=== PATIENT | male | born 1945 | race Caucasian/White ===

== ENCOUNTER 2018-05-31 15:32 | Inpatient (IN) | payer OTHER, MEDICARE ==
[2018-05-31] MEDS ORDERED: SODIUM CHLORIDE 0.9% 1,000 ML IV ONE (15:46)
[2018-05-31] MEDS ORDERED: SODIUM CHLORIDE 0.9% 500 ML IV ONE (15:46)
--- NOTE | 2018-05-31 16:28 | ED ---
General Adult HPI - General Chief complaint: Altered Mental Status Stated complaint: Dehydrated Time Seen by Provider: 05/31/18 15:34 Source: patient, EMS, RN notes reviewed, old records reviewed Mode of arrival: EMS Limitations: altered mental status - History of Present Illness Initial comments: 73-year-old male, found in his apartment with chief complaint of altered mental status. He was found by police, EMS were called. Patient was covered in feces. He is normally alert and oriented, today he is confused. Patient was in a warm environment. No history obtained from the patient. On initial evaluation, he is confused. He is moving all extremities symmetrically. Unknown time course exactly, however EMS state that there was a well check on the patient yesterday and he appeared normal at that time. Patient also admits to alcohol consumption, states his last drink was 2-3 days ago. - Related Data Home Medications Medication Instructions Recorded Confirmed No Known Home Medications 05/31/18 05/31/18 Allergies Allergy/AdvReac Type Severity Reaction Status Date / Time adhesive tape Allergy Rash/Hives Verified 05/31/18 16:47 Review of Systems ROS Statement: Those systems with pertinent positive or pertinent negative responses have been documented in the HPI. ROS Other: All systems not noted in ROS Statement are negative. Past Medical History Past Medical History: No Reported History, Myocardial Infarction ([place]), Osteoarthritis (OA) Additional Past Medical History / Comment(s): alcoholism Last Myocardial Infarction Date:: 1995 History of Any Multi-Drug Resistant Organisms: None Reported Past Surgical History: Orthopedic Surgery Additional Past Surgical History / Comment(s): left shoulder sx (shrapnel was in ) Past Anesthesia/Blood Transfusion Reactions: No Reported Reaction Additional Past Anesthesia/Blood Transfusion Reaction / Comment(s): no hx of transfusions Past Psychological History: No Psychological Hx Reported, PTSD Smoking Status: Current some day smoker Past Alcohol Use History: Abuse Past Drug Use History: None Reported - Past Family History Father Family Medical History: Cancer Additional Family Medical History / Comment(s): from Lung CA Mother Family Medical History: CVA/TIA, Myocardial Infarction ([place]) Additional Family Medical History / Comment(s): from [place] 04/2016 General Exam Limitations: altered mental status General appearance: in no apparent distress Head exam: Present: atraumatic, normocephalic Eye exam: Present: normal appearance, PERRL ENT exam: Present: mucous membranes dry Neck exam: Present: normal inspection. Absent: tenderness, meningismus Respiratory exam: Present: normal lung sounds bilaterally. Absent: respiratory distress, wheezes Cardiovascular Exam: Present: normal rhythm, bradycardia GI/Abdominal exam: Present: soft. Absent: distended, tenderness Extremities exam: Present: normal inspection, normal capillary refill. Absent: pedal edema Neurological exam: Absent: oriented X3, motor sensory deficit Skin exam: Present: warm, dry, intact. Absent: cyanosis, diaphoretic Course Vital Signs 05/31/18 05/31/18 15:43 18:28 Temperature 99.5 F Pulse Rate 57 L 77 Respiratory 18 18 Rate Blood Pressure 118/64 126/69 O2 Sat by Pulse 99 100 Oximetry EKG Findings - EKG Comments: EKG Findings:: EKG: Sinus rhythm with short WI, rate of 78, WI interval 108, QRS duration 96 QTC 456. Medical Decision Making - Medical Decision Making 73-year-old male presenting from home with altered level of consciousness. Minimal history available at the time my evaluation. Patient's neurologic exam is nonfocal. His pupils are equal round reactive to light. There is apparently some history of alcohol use, patient states his last drink was [address] is obtained, this is negative for intracranial hemorrhage or mass effect. Chest x-ray shows some pleural scarring with no focal pneumonia or acute process. Laboratory studies reveal white blood cell count 7.1, hemoglobin is 7 with most recent for comparison is hemoglobin of 12. He does have history of GI bleed in the past. Hemoccult is obtained and this is negative. There is no bright red bleeding per rectum, no melanotic stool. Electrolytes reveal sodium of 126 with recent comparison of 135. Urinalysis shows 2+ ketones consistent with dehydration. Troponin is elevated at 0.224. EKG does not show any definitive signs of acute ischemia. This level will be trended. No heparin initiated as patient's hemoglobin is 7 and there is uncertainty of current bleeding. He is started on protonix. He is given 1 unit of blood given the low hemoglobin and elevated troponin. He will be admitted for further treatment and evaluation. - Lab Data Result diagrams: 05/31/18 17:06 05/31/18 17:06 Lab Results 05/31/18 05/31/18 05/31/18 Range/Units 17:06 17:06 17:06 WBC 7.1 (3.8-10.6) k/uL RBC 3.89 L (4.30-5.90) m/uL Hgb 7.0 L* (13.0-17.5) gm/dL Hct 25.4 L (39.0-53.0) % MCV 65.3 L (80.0-100.0) fL MCH 17.9 L (25.0-35.0) pg MCHC 27.4 L (31.0-37.0) g/dL RDW 18.2 H (11.5-15.5) % Plt Count 341 (150-450) k/uL Neutrophils % 83 % Lymphocytes % 10 % Monocytes % 6 % Eosinophils % 1 % Basophils % 0 % Neutrophils # 5.9 (1.3-7.7) k/uL Lymphocytes # 0.7 L (1.0-4.8) k/uL Monocytes # 0.4 (0-1.0) k/uL Eosinophils # 0.1 (0-0.7) k/uL Basophils # 0.0 (0-0.2) k/uL Manual Slide Review Performed Large Platelets Present Polychromasia Present Hypochromasia Marked Poikilocytosis Slight Poikilocytosis (manual Present Anisocytosis Slight Microcytosis Marked Target Cells Present PT (9.0-12.0) sec INR (<1.2) APTT (22.0-30.0) sec Sodium 126 L (137-145) mmol/L Potassium 4.2 (3.5-5.1) mmol/L Chloride 91 L (98-107) mmol/L Carbon Dioxide 21 L (22-30) mmol/L Anion Gap 14 mmol/L BUN 7 L (9-20) mg/dL Creatinine 0.64 L (0.66-1.25) mg/dL Est GFR (CKD-EPI)AfAm >90 (>60 ml/min/1.73 sqM) Est GFR (CKD-EPI)NonAf >90 (>60 ml/min/1.73 sqM) Glucose 79 (74-99) mg/dL Calcium 8.0 L (8.4-10.2) mg/dL Total Bilirubin 0.8 (0.2-1.3) mg/dL AST 46 (17-59) U/L ALT 34 (21-72) U/L Alkaline Phosphatase 69 (38-126) U/L Total Creatine Kinase 492 H (55-170) U/L CK-MB (CK-2) 4.4 H* (0.0-2.4) ng/mL CK-MB (CK-2) Rel Index 0.9 Troponin I 0.224 H* (0.000-0.034) ng/mL Total Protein 6.0 L (6.3-8.2) g/dL Albumin 3.2 L (3.5-5.0) g/dL Urine Color Urine Appearance (Clear) Urine pH (5.0-8.0) Ur Specific [place] (1.001-1.035) Urine Protein (Negative) Urine Glucose (UA) (Negative) Urine Ketones (Negative) Urine Blood (Negative) Urine Nitrite (Negative) Urine Bilirubin (Negative) Urine Urobilinogen (<2.0) mg/dL Ur Leukocyte Esterase (Negative) Stool Occult Blood (Negative) Urine Opiates Screen (NotDetected) Ur Oxycodone Screen (NotDetected) Urine Methadone Screen (NotDetected) Ur Propoxyphene Screen (NotDetected) Ur Barbiturates Screen (NotDetected) U Tricyclic Antidepress (NotDetected) Ur Phencyclidine Scrn (NotDetected) Ur Amphetamines Screen (NotDetected) U Methamphetamines Scrn (NotDetected) U Benzodiazepines Scrn (NotDetected) Urine Cocaine Screen (NotDetected) U Marijuana (THC) Screen (NotDetected) Serum Alcohol <10 mg/dL 05/31/18 05/31/18 05/31/18 Range/Units 17:06 18:15 18:24 WBC (3.8-10.6) k/uL RBC (4.30-5.90) m/uL Hgb (13.0-17.5) gm/dL Hct (39.0-53.0) % MCV (80.0-100.0) fL MCH (25.0-35.0) pg MCHC (31.0-37.0) g/dL RDW (11.5-15.5) % Plt Count (150-450) k/uL Neutrophils % % Lymphocytes % % Monocytes % % Eosinophils % % Basophils % % Neutrophils # (1.3-7.7) k/uL Lymphocytes # (1.0-4.8) k/uL Monocytes # (0-1.0) k/uL Eosinophils # (0-0.7) k/uL Basophils # (0-0.2) k/uL Manual Slide Review Large Platelets Polychromasia Hypochromasia Poikilocytosis Poikilocytosis (manual Anisocytosis Microcytosis Target Cells PT 11.4 (9.0-12.0) sec INR 1.2 H (<1.2) APTT 27.9 (22.0-30.0) sec Sodium (137-145) mmol/L Potassium (3.5-5.1) mmol/L Chloride (98-107) mmol/L Carbon Dioxide (22-30) mmol/L Anion Gap mmol/L BUN (9-20) mg/dL Creatinine (0.66-1.25) mg/dL Est GFR (CKD-EPI)AfAm (>60 ml/min/1.73 sqM) Est GFR (CKD-EPI)NonAf (>60 ml/min/1.73 sqM) Glucose (74-99) mg/dL Calcium (8.4-10.2) mg/dL Total Bilirubin (0.2-1.3) mg/dL AST (17-59) U/L ALT (21-72) U/L Alkaline Phosphatase (38-126) U/L Total Creatine Kinase (55-170) U/L CK-MB (CK-2) (0.0-2.4) ng/mL CK-MB (CK-2) Rel Index Troponin I (0.000-0.034) ng/mL Total Protein (6.3-8.2) g/dL Albumin (3.5-5.0) g/dL Urine Color Yellow Urine Appearance Clear (Clear) Urine pH 5.5 (5.0-8.0) Ur Specific [place] 1.010 (1.001-1.035) Urine Protein Negative (Negative) Urine Glucose (UA) Negative (Negative) Urine Ketones 2+ H (Negative) Urine Blood Negative (Negative) Urine Nitrite Negative (Negative) Urine Bilirubin Negative (Negative) Urine Urobilinogen <2.0 (<2.0) mg/dL Ur Leukocyte Esterase Negative (Negative) Stool Occult Blood Negative (Negative) Urine Opiates Screen Not Detected (NotDetected) Ur Oxycodone Screen Not Detected (NotDetected) Urine Methadone Screen Not Detected (NotDetected) Ur Propoxyphene Screen Not Detected (NotDetected) Ur Barbiturates Screen Not Detected (NotDetected) U Tricyclic Antidepress Not Detected (NotDetected) Ur Phencyclidine Scrn Not Detected (NotDetected) Ur Amphetamines Screen Not Detected (NotDetected) U Methamphetamines Scrn Not Detected (NotDetected) U Benzodiazepines Scrn Not Detected (NotDetected) Urine Cocaine Screen Not Detected (NotDetected) U Marijuana (THC) Screen Not Detected (NotDetected) Serum Alcohol mg/dL Critical Care Time Critical Care Time: Yes Total Critical Care Time: 35 Disposition Clinical Impression: Altered mental status, Hyponatremia, Anemia Disposition: ADMITTED IP TO THIS [facility] Condition: Serious Is patient prescribed a controlled substance at d/c from ED?: No Referrals: Rowan Del Castillo MD [STAFF PHYSICIAN] - 1-2 days Decision to Admit Reason: Admit from EC Decision Date: 05/31/18 Decision Time: 19:31
[2018-05-31 17:24] LABS: Anisocytosis Slight; Basophils % (A) 0 %; Eosinophils # (A) 0.1 k/uL (0-0.7); Eosinophils % (A) 1 %; HCT 25.4 % (39.0-53.0); Hypochromasia Marked; Lymphocytes # (A) 0.7 k/uL (1.0-4.8); Lymphocytes % (A) 10 %; MCH 17.9 pg (25.0-35.0); MCHC 27.4 g/dL (31.0-37.0); MCV 65.3 fL (80.0-100.0); Mean Platelet Volume 6.8; Microcytosis Marked; Monocytes # (A) 0.4 k/uL (0-1.0); Monocytes % (A) 6 %; Neutrophils # (A) 5.9 k/uL (1.3-7.7); Neutrophils % (A) 83 %; Platelet Count 341 k/uL (150-450); Poikilocytosis Slight; RBC 3.89 m/uL (4.30-5.90); RDW 18.2 % (11.5-15.5); WBC 7.1 k/uL (3.8-10.6)
--- NOTE | 2018-05-31 17:40 | CT ---
EXAMINATION TYPE: CT brain wo con DATE OF EXAM: 05/31/2018 COMPARISON: NONE HISTORY: Patient having altered mental status. CT DLP: 1266 mGycm Automated exposure control for dose reduction was used. FINDINGS: There is cerebral cortical atrophy. There is no mass effect nor midline shift. There is no sign of in tracranial hemorrhage. There is some hypodensity in the periventricular white matter. The calvarium i s intact. IMPRESSION: CEREBRAL ATROPHY AND CHRONIC SMALL VESSEL ISCHEMIA. NO ACUTE INTRACRANIAL ABNORMALITY.
[2018-05-31 17:44] LABS: ALT 34 U/L (21-72); AST 46 U/L (17-59); Albumin 3.2 g/dL (3.5-5.0); Alcohol <10 mg/dL; Alkaline Phosphatase 69 U/L (38-126); Anion Gap 14 mmol/L; Blood Urea Nitrogen 7 mg/dL (9-20); Carbon Dioxide 21 mmol/L (22-30); Chloride 91 mmol/L (98-107); Glucose 79 mg/dL (74-99); Potassium 4.2 mmol/L (3.5-5.1); Sodium 126 mmol/L (137-145); Total Bilirubin 0.8 mg/dL (0.2-1.3)
--- NOTE | 2018-05-31 17:44 | XR ---
EXAMINATION TYPE: XR chest 2V DATE OF EXAM: 05/31/2018 COMPARISON: 11/09/2016 HISTORY: Altered mental status TECHNIQUE: Frontal and lateral views of the chest are obtained. FINDINGS: There is no heart failure nor confluent pneumonic infiltrate. There is slight blunting of left costophrenic angle. Thoracic aorta is atheromatous. Mediastinum is not enlarged. IMPRESSION: Mild pleural diaphragmatic scarring at the left lung base without change.
[2018-05-31 17:45] LABS: INR 1.2 (<1.2); Partial Thromboplastin Time 27.9 sec (22.0-30.0); Prothrombin Time 11.4 sec (9.0-12.0)
[2018-05-31 17:55] LABS: Large Platelets Present; Poikilocytosis (M) Present; Polychromasia Present; Target Cells Present
[2018-05-31 17:59] LABS: Creatine Kinase MB 4.4 ng/mL (0.0-2.4); Troponin I 0.224 ng/mL (0.000-0.034)
[2018-05-31] MEDS ORDERED: LORazepam 2 MG/ML INJ IV PRN ×3 (18:10)
[2018-05-31] MEDS ORDERED: THIAMINE 100 MG/ML 2 ML VIAL IM STA (18:10)
[2018-05-31 18:37] LABS: Appearance,Urine Clear (Clear); Bilirubin,Urine Negative (Negative); Blood,Urine Negative (Negative); Color,Urine Yellow; Glucose,Urine (UA) Negative (Negative); Ketones,Urine 2+ (Negative); Leukocyte Esterase,Urine Negative (Negative); Nitrite,Urine Negative (Negative); PH, Urine 5.5 (5.0-8.0); Protein,Urine Negative (Negative); Urobilinogen,Urine <2.0 mg/dL (<2.0)
[2018-05-31 18:47] LABS: Urn Cannabinoid Scrn Not Detected (NotDetected)
[2018-05-31 18:48] LABS: Amphetamine Screen,Urine Not Detected (NotDetected); Barbiturate Screen,Urine Not Detected (NotDetected); Benzodiazepines Screen,Urine Not Detected (NotDetected); Cocaine Screen,Urine Not Detected (NotDetected); Methadone Screen, Urine Not Detected (NotDetected); Opiate Screen,Urine Not Detected (NotDetected); Oxycodone Screen, Urine Not Detected (NotDetected); Phencyclidine Screen,Urine Not Detected (NotDetected); Tricyclic Antidepressant,Urine Not Detected (NotDetected)
[2018-05-31] MEDS ORDERED: PANTOPRAZOLE 40 MG/10 ML VIAL IVP STA (19:05)
[2018-05-31] MEDS ORDERED: NALOXONE 0.4 MG/ML 1 ML VIAL IV PRN (19:19)
[2018-05-31] MEDS ORDERED: ACETAMINOPHEN TAB 500 MG TAB PO STA (21:30)
[2018-05-31] MEDS ORDERED: ACETAMINOPHEN TAB 325 MG TAB PO STA (22:00)
[2018-06-01 06:50] LABS: Anisocytosis Slight; Basophils % (A) 0 %; Eosinophils # (A) 0.1 k/uL (0-0.7); Eosinophils % (A) 1 %; HCT 26.3 % (39.0-53.0); HGB 7.3 gm/dL (13.0-17.5); Hypochromasia Marked; Lymphocytes # (A) 1.1 k/uL (1.0-4.8); Lymphocytes % (A) 20 %; MCH 19.1 pg (25.0-35.0); MCHC 27.9 g/dL (31.0-37.0); MCV 68.3 fL (80.0-100.0); Microcytosis Marked; Monocytes # (A) 0.5 k/uL (0-1.0); Monocytes % (A) 10 %; Neutrophils # (A) 3.5 k/uL (1.3-7.7); Neutrophils % (A) 67 %; Platelet Count 267 k/uL (150-450); Poikilocytosis Moderate; RBC 3.86 m/uL (4.30-5.90); RDW 19.5 % (11.5-15.5); WBC 5.2 k/uL (3.8-10.6)
[2018-06-01 07:12] LABS: Anion Gap 11 mmol/L; Blood Urea Nitrogen 7 mg/dL (9-20); Calcium 7.8 mg/dL (8.4-10.2); Carbon Dioxide 22 mmol/L (22-30); Chloride 98 mmol/L (98-107); Glucose 77 mg/dL (74-99); Potassium 3.7 mmol/L (3.5-5.1); Sodium 131 mmol/L (137-145)
[2018-06-01] MEDS: PANTOPRAZOLE 40 MG/10 ML VIAL IVP SCH ×2 (09:04→19:35)
[2018-06-01] MEDS: THIAMINE 100 MG TAB PO SCH ×2 (11:25→17:54)
--- NOTE | 2018-06-01 17:30 | P.HPIM ---
History of Present Illness 70-year-old male was brought in with altered mental status was completely covered in feces apparently when he came to the hospital. Patient appeared to be severely dehydrated hyponatremic. Patient's is able to give a good history to me although definitely confused alert oriented times almost 2-3. Patient's sodium did improve with IV fluids after that his mental status improved. Patient did tell me that his last alcohol use was 2-3 days ago patient presently doesn't have any all call withdraws serum alcohol level was less than 10 [address] it appears like patient lives in a trailer. Review of Systems All other systems are negative except those mentioned above Past Medical History Past Medical History: No Reported History, Myocardial Infarction ([place]), Osteoarthritis (OA) Additional Past Medical History / Comment(s): alcoholism Last Myocardial Infarction Date:: 1995 History of Any Multi-Drug Resistant Organisms: None Reported Past Surgical History: Orthopedic Surgery Additional Past Surgical History / Comment(s): left shoulder sx (shrapnel was in ) Past Anesthesia/Blood Transfusion Reactions: No Reported Reaction Additional Past Anesthesia/Blood Transfusion Reaction / Comment(s): no hx of transfusions Past Psychological History: No Psychological Hx Reported, PTSD Smoking Status: Current every day smoker Past Alcohol Use History: Abuse Past Drug Use History: None Reported - Past Family History Father Family Medical History: Cancer Additional Family Medical History / Comment(s): from Lung CA Mother Family Medical History: CVA/TIA, Myocardial Infarction ([place]) Additional Family Medical History / Comment(s): from [place] 04/2016 Medications and Allergies Home Medications Medication Instructions Recorded Confirmed Type No Known Home Medications 05/31/18 05/31/18 History Allergies Allergy/AdvReac Type Severity Reaction Status Date / Time adhesive tape Allergy Rash/Hives Verified 05/31/18 16:47 Physical Exam Vitals: Vital Signs Temp Pulse Pulse Resp BP BP Pulse Ox 06/01/18 11:25 97.8 F 64 16 101/57 96 06/01/18 08:57 97 06/01/18 08:00 98.5 F 70 16 96/55 97 06/01/18 04:00 99.3 F 73 18 93/53 97 06/01/18 00:00 75 17 05/31/18 23:58 97.8 F 75 17 95/63 98 05/31/18 23:29 97.8 F 74 17 95/63 100 05/31/18 22:30 98.8 F 74 17 101/59 100 05/31/18 22:03 100.0 F H 90 16 111/56 100 05/31/18 21:33 100.3 F H 73 16 109/59 99 05/31/18 21:22 100.7 F H 75 16 105/59 05/31/18 18:28 77 18 126/69 100 Intake and Output 06/01/18 06/01/18 06/01/18 06:59 14:59 22:59 Intake Total 1245 360 Output Total 950 Balance 295 360 Intake: Intake, IV Titration 375 Amount Sodium Chloride 0.9% 1, 375 000 ml @ 75 mls/hr IV . [id number] Rx#:[id number] Oral 250 360 Blood Product 620 Rc As-1 Unit 310 [id number] Output: Urine 950 Other: Voiding Method Urinal # Voids 1 1 # Bowel Movements 0 Weight 63.1 kg PHYSICAL EXAMINATION: GENERAL: The patient is alert and oriented x2-3, desheveled, appears to have some baseline confusion from chronic encephalopathy from alcoholism HEENT: Pupils are round and equally reacting to light. EOMI. No scleral icterus. No conjunctival pallor. Normocephalic, atraumatic. No pharyngeal erythema. No thyromegaly. CARDIOVASCULAR: S1 and S2 present. No murmurs, rubs, or gallops. PULMONARY: Chest is clear to auscultation, no wheezing or crackles. ABDOMEN: Soft, nontender, nondistended, normoactive bowel sounds. No palpable organomegaly. MUSCULOSKELETAL: No joint swelling or deformity. EXTREMITIES: No cyanosis, clubbing, or pedal edema. NEUROLOGICAL: Gross neurological examination did not reveal any focal deficits. SKIN: No rashes. Results CBC & Chem 7: 06/01/18 06:21 06/01/18 06:21 Labs: Abnormal Lab Results - Last 24 Hours (Table) 05/31/18 05/31/18 05/31/18 Range/Units 17:01 17:06 17:06 RBC 3.89 L (4.30-5.90) m/uL Hgb 7.0 L* (13.0-17.5) gm/dL Hct 25.4 L (39.0-53.0) % MCV 65.3 L (80.0-100.0) fL MCH 17.9 L (25.0-35.0) pg MCHC 27.4 L (31.0-37.0) g/dL RDW 18.2 H (11.5-15.5) % Lymphocytes # 0.7 L (1.0-4.8) k/uL INR (<1.2) Sodium (137-145) mmol/L Chloride (98-107) mmol/L Carbon Dioxide (22-30) mmol/L BUN (9-20) mg/dL Creatinine (0.66-1.25) mg/dL Calcium (8.4-10.2) mg/dL Total Creatine Kinase 492 H (55-170) U/L CK-MB (CK-2) 4.4 H* (0.0-2.4) ng/mL Troponin I 0.224 H* (0.000-0.034) ng/mL Total Protein (6.3-8.2) g/dL Albumin (3.5-5.0) g/dL Urine Ketones (Negative) Crossmatch See Detail 05/31/18 05/31/18 05/31/18 Range/Units 17:06 17:06 18:24 RBC (4.30-5.90) m/uL Hgb (13.0-17.5) gm/dL Hct (39.0-53.0) % MCV (80.0-100.0) fL MCH (25.0-35.0) pg MCHC (31.0-37.0) g/dL RDW (11.5-15.5) % Lymphocytes # (1.0-4.8) k/uL INR 1.2 H (<1.2) Sodium 126 L (137-145) mmol/L Chloride 91 L (98-107) mmol/L Carbon Dioxide 21 L (22-30) mmol/L BUN 7 L (9-20) mg/dL Creatinine 0.64 L (0.66-1.25) mg/dL Calcium 8.0 L (8.4-10.2) mg/dL Total Creatine Kinase (55-170) U/L CK-MB (CK-2) (0.0-2.4) ng/mL Troponin I (0.000-0.034) ng/mL Total Protein 6.0 L (6.3-8.2) g/dL Albumin 3.2 L (3.5-5.0) g/dL Urine Ketones 2+ H (Negative) Crossmatch 06/01/18 06/01/18 Range/Units 06:21 06:21 RBC 3.86 L (4.30-5.90) m/uL Hgb 7.3 L (13.0-17.5) gm/dL Hct 26.3 L (39.0-53.0) % MCV 68.3 L (80.0-100.0) fL MCH 19.1 L (25.0-35.0) pg MCHC 27.9 L (31.0-37.0) g/dL RDW 19.5 H (11.5-15.5) % Lymphocytes # (1.0-4.8) k/uL INR (<1.2) Sodium 131 L (137-145) mmol/L Chloride (98-107) mmol/L Carbon Dioxide (22-30) mmol/L BUN 7 L (9-20) mg/dL Creatinine 0.59 L (0.66-1.25) mg/dL Calcium 7.8 L (8.4-10.2) mg/dL Total Creatine Kinase (55-170) U/L CK-MB (CK-2) (0.0-2.4) ng/mL Troponin I (0.000-0.034) ng/mL Total Protein (6.3-8.2) g/dL Albumin (3.5-5.0) g/dL Urine Ketones (Negative) Crossmatch Thrombosis Risk Factor Assmnt - Choose All That Apply Each Risk Factor Represents 2 Points: Age 61-74 years Thrombosis Risk Factor Assessment Total Risk Factor Score: 2 Thrombosis Risk Factor Assessment Level: Low Risk Assessment and Plan Plan: -Altered mental status secondary to severe dehydration and metabolic encephalopathy and hyponatremia improved with IV fluids. 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
[2018-06-01] MEDS: SODIUM CHLORIDE 0.9% 1,000 ML IV SCH ×2 (19:40→22:43)
[2018-06-02 06:22] LABS: Anisocytosis Slight; HCT 24.1 % (39.0-53.0); Hypochromasia Marked; MCH 19.2 pg (25.0-35.0); MCHC 28.2 g/dL (31.0-37.0); MCV 68.1 fL (80.0-100.0); Mean Platelet Volume 7.1; Microcytosis Marked; Platelet Count 234 k/uL (150-450); Poikilocytosis Moderate; RBC 3.53 m/uL (4.30-5.90); RDW 19.8 % (11.5-15.5); WBC 5.1 k/uL (3.8-10.6)
[2018-06-02 06:30] LABS: HGB 6.8 gm/dL (13.0-17.5)
[2018-06-02 06:39] LABS: Anion Gap 8 mmol/L; Blood Urea Nitrogen 7 mg/dL (9-20); Calcium 7.7 mg/dL (8.4-10.2); Carbon Dioxide 24 mmol/L (22-30); Chloride 99 mmol/L (98-107); Glucose 86 mg/dL (74-99); Potassium 3.3 mmol/L (3.5-5.1); Sodium 131 mmol/L (137-145)
[2018-06-02 09:48] LABS: Anisocytosis Slight; Basophils % (A) 1 %; Eosinophils # (A) 0.1 k/uL (0-0.7); Eosinophils % (A) 1 %; HCT 24.7 % (39.0-53.0); Hypochromasia Marked; Lymphocytes # (A) 0.9 k/uL (1.0-4.8); Lymphocytes % (A) 18 %; MCH 19.2 pg (25.0-35.0); MCHC 27.9 g/dL (31.0-37.0); Mean Platelet Volume 7.9; Microcytosis Marked; Monocytes # (A) 0.4 k/uL (0-1.0); Monocytes % (A) 8 %; Neutrophils # (A) 3.6 k/uL (1.3-7.7); Neutrophils % (A) 71 %; Platelet Count 234 k/uL (150-450); Poikilocytosis Moderate; RBC 3.58 m/uL (4.30-5.90); RDW 19.6 % (11.5-15.5)
[2018-06-02 09:50] LABS: HGB 6.9 gm/dL (13.0-17.5)
[2018-06-02] MEDS ORDERED: Potassium Replacement Protocol 1 EACH MISC MISCELLANE PRN (10:23)
[2018-06-02] MEDS: PANTOPRAZOLE 40 MG/10 ML VIAL IVP SCH ×2 (10:46→20:16)
[2018-06-02] MEDS: SODIUM CHLORIDE 0.9% 1,000 ML IV SCH ×2 (10:50→20:15)
[2018-06-02] MEDS: POTASSIUM CHLORIDE ER 20 MEQ TAB.ER PO SCH ×2 (11:21→13:11)
[2018-06-02] MEDS: THIAMINE 100 MG TAB PO SCH ×2 (11:25→15:38)
[2018-06-03] MEDS: SODIUM CHLORIDE 0.9% 1,000 ML IV SCH ×3 (06:27→20:02)
[2018-06-03 08:57] LABS: Anion Gap 8 mmol/L; Blood Urea Nitrogen 5 mg/dL (9-20); Carbon Dioxide 26 mmol/L (22-30); Chloride 101 mmol/L (98-107); Glucose 84 mg/dL (74-99); Potassium 3.4 mmol/L (3.5-5.1); Sodium 135 mmol/L (137-145)
[2018-06-03] MEDS: PANTOPRAZOLE 40 MG/10 ML VIAL IVP SCH ×2 (08:57→20:02)
[2018-06-03 11:29] LABS: Anisocytosis Moderate; HCT 25.2 % (39.0-53.0); Hypochromasia Marked; MCH 19.3 pg (25.0-35.0); MCHC 27.7 g/dL (31.0-37.0); MCV 69.6 fL (80.0-100.0); Mean Platelet Volume 7.3; Microcytosis Marked; Platelet Count 248 k/uL (150-450); Poikilocytosis Moderate; RBC 3.62 m/uL (4.30-5.90); RDW 20.4 % (11.5-15.5); WBC 5.6 k/uL (3.8-10.6)
[2018-06-03] MEDS ORDERED: SODIUM FERRIC GLUCONAT-SUCROSE 125 MG in SODIUM CHLORIDE 0.9% 100 ML IVPB ONE (12:00)
[2018-06-03] MEDS: THIAMINE 100 MG TAB PO SCH ×2 (12:44→17:29)
[2018-06-03] MEDS ORDERED: POTASSIUM CHLORIDE ER 20 MEQ TAB.ER PO STA (12:47)
--- NOTE | 2018-06-03 12:50 | P.PN ---
Subjective Progress Note Date: 06/02/18 70-year-old man came in extremely disheveled state, alcohol abuse altered mental status and hyponatremia which improved hyponatremia secondary to intravascular depletion and due to alcoholism. Patient was evaluated by physical therapy and will require placement to subacute rehabilitation. Also mental status is improving significantly and patient is available to provide me good history today. Constitutional: Denied any fatigue denied any fever. Cardio vascular: denied any chest pain, palpitations Gastrointestinal denied any nausea vomiting Pulmonary: Denied any shortness of breath cough Neurologic denied any new focal deficits Objective - Vital Signs Vital signs: Vital Signs Temp 98.2 F 06/03/18 11:34 Pulse 63 06/03/18 11:34 Resp 18 06/03/18 11:34 BP 136/63 06/03/18 11:34 Pulse Ox 100 06/03/18 11:34 Intake & Output 06/02/18 06/03/18 06/03/18 18:59 06:59 18:59 Intake Total 1340 800 0 Output Total 125 200 Balance 1215 600 0 Weight 52 kg Intake: Intake, IV Titration 750 800 Amount Sodium Chloride 0.9% 1, 750 800 000 ml @ 100 mls/hr IV . Q10H [place] Rx#:[id number] Oral 590 0 Output: Urine 125 200 Other: Voiding Method Urinal Urinal # Voids 2 # Bowel Movements 1 - Exam PHYSICAL EXAMINATION: GENERAL: The patient is alert and oriented x3, desheveled, patient confusion significantly improved HEENT: Pupils are round and equally reacting to light. EOMI. No scleral icterus. No conjunctival pallor. Normocephalic, atraumatic. No pharyngeal erythema. No thyromegaly. CARDIOVASCULAR: S1 and S2 present. No murmurs, rubs, or gallops. PULMONARY: Chest is clear to auscultation, no wheezing or crackles. ABDOMEN: Soft, nontender, nondistended, normoactive bowel sounds. No palpable organomegaly. MUSCULOSKELETAL: No joint swelling or deformity. EXTREMITIES: No cyanosis, clubbing, or pedal edema. NEUROLOGICAL: Gross neurological examination did not reveal any focal deficits. SKIN: No rashes. - Labs CBC & Chem 7: 06/03/18 08:27 06/03/18 08:27 Labs: Abnormal Lab Results - Last 24 Hours (Table) 05/31/18 06/03/18 06/03/18 Range/Units 17:01 08:27 08:27 RBC 3.62 L (4.30-5.90) m/uL Hgb 7.0 L* (13.0-17.5) gm/dL Hct 25.2 L (39.0-53.0) % MCV 69.6 L (80.0-100.0) fL MCH 19.3 L (25.0-35.0) pg MCHC 27.7 L (31.0-37.0) g/dL RDW 20.4 H (11.5-15.5) % Sodium 135 L (137-145) mmol/L Potassium 3.4 L (3.5-5.1) mmol/L BUN 5 L (9-20) mg/dL Creatinine 0.64 L (0.66-1.25) mg/dL Calcium 8.0 L (8.4-10.2) mg/dL Crossmatch See Detail Assessment and Plan Plan: -Altered mental status secondary to severe dehydration and metabolic encephalopathy and hyponatremia improved with IV fluids. 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
--- NOTE | 2018-06-03 13:45 | P.DS ---
Providers Date of admission: 05/31/18 21:21 Attending physician: Agustín Gloria Primary care physician: [facility] Course: 70-year-old man came in extremely disheveled state, alcohol abuse altered mental status and hyponatremia which improved hyponatremia secondary to intravascular depletion and due to alcoholism. Patient was evaluated by physical therapy and will require placement to subacute rehabilitation. Also mental status is improving significantly and patient is available to provide me good history today. 06/03/2018 Patient mental status improved significantly will require subacute rehabilitation will work on discharging to subacute rehab. Patient is anemic received 1 unit of blood transfusion patient has hemodilution 3 affect because of which a patient's hemoglobin didn't go up frequently patient's hemoglobin is 7 at this time patient is asymptomatic. Patient has severe iron deficiency patient will be transfused IV iron. Patient will be discharged on oral and. PHYSICAL EXAMINATION: GENERAL: The patient is alert and oriented x3, not in any acute distress. Thin built HEENT: Pupils are round and equally reacting to light. EOMI. No scleral icterus. No conjunctival pallor. Normocephalic, atraumatic. No pharyngeal erythema. No thyromegaly. CARDIOVASCULAR: S1 and S2 present. No murmurs, rubs, or gallops. PULMONARY: Chest is clear to auscultation, no wheezing or crackles. ABDOMEN: Soft, nontender, nondistended, normoactive bowel sounds. No palpable organomegaly. MUSCULOSKELETAL: No joint swelling or deformity. EXTREMITIES: No cyanosis, clubbing, or pedal edema. NEUROLOGICAL: Does have generalized weakness SKIN: No rashes. Assessment and Plan Plan: -Altered mental status secondary to severe dehydration and metabolic encephalopathy and hyponatremia improved with IV fluids. 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 -PTSD -Nicotine abuse -generalized deconditioning secondary to alcoholism, PT and OT evaluation patient may need placement in subacute rehabilitation -Alcohol withdrawal: Patient is not having withdrawals Patient Condition at Discharge: Serious Plan - Discharge Summary New Discharge Prescriptions: New Ferrous Sulfate [Feosol] 325 mg PO BID #60 tab Folic Acid-Vit B Complex-Vit C [Nephrocaps] 1 mg PO DAILY #30 capsule PARoxetine HCL [Paxil] 10 mg PO DAILY #30 tab Thiamine [Vitamin B-1] 100 mg PO DAILY #30 tablet Polyethylene Glycol 3350 [Miralax] 17 gm PO DAILY PRN #15 packet PRN Reason: Constipation Discharge Medication List Ferrous Sulfate [Feosol] 325 mg PO BID #60 tab 06/03/18 [Rx] Folic Acid-Vit B Complex-Vit C [Nephrocaps] 1 mg PO DAILY #30 capsule 06/03/18 [ Rx] PARoxetine HCL [Paxil] 10 mg PO DAILY #30 tab 06/03/18 [Rx] Polyethylene Glycol 3350 [Miralax] 17 gm PO DAILY PRN #15 packet 06/03/18 [Rx] Thiamine [Vitamin B-1] 100 mg PO DAILY #30 tablet 06/03/18 [Rx] Follow up Appointment(s)/Referral(s): Rowan Del Castillo MD [STAFF PHYSICIAN] - 3 Days Discharge Disposition: TRANSFER TO SNF/ECF
[2018-06-04] MEDS: PANTOPRAZOLE 40 MG/10 ML VIAL IVP SCH ×2 (07:49→20:21)
[2018-06-04] MEDS: SODIUM CHLORIDE 0.9% 1,000 ML IV SCH ×2 (10:10→20:21)
[2018-06-04 11:19] VITALS: BMI 15.5
[2018-06-04] MEDS: THIAMINE 100 MG TAB PO SCH ×2 (12:40→18:26)
[2018-06-04] MEDS ORDERED: Magnesium Replacement Protocol 1 EACH MISC MISCELLANE PRN (16:12)
--- NOTE | 2018-06-04 16:16 | P.PN ---
Subjective Progress Note Date: 06/04/18 Progress note being dictated for Dr. Wahl Interval history:70-year-old man came in extremely disheveled state, alcohol abuse altered mental status and hyponatremia which improved hyponatremia secondary to intravascular depletion and due to alcoholism. Patient was evaluated by physical therapy and will require placement to subacute rehabilitation. Also mental status is improving significantly and patient is available to provide me good history today. 06/03/2018 Patient mental status improved significantly will require subacute rehabilitation will work on discharging to subacute rehab. Patient is anemic received 1 unit of blood transfusion patient has hemodilution 3 affect because of which a patient's hemoglobin didn't go up frequently patient's hemoglobin is 7 at this time patient is asymptomatic. Patient has severe iron deficiency patient will be transfused IV iron. Patient will be discharged on oral and. 06/04/2018 no overnight events. Currently, No DTs, maintained on CIWA PROTOCOL. Social work attempting [facility]. Labs ordered and pending. Objective - Vital Signs Vital signs: Vital Signs Temp 98.6 F 06/04/18 15:00 Pulse 81 06/04/18 15:00 Resp 17 06/04/18 15:00 BP 106/56 06/04/18 15:00 Pulse Ox 100 06/04/18 15:00 Intake & Output 06/03/18 06/04/18 06/04/18 18:59 06:59 18:59 Intake Total 360 800 540 Balance 360 800 540 Weight 52 kg Intake: Intake, IV Titration 800 Amount Sodium Chloride 0.9% 1, 800 000 ml @ 100 mls/hr IV . Q10H FOR[place]ATO Rx#:[id number] Oral 360 540 Other: Voiding Method Urinal Urinal # Voids 1 3 - Exam GENERAL: The patient is alert and oriented x3, not in any acute distress. Thin built HEENT: Pupils are round and equally reacting to light. EOMI. No scleral icterus. No conjunctival pallor. Normocephalic, atraumatic. No pharyngeal erythema. No thyromegaly. CARDIOVASCULAR: S1 and S2 present. No murmurs, rubs, or gallops. PULMONARY: Chest is clear to auscultation, no wheezing or crackles. ABDOMEN: Soft, nontender, nondistended, normoactive bowel sounds. No palpable organomegaly. MUSCULOSKELETAL: No joint swelling or deformity. EXTREMITIES: No cyanosis, clubbing, or pedal edema. NEUROLOGICAL: Does have generalized weakness SKIN: No rashes. - Labs CBC & Chem 7: 06/03/18 08:27 06/03/18 08:27 Assessment and Plan Assessment: -Altered mental status secondary to severe dehydration and metabolic encephalopathy and hyponatremia improved with IV fluids. 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 Maintain gentle IV fluid hydration, CIWA protocol. Labs pending. [place] blind worker assisting in discharge planning, attempting to obtain [facility] for her subacute rehab. Further recommendations to follow. The impression and plan of care has been dictated as directed. : I performed a history and examination of this patient, discussed the same with the dictator. I agree with the dictator's note ,documented as a scribe. Any additional findings or plans will be noted.
[2018-06-04 16:32] LABS: Anisocytosis Moderate; Basophils % (A) 1 %; Eosinophils # (A) 0.2 k/uL (0-0.7); Eosinophils % (A) 4 %; HCT 24.9 % (39.0-53.0); Hypochromasia Marked; Lymphocytes # (A) 1.3 k/uL (1.0-4.8); Lymphocytes % (A) 25 %; MCH 19.2 pg (25.0-35.0); MCHC 27.2 g/dL (31.0-37.0); MCV 70.6 fL (80.0-100.0); Mean Platelet Volume 8.5; Microcytosis Marked; Monocytes # (A) 0.5 k/uL (0-1.0); Monocytes % (A) 9 %; Neutrophils # (A) 2.9 k/uL (1.3-7.7); Neutrophils % (A) 59 %; Platelet Count 206 k/uL (150-450); Poikilocytosis Moderate; RBC 3.52 m/uL (4.30-5.90); RDW 20.9 % (11.5-15.5)
[2018-06-04 16:39] LABS: HGB 6.8 gm/dL (13.0-17.5)
[2018-06-04 16:46] LABS: Anion Gap 7 mmol/L; Blood Urea Nitrogen 6 mg/dL (9-20); Calcium 8.1 mg/dL (8.4-10.2); Carbon Dioxide 28 mmol/L (22-30); Chloride 99 mmol/L (98-107); Glucose 95 mg/dL (74-99); Magnesium 1.8 mg/dL (1.6-2.3); Potassium 3.9 mmol/L (3.5-5.1); Sodium 134 mmol/L (137-145)
[2018-06-05] MEDS: SODIUM CHLORIDE 0.9% 1,000 ML IV SCH ×2 (02:42→14:31)
[2018-06-05] MEDS: PANTOPRAZOLE 40 MG/10 ML VIAL IVP SCH ×2 (08:33→20:13)
[2018-06-05] MEDS: THIAMINE 100 MG TAB PO SCH ×2 (12:20→17:04)
[2018-06-05] MEDS: MULTIVITAMINS, THERA 1 EACH TAB PO SCH (17:03)
[2018-06-06] MEDS: SODIUM CHLORIDE 0.9% 1,000 ML IV SCH ×3 (00:07→21:53)
[2018-06-06 08:02] LABS: Anion Gap 8 mmol/L; Blood Urea Nitrogen 7 mg/dL (9-20); Calcium 8.5 mg/dL (8.4-10.2); Carbon Dioxide 28 mmol/L (22-30); Chloride 98 mmol/L (98-107); Glucose 82 mg/dL (74-99); Potassium 4.4 mmol/L (3.5-5.1); Sodium 134 mmol/L (137-145)
[2018-06-06 08:06] LABS: Anisocytosis Moderate; Basophils % (A) 1 %; Eosinophils # (A) 0.2 k/uL (0-0.7); Eosinophils % (A) 4 %; HCT 26.7 % (39.0-53.0); HGB 7.5 gm/dL (13.0-17.5); Hypochromasia Marked; Lymphocytes # (A) 1.4 k/uL (1.0-4.8); Lymphocytes % (A) 25 %; MCHC 28.1 g/dL (31.0-37.0); MCV 71.1 fL (80.0-100.0); Mean Platelet Volume 6.4; Microcytosis Marked; Monocytes # (A) 0.6 k/uL (0-1.0); Monocytes % (A) 11 %; Neutrophils # (A) 3.3 k/uL (1.3-7.7); Neutrophils % (A) 57 %; Platelet Count 252 k/uL (150-450); Poikilocytosis Slight; RBC 3.76 m/uL (4.30-5.90); RDW 22.1 % (11.5-15.5); WBC 5.8 k/uL (3.8-10.6)
[2018-06-06 10:03] LABS: Target Cells Present; Tear Drop Cells Present
--- NOTE | 2018-06-06 10:49 | P.PN ---
Subjective Progress Note Date: 06/05/18 Principal diagnosis: Encephalopathy Mr. Salamanca is a 73-year-old man came in extremely disheveled state, alcohol abuse altered mental status and hyponatremia which improved secondary to intravascular depletion and due to alcoholism. Patient was evaluated by physical therapy and will require placement to subacute rehabilitation. Also mental status is improving significantly . Patient is comfortably lying in bed appears to be no acute distress. He does not have any active complaints. No overnight active issues reported by nursing staff. Constitutional: Denied any fatigue denied any fever. Cardio vascular: denied any chest pain, palpitations Gastrointestinal denied any nausea vomiting Pulmonary: Denied any shortness of breath cough Neurologic denied any new focal deficits Objective - Vital Signs Vital signs: Vital Signs Temp 98.2 F 06/05/18 05:00 Pulse 73 06/05/18 08:00 Resp 16 06/05/18 08:00 BP 124/57 06/05/18 05:00 Pulse Ox 99 06/05/18 05:00 Intake & Output 06/04/18 06/05/18 06/05/18 18:59 06:59 18:59 Intake Total 1500 840 360 Output Total 500 Balance 1500 840 -140 Weight 52 kg 52 kg Intake: Oral 1500 840 360 Output: Urine 500 Other: Voiding Method Urinal Urinal Urinal # Voids 3 1 - Exam GENERAL: The patient is alert and oriented x3, desheveled, HEENT: Pupils are round and equally reacting to light. EOMI. No scleral icterus. No conjunctival pallor. Normocephalic, atraumatic. No pharyngeal erythema. No thyromegaly. CARDIOVASCULAR: S1 and S2 present. No murmurs, rubs, or gallops. PULMONARY: Chest is clear to auscultation, no wheezing or crackles. ABDOMEN: Soft, nontender, nondistended, normoactive bowel sounds. No palpable organomegaly. MUSCULOSKELETAL: No joint swelling or deformity. EXTREMITIES: No cyanosis, clubbing, or pedal edema. NEUROLOGICAL: Gross neurological examination did not reveal any focal deficits. SKIN: No rashes. - Labs CBC & Chem 7: 06/06/18 06:30 06/06/18 06:30 Labs: Abnormal Lab Results - Last 24 Hours (Table) 06/04/18 06/04/18 Range/Units 16:19 16:19 RBC 3.52 L (4.30-5.90) m/uL Hgb 6.8 L* (13.0-17.5) gm/dL Hct 24.9 L (39.0-53.0) % MCV 70.6 L (80.0-100.0) fL MCH 19.2 L (25.0-35.0) pg MCHC 27.2 L (31.0-37.0) g/dL RDW 20.9 H (11.5-15.5) % Sodium 134 L (137-145) mmol/L BUN 6 L (9-20) mg/dL Creatinine 0.60 L (0.66-1.25) mg/dL Calcium 8.1 L (8.4-10.2) mg/dL Assessment and Plan Assessment: ASSESSMENT -Metabolic encephalopathy - secondary to severe dehydration and hyponatremia improved with IV fluids. 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 PT OT recommended subacute rehab placement for which licensed clinical social worker is on board and trying to find a place, which will probably happen on Thursday.
--- NOTE | 2018-06-06 12:11 | P.PN ---
Subjective Progress Note Date: 06/06/18 Principal diagnosis: Encephalopathy Mr. Salamanca is a 73-year-old man came in extremely disheveled state, alcohol abuse altered mental status and hyponatremia which improved secondary to intravascular depletion and due to alcoholism. Patient was evaluated by physical therapy and will require placement to subacute rehabilitation. Also mental status is improving significantly . Patient is comfortably lying in bed appears to be no acute distress. He does not have any active complaints. No overnight active issues reported by nursing staff. Constitutional: Denied any fatigue denied any fever. Cardio vascular: denied any chest pain, palpitations Gastrointestinal denied any nausea vomiting Pulmonary: Denied any shortness of breath cough Neurologic denied any new focal deficits Objective - Vital Signs Vital signs: Vital Signs Temp 98.5 F 06/06/18 05:35 Pulse 94 06/06/18 05:35 Resp 16 06/06/18 05:35 BP 116/68 06/06/18 05:35 Pulse Ox 98 06/06/18 07:15 Intake & Output 06/05/18 06/06/18 06/06/18 18:59 06:59 18:59 Intake Total 3000 Output Total 1300 Balance 1700 Intake: Oral 3000 Output: Urine 1300 Other: Voiding Method Urinal Urinal # Voids 1 2 - Exam GENERAL: The patient is alert and oriented x3, desheveled, HEENT: Pupils are round and equally reacting to light. CARDIOVASCULAR: S1 and S2 present. No murmurs, rubs, or gallops. PULMONARY: Chest is clear to auscultation, no wheezing or crackles. ABDOMEN: Soft, nontender, nondistended, normoactive bowel sounds. No palpable organomegaly. MUSCULOSKELETAL: No joint swelling or deformity. EXTREMITIES: No cyanosis, clubbing, or pedal edema. NEUROLOGICAL: Gross neurological examination did not reveal any focal deficits. SKIN: No rashes. - Labs CBC & Chem 7: 06/06/18 06:30 06/06/18 06:30 Labs: Abnormal Lab Results - Last 24 Hours (Table) 06/06/18 06/06/18 Range/Units 06:30 06:30 RBC 3.76 L (4.30-5.90) m/uL Hgb 7.5 L (13.0-17.5) gm/dL Hct 26.7 L (39.0-53.0) % MCV 71.1 L (80.0-100.0) fL MCH 20.0 L (25.0-35.0) pg MCHC 28.1 L (31.0-37.0) g/dL RDW 22.1 H (11.5-15.5) % Sodium 134 L (137-145) mmol/L BUN 7 L (9-20) mg/dL Creatinine 0.65 L (0.66-1.25) mg/dL Assessment and Plan Assessment: ASSESSMENT -Metabolic encephalopathy - secondary to severe dehydration and hyponatremia improved with IV fluids. 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 PT OT recommended subacute rehab placement for which case management social worker is on board and trying to find a place, which will probably happen on Thursday.
[2018-06-06] MEDS: PANTOPRAZOLE 40 MG/10 ML VIAL IVP SCH (13:01)
[2018-06-06] MEDS: THIAMINE 100 MG TAB PO SCH ×2 (13:02→16:31)
[2018-06-06] MEDS: MULTIVITAMINS, THERA 1 EACH TAB PO SCH (13:02)
[2018-06-06] MEDS: PANTOPRAZOLE 40 MG TABLET PO SCH (16:31)
[2018-06-07 06:02] VITALS: RESP 16
[2018-06-07] MEDS: PANTOPRAZOLE 40 MG TABLET PO SCH ×2 (07:53→16:47)
[2018-06-07] MEDS: MULTIVITAMINS, THERA 1 EACH TAB PO SCH (11:25)
[2018-06-07] MEDS: THIAMINE 100 MG TAB PO SCH ×2 (11:26→16:47)
--- NOTE | 2018-06-07 14:29 | P.PN ---
<Mallika Carty - Last Filed: 06/07/18 14:20> Subjective Progress Note Date: 06/07/18 Progress note being dictated for Dr. Wahl Interval history:70-year-old man came in extremely disheveled state, alcohol abuse altered mental status and hyponatremia which improved hyponatremia secondary to intravascular depletion and due to alcoholism. Patient was evaluated by physical therapy and will require placement to subacute rehabilitation. Also mental status is improving significantly and patient is available to provide me good history today. 06/03/2018 Patient mental status improved significantly will require subacute rehabilitation will work on discharging to subacute rehab. Patient is anemic received 1 unit of blood transfusion patient has hemodilution 3 affect because of which a patient's hemoglobin didn't go up frequently patient's hemoglobin is 7 at this time patient is asymptomatic. Patient has severe iron deficiency patient will be transfused IV iron. Patient will be discharged on oral and. 06/04/2018 no overnight events. Currently, No DTs, maintained on CIIA PROTOCOL. Social work attempting [facility]. Labs ordered and pending. 06/07/2018 improving hyponatremia and metabolic encephalopathy ,sodium 134, hemoglobin 7.5. No overnight events. Denies chest pain, palpitations or increased shortness of breath. child care worker assisting with placement. Objective - Vital Signs Vital signs: Vital Signs Temp 98.2 F 06/07/18 07:00 Pulse 76 06/07/18 07:00 Resp 16 06/07/18 07:00 BP 104/62 06/07/18 07:00 Pulse Ox 99 06/07/18 07:00 Intake & Output 06/06/18 06/07/18 06/07/18 18:59 06:59 18:59 Intake Total 2560 1120 Output Total 400 Balance 2160 1120 Intake: Oral 2560 1120 Output: Urine 400 Other: Voiding Method Urinal Toilet Toilet Urinal # Voids 2 2 - Exam GENERAL: The patient is alert and oriented x3, not in any acute distress. Thin built,desheveled, HEENT: Pupils are round and equally reacting to light. EOMI. No scleral icterus. No conjunctival pallor. Normocephalic, atraumatic. No pharyngeal erythema. No thyromegaly. CARDIOVASCULAR: S1 and S2 present. No murmurs, rubs, or gallops. PULMONARY: Chest is clear to auscultation, no wheezing or crackles. ABDOMEN: Soft, nontender, nondistended, normoactive bowel sounds. No palpable organomegaly. MUSCULOSKELETAL: No joint swelling or deformity. EXTREMITIES: No cyanosis, clubbing, or pedal edema. NEUROLOGICAL: Does have generalized weakness SKIN: No rashes. - Labs CBC & Chem 7: 06/06/18 06:30 06/06/18 06:30 Assessment and Plan Assessment: -Altered mental status secondary to severe dehydration and acute metabolic encephalopathy with hyponatremia improved with IV fluids. 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 PT/OT. Maintain gentle IV fluid hydration, CIWA protocol. child care worker assisting in discharge planning, attempting to obtain [facility] funding for placement. Further recommendations to follow. The impression and plan of care has been dictated as directed. : I performed a history and examination of this patient, discussed the same with the dictator. I agree with the dictator's note ,documented as a scribe. Any additional findings or plans will be noted. <Cele Lara - Last Filed: 06/07/18 15:14> Objective - Vital Signs Vital signs: Vital Signs Temp 98.2 F 06/07/18 07:00 Pulse 76 06/07/18 15:12 Resp 16 06/07/18 15:12 BP 104/62 06/07/18 07:00 Pulse Ox 99 06/07/18 07:00 Intake & Output 06/06/18 06/07/18 06/07/18 18:59 06:59 18:59 Intake Total 2560 1120 780 Output Total 400 400 Balance 2160 1120 380 Intake: Oral 2560 1120 780 Output: Urine 400 400 Other: Voiding Method Urinal Toilet Toilet Urinal # Voids 2 2 2 - Labs CBC & Chem 7: 06/06/18 06:30 07/08/18 06:30 Assessment and Plan Assessment: I performed a history and examination of this patient, discussed the same with the dictator. I agree with the dictator's note ,documented as a scribe. Any additional findings or plans will be noted Cele Lara
[2018-06-07] MEDS: SODIUM CHLORIDE 0.9% 1,000 ML IV SCH (16:51)
[2018-06-08] MEDS: SODIUM CHLORIDE 0.9% 1,000 ML IV SCH ×2 (05:20→14:46)
[2018-06-08] MEDS: PANTOPRAZOLE 40 MG TABLET PO SCH ×3 (07:35→18:30)
[2018-06-08 09:23] LABS: Anisocytosis Moderate; Basophils % (A) 1 %; Eosinophils # (A) 0.3 k/uL (0-0.7); Eosinophils % (A) 5 %; HCT 26.1 % (39.0-53.0); HGB 7.5 gm/dL (13.0-17.5); Hypochromasia Marked; Lymphocytes # (A) 1.3 k/uL (1.0-4.8); Lymphocytes % (A) 26 %; MCH 20.2 pg (25.0-35.0); MCHC 28.8 g/dL (31.0-37.0); MCV 70.1 fL (80.0-100.0); Mean Platelet Volume 7.1; Microcytosis Marked; Monocytes # (A) 0.5 k/uL (0-1.0); Monocytes % (A) 10 %; Neutrophils # (A) 2.8 k/uL (1.3-7.7); Neutrophils % (A) 55 %; Platelet Count 273 k/uL (150-450); Poikilocytosis Slight; RBC 3.73 m/uL (4.30-5.90); RDW 23.6 % (11.5-15.5); WBC 5.1 k/uL (3.8-10.6)
[2018-06-08 09:46] LABS: Anion Gap 12 mmol/L; Blood Urea Nitrogen 11 mg/dL (9-20); Carbon Dioxide 27 mmol/L (22-30); Chloride 96 mmol/L (98-107); Glucose 86 mg/dL (74-99); Potassium 4.7 mmol/L (3.5-5.1); Sodium 135 mmol/L (137-145)
[2018-06-08] MEDS: THIAMINE 100 MG TAB PO SCH ×2 (13:22→17:59)
[2018-06-08] MEDS: MULTIVITAMINS, THERA 1 EACH TAB PO SCH (13:22)
--- NOTE | 2018-06-08 16:11 | P.PN ---
Subjective Progress Note Date: 06/08/18 Progress note being dictated for Dr. Marcus Interval history:70-year-old man came in extremely disheveled state, alcohol abuse altered mental status and hyponatremia which improved hyponatremia secondary to intravascular depletion and due to alcoholism. Patient was evaluated by physical therapy and will require placement to subacute rehabilitation. Also mental status is improving significantly and patient is available to provide me good history today. 06/03/2018 Patient mental status improved significantly will require subacute rehabilitation will work on discharging to subacute rehab. Patient is anemic received 1 unit of blood transfusion patient has hemodilution 3 affect because of which a patient's hemoglobin didn't go up frequently patient's hemoglobin is 7 at this time patient is asymptomatic. Patient has severe iron deficiency patient will be transfused IV iron. Patient will be discharged on oral and. 06/04/2018 no overnight events. Currently, No DTs, maintained on CIOK PROTOCOL. Social work attempting to obtain assistance [facility] regarding [facility]. Labs ordered and pending. 06/07/2018 improving hyponatremia and metabolic encephalopathy ,sodium 134, hemoglobin 7.5. No overnight events. Denies chest pain, palpitations or increased shortness of breath. smokehouse worker assisting with placement. 06/08/18 no overnight events reported .T-max 99, WBC within normal limits. Good diet intake. Denies lightheadedness dizziness or focal deficits. Denies chest pain, palpitations or shortness of breath. Hemoglobin 7.5. Objective - Vital Signs Vital signs: Vital Signs Temp 98.4 F 06/08/18 14:25 Pulse 87 06/08/18 14:25 Resp 16 06/08/18 14:25 BP 105/57 06/08/18 14:25 Pulse Ox 100 06/08/18 14:25 Intake & Output 06/07/18 06/08/18 06/08/18 18:59 06:59 18:59 Intake Total 780 480 Output Total 400 Balance 380 480 Weight 52 kg Intake: Oral 780 480 Output: Urine 400 Other: Voiding Method Toilet Toilet Toilet # Voids 2 1 2 # Bowel Movements 1 - Exam GENERAL: The patient is alert and oriented x3, not in any acute distress. HEENT: Pupils are round and equally reacting to light. EOMI. No scleral icterus. No conjunctival pallor. Normocephalic, atraumatic. CARDIOVASCULAR: S1 and S2 present. No murmurs, rubs, or gallops. PULMONARY: Chest is clear to auscultation, no wheezing or crackles. ABDOMEN: Soft, nontender, nondistended, normoactive bowel sounds. No palpable organomegaly. MUSCULOSKELETAL: No joint swelling or deformity. EXTREMITIES: No cyanosis, clubbing, or pedal edema. NEUROLOGICAL: Does have generalized weakness - Labs CBC & Chem 7: 06/08/18 08:40 06/08/18 08:40 Labs: Abnormal Lab Results - Last 24 Hours (Table) 06/08/18 06/08/18 Range/Units 08:40 08:40 RBC 3.73 L (4.30-5.90) m/uL Hgb 7.5 L (13.0-17.5) gm/dL Hct 26.1 L (39.0-53.0) % MCV 70.1 L (80.0-100.0) fL MCH 20.2 L (25.0-35.0) pg MCHC 28.8 L (31.0-37.0) g/dL RDW 23.6 H (11.5-15.5) % Sodium 135 L (137-145) mmol/L Chloride 96 L (98-107) mmol/L Creatinine 0.61 L (0.66-1.25) mg/dL Assessment and Plan Assessment: -Altered mental status secondary to severe dehydration and acute metabolic encephalopathy with hyponatremia improved with IV fluids. 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 PT/OT. [place] protocol. smokehouse worker assisting in discharge planning , attempting to obtain emergency funding through legal guardian and APS. Discharge planning in progress for tomorrow. The impression and plan of care has been dictated as directed. : I performed a history and examination of this patient, discussed the same with the dictator. I agree with the dictator's note ,documented as a scribe. Any additional findings or plans will be noted.
[2018-06-08] MEDS: FERROUS SULFATE 325 MG TAB PO SCH (17:59)
[2018-06-09] MEDS: SODIUM CHLORIDE 0.9% 1,000 ML IV SCH ×2 (05:22→12:11)
[2018-06-09 07:47] LABS: Anisocytosis Moderate; Basophils % (A) 1 %; Eosinophils # (A) 0.2 k/uL (0-0.7); Eosinophils % (A) 4 %; HCT 25.4 % (39.0-53.0); HGB 7.2 gm/dL (13.0-17.5); Hypochromasia Marked; Lymphocytes # (A) 1.1 k/uL (1.0-4.8); Lymphocytes % (A) 24 %; MCH 20.1 pg (25.0-35.0); MCHC 28.4 g/dL (31.0-37.0); MCV 70.5 fL (80.0-100.0); Mean Platelet Volume 6.8; Microcytosis Marked; Monocytes # (A) 0.5 k/uL (0-1.0); Monocytes % (A) 12 %; Neutrophils # (A) 2.5 k/uL (1.3-7.7); Neutrophils % (A) 56 %; Platelet Count 273 k/uL (150-450); Poikilocytosis Slight; RDW 23.7 % (11.5-15.5); WBC 4.4 k/uL (3.8-10.6)
[2018-06-09 08:03] LABS: Anion Gap 9 mmol/L; Blood Urea Nitrogen 12 mg/dL (9-20); Calcium 8.7 mg/dL (8.4-10.2); Carbon Dioxide 28 mmol/L (22-30); Chloride 99 mmol/L (98-107); Glucose 85 mg/dL (74-99); Potassium 4.3 mmol/L (3.5-5.1); Sodium 136 mmol/L (137-145)
[2018-06-09] MEDS: FERROUS SULFATE 325 MG TAB PO SCH ×2 (09:05→17:09)
[2018-06-09] MEDS: PANTOPRAZOLE 40 MG TABLET PO SCH ×2 (09:05→17:09)
[2018-06-09] MEDS: THIAMINE 100 MG TAB PO SCH ×2 (12:12→17:09)
[2018-06-09] MEDS: MULTIVITAMINS, THERA 1 EACH TAB PO SCH (12:12)
--- NOTE | 2018-06-09 15:50 | P.DS ---
Providers Date of admission: 05/31/18 21:21 Expected date of discharge: 06/09/18 Attending physician: Agustín Marcus Primary care physician: [facility] Hospital Course: Final Diagnoses: -Altered mental status secondary to severe dehydration and acute metabolic encephalopathy with hyponatremia improved with IV fluids. 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 Patient was evaluated by physical therapy and will require placement to subacute rehabilitation. Also mental status is improving significantly and patient is available to provide me good history today. 06/03/2018 Patient mental status improved significantly will require subacute rehabilitation will work on discharging to subacute rehab. Patient is anemic received 1 unit of blood transfusion patient has hemodilution 3 affect because of which a patient's hemoglobin didn't go up frequently patient's hemoglobin is 7 at this time patient is asymptomatic. Patient has severe iron deficiency patient will be transfused IV iron. Patient will be discharged on oral and. 06/04/2018 no overnight events. Currently, No DTs, maintained on CITN PROTOCOL. Social work attempting to obtain assistance from [place] regarding subacute rehab. Labs ordered and pending. 06/07/2018 improving hyponatremia and metabolic encephalopathy ,sodium 134, hemoglobin 7.5. No overnight events. Denies chest pain, palpitations or increased shortness of breath. warehouse assembly worker assisting with placement. 06/08/18 no overnight events reported .T-max 99, WBC within normal limits. Good diet intake. Denies lightheadedness dizziness or focal deficits. Denies chest pain, palpitations or shortness of breath. Hemoglobin 7.5. warehouse assembly worker and guardian have arranged for placement at [facility]. Patient is being discharged to [facility] in a stable condition with guarded prognosis. Exam GENERAL: The patient is alert and oriented x3, not in any acute distress. CARDIOVASCULAR: S1 and S2 present. No murmurs, rubs, or gallops. PULMONARY: Chest is clear to auscultation, no wheezing or crackles. ABDOMEN: Soft, nontender, nondistended, normoactive bowel sounds. No palpable organomegaly NEUROLOGICAL: Does have generalized weakness The impression and plan of care has been dictated as directed. : I performed a history and examination of this patient, discussed the same with the dictator. I agree with the dictator's note ,documented as a scribe. Any additional findings or plans will be noted. Time taken: 35 minutes Patient Condition at Discharge: Stable Plan - Discharge Summary New Discharge Prescriptions: New Ferrous Sulfate [Feosol] 325 mg PO BID #60 tab Folic Acid-Vit B Complex-Vit C [Nephrocaps] 1 mg PO DAILY #30 capsule PARoxetine HCL [Paxil] 10 mg PO DAILY #30 tab Thiamine [Vitamin B-1] 100 mg PO DAILY #30 tablet Polyethylene Glycol 3350 [Miralax] 17 gm PO DAILY PRN #15 packet PRN Reason: Constipation Discharge Medication List Ferrous Sulfate [Feosol] 325 mg PO BID #60 tab 06/03/18 [Rx] Folic Acid-Vit B Complex-Vit C [Nephrocaps] 1 mg PO DAILY #30 capsule 06/03/18 [ Rx] PARoxetine HCL [Paxil] 10 mg PO DAILY #30 tab 06/03/18 [Rx] Polyethylene Glycol 3350 [Miralax] 17 gm PO DAILY PRN #15 packet 06/03/18 [Rx] Thiamine [Vitamin B-1] 100 mg PO DAILY #30 tablet 06/03/18 [Rx] Follow up Appointment(s)/Referral(s): Rowan Del Castillo MD [STAFF PHYSICIAN] - 3 Days Activity/Diet/Wound Care/Special Instructions: [facility] call Shadia and she will transport the pt at time of d/c. Discharge Disposition: TRANSFER TO SNF/ECF
[2018-06-09 20:49] VITALS: BP 103/52; PULSE 84; TEMP 98.5
== END 2018-06-09 21:50 | DRG 640 ==
LOC: EC 15:32 → EEVIPCON 21:21 → 6SEL 21:21 → 5MS5E 06-03 18:40
PROVIDERS: ADMIT Hospitalist; ATTEND Hospitalist
DX: E87.1 Hypo-osmolality and hyponatremia (principal); G93.41 Metabolic encephalopathy; E43 Unspecified severe protein-calorie malnutrition; F10.27 Alcohol dependence with alcohol-induced persisting dementia; Z68.1 Body mass index [BMI] 19.9 or less, adult; D50.9 Iron deficiency anemia, unspecified; E86.0 Dehydration; F17.200 Nicotine dependence, unspecified, uncomplicated; F43.10 Post-traumatic stress disorder, unspecified; I25.2 Old myocardial infarction; K70.9 Alcoholic liver disease, unspecified; Z80.1 Family history of malignant neoplasm of trachea, bronchus and lung; Z82.49 Family history of ischemic heart disease and other diseases of the circulatory system; Z82.3 Family history of stroke; F17.210 Nicotine dependence, cigarettes, uncomplicated
CPT/HCPCS: 36415; 70450; 71046; 80048; 80053; 80306; 80320; 81003; 82272; 82550; 82553; 82728; 83735; 84132; 84484; 85025; 85027; 85610; 85730; 86850; 86900; 86901; 86920; 93005; 94760; 96360; 96361; 96372; 96374; 99291

== ENCOUNTER 2019-01-12 15:23 | Inpatient (IN) | payer OTHER, MEDICARE ==
[2019-01-12 17:14] LABS: Basophils % (A) 0 %; Eosinophils # (A) 0.1 k/uL (0-0.7); Eosinophils % (A) 0 %; HCT 35.7 % (39.0-53.0); HGB 11.2 gm/dL (13.0-17.5); Lymphocytes # (A) 1.1 k/uL (1.0-4.8); Lymphocytes % (A) 6 %; MCH 27.4 pg (25.0-35.0); MCHC 31.4 g/dL (31.0-37.0); MCV 87.3 fL (80.0-100.0); Mean Platelet Volume 6.7; Monocytes # (A) 0.6 k/uL (0-1.0); Monocytes % (A) 4 %; Neutrophils # (A) 14.6 k/uL (1.3-7.7); Neutrophils % (A) 89 %; Platelet Count 553 k/uL (150-450); RBC 4.09 m/uL (4.30-5.90); RDW 14.4 % (11.5-15.5); WBC 16.4 k/uL (3.8-10.6)
[2019-01-12 17:30] LABS: ALT 25 U/L (21-72); AST 34 U/L (17-59); Albumin 3.1 g/dL (3.5-5.0); Alkaline Phosphatase 101 U/L (38-126); Amylase <30 U/L (30-110); Anion Gap 9 mmol/L; Blood Urea Nitrogen 23 mg/dL (9-20); Calcium 9.1 mg/dL (8.4-10.2); Carbon Dioxide 28 mmol/L (22-30); Chloride 99 mmol/L (98-107); Glucose 112 mg/dL (74-99); Lipase 39 U/L (23-300); Sodium 136 mmol/L (137-145); Total Bilirubin 0.5 mg/dL (0.2-1.3); Total Protein 7.1 g/dL (6.3-8.2)
--- NOTE | 2019-01-12 18:02 | ED ---
General Adult HPI - General Chief complaint: Abdominal Pain Stated complaint: Abd Pain Time Seen by Provider: 01/12/19 16:04 Source: patient, RN notes reviewed Mode of arrival: ambulatory Limitations: no limitations - History of Present Illness Initial comments: 73-year-old male with a past medical history of [place], alcoholism presents to the emergency department for a chief complaint of right lower abdominal pain. Patient states this has been ongoing for months. Patient states this may be related to his prostate as he had a high PSA but decided to have conservative management and refused surgical procedure. He states he is having some incontinence has of this. At this time patient states the pain is all in the right lower abdomen. He states sometimes there is something that protrudes outside of the abdomen. He has also lost 10 pounds in the past weeks. Patient has no other complaints at this time including shortness of breath, chest pain, nausea or vomiting, headache, or visual changes. - Related Data Home Medications Medication Instructions Recorded Confirmed Acetaminophen Tab [Tylenol Tab] 325 - 650 mg PO QID PRN 01/12/19 01/12/19 Ferrous Sulfate [Feosol] 325 mg PO DAILY@0800 01/12/19 01/12/19 Mirtazapine 30 mg PO HS@199901/12/19 01/12/19 Multivitamins, Thera [Multivitamin 1 tab PO DAILY@0801/12/19 01/12/19 (formulary)] Thiamine [Vitamin B-1] 100 mg PO DAILY@0800 01/12/19 01/12/19 Allergies Allergy/AdvReac Type Severity Reaction Status Date / Time adhesive tape Allergy Rash/Hives Verified 01/12/19 16:19 Review of Systems ROS Statement: Those systems with pertinent positive or pertinent negative responses have been documented in the HPI. ROS Other: All systems not noted in ROS Statement are negative. Past Medical History Past Medical History: Myocardial Infarction ([place]), Osteoarthritis ([place]) Additional Past Medical History / Comment(s): alcoholism Last Myocardial Infarction Date:: 1995 History of Any Multi-Drug Resistant Organisms: None Reported Past Surgical History: Orthopedic Surgery Additional Past Surgical History / Comment(s): left shoulder sx (shrapnel was in ) Past Anesthesia/Blood Transfusion Reactions: No Reported Reaction Additional Past Anesthesia/Blood Transfusion Reaction / Comment(s): no hx of transfusions Past Psychological History: No Psychological Hx Reported, PTSD Smoking Status: Current every day smoker Past Alcohol Use History: Abuse Past Drug Use History: None Reported - Past Family History Father Family Medical History: Cancer Additional Family Medical History / Comment(s): from Lung CA Mother Family Medical History: CVA/TIA, Myocardial Infarction ([place]) Additional Family Medical History / Comment(s): from [place] 04/2016 General Exam Limitations: no limitations Course Vital Signs 01/12/19 01/12/19 01/12/19 15:25 17:28 19:00 Temperature 98.4 F Pulse Rate 69 89 93 Respiratory 18 20 20 Rate Blood Pressure 118/81 106/58 108/71 O2 Sat by Pulse 98 96 100 Oximetry Medical Decision Making - Medical Decision Making 73-year-old male presents to the emergency department for a chief complaint of right abdominal pain times months. Patient states this has been worsening the past week. On exam patient does have right sided abdominal tenderness with a mass noted on the right aspect. CBC does show a white count of 16. CMP unremarkable. Urine does show some moderate trace blood. CT abdomen and pelvis is ordered which does show a complex cystic fluid collection with air in the right lateral abdomen consistent with abscess. There is also a thick- walled irregular septated mass associated with the cecum that could be a cecal tumor. There is probably tumor perforation with abscess formation. At this time blood cultures and lactic were drawn. Patient was started on Zosyn. Dr. Flores spoke with Dr. Joshua who accepted admission. - Lab Data Result diagrams: 01/12/19 16:50 01/12/19 16:50 Lab Results 01/12/19 01/12/19 01/12/19 Range/Units 16:50 16:50 18:50 WBC 16.4 H (3.8-10.6) k/uL RBC 4.09 L (4.30-5.90) m/uL Hgb 11.2 L (13.0-17.5) gm/dL Hct 35.7 L (39.0-53.0) % MCV 87.3 (80.0-100.0) fL MCH 27.4 (25.0-35.0) pg MCHC 31.4 (31.0-37.0) g/dL RDW 14.4 (11.5-15.5) % Plt Count 553 H (150-450) k/uL Neutrophils % 89 % Lymphocytes % 6 % Monocytes % 4 % Eosinophils % 0 % Basophils % 0 % Neutrophils # 14.6 H (1.3-7.7) k/uL Lymphocytes # 1.1 (1.0-4.8) k/uL Monocytes # 0.6 (0-1.0) k/uL Eosinophils # 0.1 (0-0.7) k/uL Basophils # 0.0 (0-0.2) k/uL Sodium 136 L (137-145) mmol/L Potassium 4.0 (3.5-5.1) mmol/L Chloride 99 (98-107) mmol/L Carbon Dioxide 28 (22-30) mmol/L Anion Gap 9 mmol/L BUN 23 H (9-20) mg/dL Creatinine 0.72 (0.66-1.25) mg/dL Est GFR (CKD-EPI)AfAm >90 (>60 ml/min/1.73 sqM) Est GFR (CKD-EPI)NonAf >90 (>60 ml/min/1.73 sqM) Glucose 112 H (74-99) mg/dL Calcium 9.1 (8.4-10.2) mg/dL Total Bilirubin 0.5 (0.2-1.3) mg/dL AST 34 (17-59) U/L ALT 25 (21-72) U/L Alkaline Phosphatase 101 (38-126) U/L Total Protein 7.1 (6.3-8.2) g/dL Albumin 3.1 L (3.5-5.0) g/dL Amylase <30 L (30-110) U/L Lipase 39 (23-300) U/L Urine Color Yellow Urine Appearance Clear (Clear) Urine pH 6.0 (5.0-8.0) Ur Specific [place] >1.050 H (1.001-1.035) Urine Protein 1+ H (Negative) Urine Glucose (UA) Negative (Negative) Urine Ketones 1+ H (Negative) Urine Blood Trace H (Negative) Urine Nitrite Negative (Negative) Urine Bilirubin 1+ H (Negative) Urine Urobilinogen 4.0 (<2.0) mg/dL Ur Leukocyte Esterase Negative (Negative) Urine RBC 14 H (0-5) /hpf Urine WBC 3 (0-5) /hpf Urine Mucus Moderate H (None) /hpf Disposition Clinical Impression: Leukocytosis, Cecum mass, Intra-abdominal abscess, Perforated abdominal viscus , Hematuria Disposition: ADMITTED IP TO THIS HOSP Condition: Fair Is patient prescribed a controlled substance at d/c from ED?: No Referrals: [facility],Clinic [Primary Care Provider] - 1-2 days Time of Disposition: 20:07
[2019-01-12] MEDS ORDERED: SODIUM CHLORIDE 0.9% 500 ML 500 ML IV STA (18:31)
[2019-01-12 19:07] LABS: Appearance,Urine Clear (Clear); Bilirubin,Urine 1+ (Negative); Blood,Urine Trace (Negative); Color,Urine Yellow; Glucose,Urine (UA) Negative (Negative); Ketones,Urine 1+ (Negative); Leukocyte Esterase,Urine Negative (Negative); Mucus,Urine Moderate /hpf; Nitrite,Urine Negative (Negative); Protein,Urine 1+ (Negative); RBC,Urine 14 /hpf (0-5); WBC,Urine 3 /hpf (0-5)
--- NOTE | 2019-01-12 19:09 | CT ---
EXAMINATION TYPE: CT abdomen pelvis w con DATE OF EXAM: 01/12/2019 COMPARISON: None HISTORY: RLQ pain with difficulty urinating CT DLP: 599.7 mGycm Automated exposure control for dose reduction was used. TECHNIQUE: Helical acquisition of images was performed from the lung bases through the pelvis. CONTRAST: Performed without Oral Contrast and with IV Contrast, patient injected with 100 mL of Isovue 300. FINDINGS: There is 10 mm noncalcified low-density nodule in the lingula left upper lobe. There is minimal pleur al thickening at the left posterior lung base. There is no pericardial effusion. Stomach appears normal. Liver shows no focal defect. Spleen appears normal. There is no pancreatic ma ss. There is no adrenal mass. Kidneys show satisfactory contrast opacification. There is no hydronephrosi s. Ureters are not dilated. There is no retroperitoneal adenopathy. There is 8.5 x 4.2 cm complex cystic fluid collection with fluid level in the right lateral abdomen t hat is lateral to the ascending colon. There is also a complex thick-walled septated mass in the righ t lower quadrant adjacent to the right psoas muscle and appears contiguous with the cecum. This measu res approximately 9 x 4 cm. There is mild thickening of the wall of the terminal ileum that measures up to 6 mm in thickness. I do not see evidence of a mechanical bowel obstruction. There is no sign of free air. There is no ascites. Abdominal aorta is atheromatous. Bladder distends smoothly. There is no inguinal hernia. There is no free fluid in the pelvis. IMPRESSION: COMPLEX CYSTIC FLUID COLLECTION WITH AIR IN THE RIGHT LATERAL ABDOMEN CONSISTENT WITH AN ABSCESS. THE RE IS A THICK WALLED IRREGULAR SEPTATED MASS ASSOCIATED WITH THE CECUM THAT COULD BE A CECAL TUMOR. T HERE IS PROBABLY TUMOR PERFORATION WITH ABSCESS FORMATION. SITE OF THE PERFORATION IS PROBABLY DEMONS TRATED ON IMAGE 51. Inflammatory bowel disease with intestinal perforation and abscess is also possib le. Follow-up recommended. Nonspecific noncalcified lingular nodule.
[2019-01-12 19:46] LABS: Specific Gravity,Urine >1.050 (1.001-1.035)
[2019-01-12] MEDS ORDERED: SODIUM CHLORIDE 0.9% 1,000 ML IV ONE (19:59)
[2019-01-12] MEDS ORDERED: SODIUM CHLORIDE 0.9% 1,000 ML IV STA (20:01)
[2019-01-12] MEDS ORDERED: ONDANSETRON 4 MG/2 ML VIAL IVP PRN (20:01)
[2019-01-12] MEDS ORDERED: PANTOPRAZOLE 40 MG/10 ML VIAL IVP STA (20:01)
[2019-01-12] MEDS ORDERED: ONDANSETRON 4 MG/2 ML VIAL IVP STA (20:01)
[2019-01-12] MEDS ORDERED: MORPHINE SULFATE 4 MG/ML SYRINGE IVP STA (20:01)
[2019-01-12] MEDS ORDERED: PIPERACILLIN-TAZOBACTAM 3.375 GM in SODIUM CHLORIDE 0.9% 100 ML IVPB STA (20:01)
[2019-01-13] MEDS: PIPERACILLIN-TAZOBACTAM 3.375 GM in SODIUM CHLORIDE 0.9% 100 ML IVPB SCH ×3 (03:29→20:46)
[2019-01-13] MEDS: PANTOPRAZOLE 40 MG/10 ML VIAL IVP SCH (08:38)
[2019-01-13] MEDS ORDERED: ENOXAPARIN 40 MG/0.4 ML SYRINGE SQ SCH (09:00)
[2019-01-13 09:39] LABS: INR 1.1 (<1.2); Prothrombin Time 11.8 sec (9.0-12.0)
[2019-01-13 09:52] LABS: Basophils % (A) 0 %; Eosinophils # (A) 0.1 k/uL (0-0.7); Eosinophils % (A) 0 %; HCT 28.9 % (39.0-53.0); Hypochromasia Slight; Lymphocytes # (A) 0.8 k/uL (1.0-4.8); Lymphocytes % (A) 6 %; MCH 27.7 pg (25.0-35.0); MCHC 31.5 g/dL (31.0-37.0); Mean Platelet Volume 6.4; Monocytes # (A) 0.7 k/uL (0-1.0); Monocytes % (A) 5 %; Neutrophils # (A) 12.1 k/uL (1.3-7.7); Neutrophils % (A) 88 %; Platelet Count 480 k/uL (150-450); RBC 3.28 m/uL (4.30-5.90); RDW 14.1 % (11.5-15.5); WBC 13.8 k/uL (3.8-10.6)
[2019-01-13 09:54] LABS: Anion Gap 7 mmol/L; Blood Urea Nitrogen 15 mg/dL (9-20); Calcium 8.2 mg/dL (8.4-10.2); Carbon Dioxide 24 mmol/L (22-30); Chloride 107 mmol/L (98-107); Glucose 84 mg/dL (74-99); HGB 9.1 gm/dL (13.0-17.5); Potassium 3.7 mmol/L (3.5-5.1); Sodium 138 mmol/L (137-145)
--- NOTE | 2019-01-13 13:02 | P.GSCN ---
<Genesis Garcia - Last Filed: 01/13/19 12:56> History of Present Illness Consult date: 01/13/19 Reason for Consult: abscess Requesting physician: Perry Flores History of present illness: CHIEF COMPLAINT: abdominal pain HISTORY OF PRESENT ILLNESS: 73-year-old male who presented to the emergency room with abdominal pain. General surgery was consulted for further evaluation. Patient report right lower quadrant abdominal pain for approximately two months. He reports occasional dark stools, but denies miky blood. Also reports occasional nausea and vomiting. He reports decreased appetite and approximately 40 pound weight loss over the past year. He denies previous cancer history. Reports his father of lung CA. He denies previous colonoscopy. Patient reports he is a current cigarette smoker. History of alcohol abuse. REVIEW OF SYSTEMS: CONSTITUTIONAL: Denies fever or chills. HEENT: Denies blurred vision, vision changes, or eye pain. Denies hemoptysis ENDOCRINE: Denies heat or cold intolerance. CARDIOVASCULAR: Denies chest pain or pressure. RESPIRATORY: No shortness of breath. GASTROINTESTINAL: Reports abdominal pain. Reports occasional nausea. NEURO: Denies history of seizures. PSYCH: No depression or suicidal ideation HEMATOLOGIC: Denies bleeding disorders. LYMPHATIC: The patient denies any lumps and bumps around the neck. GENITOURINARY: Denies any blood in urine or increased urinary frequency. MUSCULOSKELETAL: Denies myalgias. Denies joint swelling. Denies decreased range of motion beyond patients baseline. SKIN: Denies pruitis. Denies rash. PHYSICAL EXAM: VITAL SIGNS: Currently stable. GENERAL: Well-developed, thin male, in no acute distress. HEENT: No sclera icterus. Extraocular movements grossly intact. Moist buccal mucosa. Head is atraumatic, normocephalic. Hears conversational speech. No nasal drainage. NECK: Supple without lymphadenopathy. CHEST: Non-labored respirations and equal bilateral excursions. CARDIOVASCULAR: Regular rate with regular rhythm. Palpable 2+ radial pulses. ABDOMEN: Soft. Nondistended. Palpable mass to right lower quadrant. MUSCULOSKELETAL: No clubbing, cyanosis or edema. NEUROLOGIC: No focal or lateralizing signs. Cranial nerves II through XII grossly intact. PSYCH: Appropriate affect. Alert and oriented to person, place and time. SKIN: Well perfused. Good skin turgor. IMAGING: CT abdomen and pelvis reveals complex cystic fluid collection with air in the right lateral abdomen consistent with abscess. There is a thick-walled irregular septated mass associated with the cecum that could be a cecal tumor. There is probably tumor perforation with abscess formation. ASSESSMENT: 1. 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 Leukocytosis PLAN: 1. NPO 2. Continue antibiotics. Dr. Mendez on consult. 3. Patient will tentatively be scheduled for surgery tomorrow with Dr. Joshua. Nurse practitioner note has been reviewed by physician. Signing provider agrees with the documented findings, assessment, and plan of care. Past Medical History Past Medical History: Myocardial Infarction ([place]), Osteoarthritis ([place]) Additional Past Medical History / Comment(s): alcoholism Last Myocardial Infarction Date:: 1995 History of Any Multi-Drug Resistant Organisms: None Reported Past Surgical History: Orthopedic Surgery Additional Past Surgical History / Comment(s): left shoulder sx (shrapnel was in ) Past Anesthesia/Blood Transfusion Reactions: No Reported Reaction Additional Past Anesthesia/Blood Transfusion Reaction / Comm: no hx of transfusions Past Psychological History: No Psychological Hx Reported, PTSD Smoking Status: Current every day smoker Past Alcohol Use History: Abuse Past Drug Use History: None Reported - Past Family History Father Family Medical History: Cancer Additional Family Medical History / Comment(s): from Lung [place] Mother Family Medical History: CVA/TIA, Myocardial Infarction ([place]) Additional Family Medical History / Comment(s): from [place] 04/2016 Medications and Allergies Home Medications Medication Instructions Recorded Confirmed Type Acetaminophen Tab [Tylenol Tab] 325 - 650 mg PO QID PRN 01/12/19 01/12/19 History Ferrous Sulfate [Feosol] 325 mg PO DAILY@79901/12/19 01/12/19 History Mirtazapine 30 mg PO HS@199901/12/19 01/12/19 History Multivitamins, Thera [Multivitamin 1 tab PO DAILY@79901/12/19 01/12/19 History (formulary)] Thiamine [Vitamin B-1] 100 mg PO DAILY@0800 01/12/19 01/12/19 History Allergies Allergy/AdvReac Type Severity Reaction Status Date / Time adhesive tape Allergy Rash/Hives Verified 01/12/19 16:19 Surgical - Exam Vital Signs Temp Pulse Resp BP Pulse Ox 98.4 F 69 18 118/81 98 01/12/19 15:25 01/12/19 15:25 01/12/19 15:25 01/12/19 15:25 01/12/19 15:25 Results - Labs 01/13/19 08:47 01/13/19 08:47 Abnormal Lab Results - Last 24 Hours (Table) 01/12/19 01/12/19 01/12/19 Range/Units 16:50 16:50 18:50 WBC 16.4 H (3.8-10.6) k/uL RBC 4.09 L (4.30-5.90) m/uL Hgb 11.2 L (13.0-17.5) gm/dL Hct 35.7 L (39.0-53.0) % Plt Count 553 H (150-450) k/uL Neutrophils # 14.6 H (1.3-7.7) k/uL Lymphocytes # (1.0-4.8) k/uL Sodium 136 L (137-145) mmol/L BUN 23 H (9-20) mg/dL Creatinine (0.66-1.25) mg/dL Glucose 112 H (74-99) mg/dL Calcium (8.4-10.2) mg/dL Albumin 3.1 L (3.5-5.0) g/dL Amylase <30 L (30-110) U/L Ur Specific [place] >1.050 H (1.001-1.035) Urine Protein 1+ H (Negative) Urine Ketones 1+ H (Negative) Urine Blood Trace H (Negative) Urine Bilirubin 1+ H (Negative) Urine RBC 14 H (0-5) /hpf Urine Mucus Moderate H (None) /hpf 01/13/19 01/13/19 Range/Units 08:47 08:47 WBC 13.8 H (3.8-10.6) k/uL RBC 3.28 L (4.30-5.90) m/uL Hgb 9.1 L D (13.0-17.5) gm/dL Hct 28.9 L (39.0-53.0) % Plt Count 480 H (150-450) k/uL Neutrophils # 12.1 H (1.3-7.7) k/uL Lymphocytes # 0.8 L (1.0-4.8) k/uL Sodium (137-145) mmol/L BUN (9-20) mg/dL Creatinine 0.61 L (0.66-1.25) mg/dL Glucose (74-99) mg/dL Calcium 8.2 L (8.4-10.2) mg/dL Albumin (3.5-5.0) g/dL Amylase (30-110) U/L Ur Specific [place] (1.001-1.035) Urine Protein (Negative) Urine Ketones (Negative) Urine Blood (Negative) Urine Bilirubin (Negative) Urine RBC (0-5) /hpf Urine Mucus (None) /hpf Diabetes panel 01/12/19 01/13/19 Range/Units 16:50 08:47 Sodium 136 L 138 (137-145) mmol/L Potassium 4.0 3.7 (3.5-5.1) mmol/L Chloride 99 107 (98-107) mmol/L Carbon Dioxide 28 24 (22-30) mmol/L BUN 23 H 15 (9-20) mg/dL Creatinine 0.72 0.61 L (0.66-1.25) mg/dL Glucose 112 H 84 (74-99) mg/dL Calcium 9.1 8.2 L (8.4-10.2) mg/dL AST 34 (17-59) U/L ALT 25 (21-72) U/L Alkaline Phosphatase 101 (38-126) U/L Total Protein 7.1 (6.3-8.2) g/dL Albumin 3.1 L (3.5-5.0) g/dL Calcium panel 01/12/19 01/13/19 Range/Units 16:50 08:47 Calcium 9.1 8.2 L (8.4-10.2) mg/dL Albumin 3.1 L (3.5-5.0) g/dL Pituitary panel 01/12/19 01/13/19 Range/Units 16:50 08:47 Sodium 136 L 138 (137-145) mmol/L Potassium 4.0 3.7 (3.5-5.1) mmol/L Chloride 99 107 (98-107) mmol/L Carbon Dioxide 28 24 (22-30) mmol/L BUN 23 H 15 (9-20) mg/dL Creatinine 0.72 0.61 L (0.66-1.25) mg/dL Glucose 112 H 84 (74-99) mg/dL Calcium 9.1 8.2 L (8.4-10.2) mg/dL Adrenal panel 01/12/19 01/13/19 Range/Units 16:50 08:47 Sodium 136 L 138 (137-145) mmol/L Potassium 4.0 3.7 (3.5-5.1) mmol/L Chloride 99 107 (98-107) mmol/L Carbon Dioxide 28 24 (22-30) mmol/L BUN 23 H 15 (9-20) mg/dL Creatinine 0.72 0.61 L (0.66-1.25) mg/dL Glucose 112 H 84 (74-99) mg/dL Calcium 9.1 8.2 L (8.4-10.2) mg/dL Total Bilirubin 0.5 (0.2-1.3) mg/dL AST 34 (17-59) U/L ALT 25 (21-72) U/L Alkaline Phosphatase 101 (38-126) U/L Total Protein 7.1 (6.3-8.2) g/dL Albumin 3.1 L (3.5-5.0) g/dL <Ezequiel Joshua - Last Filed: 01/13/19 17:46> History of Present Illness History of present illness: As above. Patient with impressive CAT scan showing masslike region of the cecum with adjacent abscess. Agree with impression of perforated malignancy. Ureter appears to be away from the majority of the inflammatory changes. No hydronephrosis seen. At this point would advise primary surgical evaluation and anticipated right colectomy. This was discussed with the patient in detail. I also reached out to the patient's guardian Henna and left a message with her. We'll touch base with her preoperatively. Today's hemoglobin did drop somewhat. We'll recheck tomorrow. Type and screen will be obtained. Continue IV antibiotics. Interestingly the patient's CEA level is normal. Surgical - Exam Vital Signs Temp Pulse Resp BP Pulse Ox 98.4 F 69 18 118/81 98 01/12/19 15:25 01/12/19 15:25 01/12/19 15:25 01/12/19 15:25 01/12/19 15:25 Results - Labs 01/13/19 08:47 01/13/19 08:47 Abnormal Lab Results - Last 24 Hours (Table) 01/12/19 01/13/19 01/13/19 Range/Units 18:50 08:47 08:47 WBC 13.8 H (3.8-10.6) k/uL RBC 3.28 L (4.30-5.90) m/uL Hgb 9.1 L D (13.0-17.5) gm/dL Hct 28.9 L (39.0-53.0) % Plt Count 480 H (150-450) k/uL Neutrophils # 12.1 H (1.3-7.7) k/uL Lymphocytes # 0.8 L (1.0-4.8) k/uL Creatinine 0.61 L (0.66-1.25) mg/dL Calcium 8.2 L (8.4-10.2) mg/dL Ur Specific [place] >1.050 H (1.001-1.035) Urine Protein 1+ H (Negative) Urine Ketones 1+ H (Negative) Urine Blood Trace H (Negative) Urine Bilirubin 1+ H (Negative) Urine RBC 14 H (0-5) /hpf Urine Mucus Moderate H (None) /hpf Diabetes panel 01/13/19 Range/Units 08:47 Sodium 138 (137-145) mmol/L Potassium 3.7 (3.5-5.1) mmol/L Chloride 107 (98-107) mmol/L Carbon Dioxide 24 (22-30) mmol/L BUN 15 (9-20) mg/dL Creatinine 0.61 L (0.66-1.25) mg/dL Glucose 84 (74-99) mg/dL Calcium 8.2 L (8.4-10.2) mg/dL Calcium panel 01/13/19 Range/Units 08:47 Calcium 8.2 L (8.4-10.2) mg/dL Pituitary panel 01/13/19 Range/Units 08:47 Sodium 138 (137-145) mmol/L Potassium 3.7 (3.5-5.1) mmol/L Chloride 107 (98-107) mmol/L Carbon Dioxide 24 (22-30) mmol/L BUN 15 (9-20) mg/dL Creatinine 0.61 L (0.66-1.25) mg/dL Glucose 84 (74-99) mg/dL Calcium 8.2 L (8.4-10.2) mg/dL Adrenal panel 01/13/19 Range/Units 08:47 Sodium 138 (137-145) mmol/L Potassium 3.7 (3.5-5.1) mmol/L Chloride 107 (98-107) mmol/L Carbon Dioxide 24 (22-30) mmol/L BUN 15 (9-20) mg/dL Creatinine 0.61 L (0.66-1.25) mg/dL Glucose 84 (74-99) mg/dL Calcium 8.2 L (8.4-10.2) mg/dL
[2019-01-13] MEDS: SODIUM CHLORIDE 0.9% 1,000 ML IV SCH (13:43)
--- NOTE | 2019-01-13 19:59 | P.HPIM ---
History of Present Illness this is pleasant 73 yo M with pmh of hypertension and coronary artery disease who presents with worsening abdominal pain over two months duration , the pain is in the right lower quadrant , radiating to the surrounding abdominal area and around the umbilicus, non specific in character , quite sever as per pt associated with tenderness but no change in urine or bowel habits. no chest pain of dyspnea. no fever, his bp is on low normal side, but pt deneis dizziness. he has mild leukocytosis at 13.8K, Hb 9.1 and elevated platelets. normal lytes , creatinine and liver enz. on exam he has significant abd tenderness. CT of the abd showing cecal tumor with sorrouding abscess. pt has been evaluated by surgical team and the plan for surgical intervention next day . pt is started on zosyn . Review of Systems CONSTITUTIONAL: No fever, no malaise, no fatigue. HEENT: No recent visual problems or hearing problems. Denied any sore throat. CARDIOVASCULAR: No orthopnea, PND, no palpitations, no syncope. PULMONARY: No shortness of breath, no cough, no hemoptysis. GASTROINTESTINAL: No diarrhea, no nausea, no vomiting, no abdominal pain. Normoactive bowel sounds. NEUROLOGICAL: No headaches, no weakness, no numbness. HEMATOLOGICAL: Denies any bleeding or petechiae. GENITOURINARY: Denies any burning micturition, frequency, or urgency. MUSCULOSKELETAL/RHEUMATOLOGICAL: Denies any joint pain, swelling, or any muscle pain. ENDOCRINE: Denies any polyuria or polydipsia. Past Medical History Past Medical History: Myocardial Infarction (NM), Osteoarthritis (OA) Additional Past Medical History / Comment(s): alcoholism Last Myocardial Infarction Date:: 1995 History of Any Multi-Drug Resistant Organisms: None Reported Past Surgical History: Orthopedic Surgery Additional Past Surgical History / Comment(s): left shoulder sx (shrapnel was in ) Past Anesthesia/Blood Transfusion Reactions: No Reported Reaction Additional Past Anesthesia/Blood Transfusion Reaction / Comment(s): no hx of transfusions Past Psychological History: No Psychological Hx Reported, PTSD Smoking Status: Current every day smoker Past Alcohol Use History: Abuse Past Drug Use History: None Reported - Past Family History Father Family Medical History: Cancer Additional Family Medical History / Comment(s): from Lung CA Mother Family Medical History: CVA/TIA, Myocardial Infarction (NM) Additional Family Medical History / Comment(s): from [place] 04/2016 Medications and Allergies Home Medications Medication Instructions Recorded Confirmed Type Acetaminophen Tab [Tylenol Tab] 325 - 650 mg PO QID PRN 01/12/19 01/12/19 History Ferrous Sulfate [Feosol] 325 mg PO DAILY@0800 01/12/19 01/12/19 History Mirtazapine 30 mg PO HS@199901/12/19 01/12/19 History Multivitamins, Thera [Multivitamin 1 tab PO DAILY@0801/12/19 01/12/19 History (formulary)] Thiamine [Vitamin B-1] 100 mg PO DAILY@0800 01/12/19 01/12/19 History Allergies Allergy/AdvReac Type Severity Reaction Status Date / Time adhesive tape Allergy Rash/Hives Verified 01/12/19 16:19 Physical Exam Vitals: Vital Signs Temp Pulse Pulse Pulse Resp BP BP 01/13/19 15:00 98.3 F 81 15 110/60 01/13/19 07:46 98.6 F 91 16 98/50 01/13/19 01:16 98.9 F 78 16 99/60 01/13/19 00:00 98.6 F 99 89 16 130/72 01/12/19 20:55 99.0 F 86 20 102/62 01/12/19 20:15 89 20 107/60 Pulse Ox 01/13/19 15:00 96 01/13/19 07:46 98 01/13/19 01:16 93 L 01/13/19 00:00 01/12/19 20:55 97 01/12/19 20:15 96 Intake and Output 01/13/19 01/13/19 01/13/19 06:59 14:59 22:59 Intake Total 1299 Balance 1299 Intake: Intake, IV Titration 1299 Amount Sodium Chloride 0.9% 1, 300 000 ml @ 100 mls/hr IV . Q10H ONE Rx#:[id number] Sodium Chloride 0.9% 1, 999 000 ml @ 999 mls/hr IV . Q1H1M [facility] Rx#:[id number] Other: Voiding Method Toilet # Voids 1 2 Weight 58.967 kg GENERAL: The patient is alert and oriented x3, not in any acute distress. Well developed, well nourished. HEENT: Pupils are round and equally reacting to light. EOMI. No scleral icterus. No conjunctival pallor. Normocephalic, atraumatic. No pharyngeal erythema. No thyromegaly. CARDIOVASCULAR: S1 and S2 present. No murmurs, rubs, or gallops. PULMONARY: Chest is clear to auscultation, no wheezing or crackles. -ABDOMEN: Soft, RLQ severe tendernes, nondistended, normoactive bowel sounds. No palpable organomegaly. MUSCULOSKELETAL: No joint swelling or deformity. EXTREMITIES: No cyanosis, clubbing, or pedal edema. NEUROLOGICAL: Gross neurological examination did not reveal any focal deficits. SKIN: No rashes. Results CBC & Chem 7: 01/13/19 08:47 01/13/19 08:47 Labs: Abnormal Lab Results - Last 24 Hours (Table) 01/12/19 01/13/19 01/13/19 Range/Units 18:50 08:47 08:47 WBC 13.8 H (3.8-10.6) k/uL RBC 3.28 L (4.30-5.90) m/uL Hgb 9.1 L D (13.0-17.5) gm/dL Hct 28.9 L (39.0-53.0) % Plt Count 480 H (150-450) k/uL Neutrophils # 12.1 H (1.3-7.7) k/uL Lymphocytes # 0.8 L (1.0-4.8) k/uL Creatinine 0.61 L (0.66-1.25) mg/dL Calcium 8.2 L (8.4-10.2) mg/dL Ur Specific [place] >1.050 H (1.001-1.035) Thrombosis Risk Factor Assmnt - Choose All That Apply Any of the Below Risk Factors Present?: No Other Risk Factors: Yes Each Risk Factor Represents 2 Points: Age 61-74 years Other congenital or acquired thrombophilia - If yes, enter type in comment: No Thrombosis Risk Factor Assessment Total Risk Factor Score: 2 Thrombosis Risk Factor Assessment Level: Low Risk Assessment and Plan Assessment: cecal mass suspicous for cancer RLQ abdominal abscess, mostly related to the above h/o coronoary artery disease essential HTN. Plan: this is a pleasant 73 yo M who presents with abd mass and abscess, continue with anibiotic , and iv fluids, and pain managment , surgical consult is appreciated and plan for surgical intervention , ID team has been consulted as well Labs and medication were reviewed.. Continue same treatment. Continue with symptomatic treatment. Resume home medication. Monitor lytes and vitals. DVT and GI prophylaxis. Further recommendations of the clinical course of the patient DVT prophylaxis: Subcutaneous heparin GI Prophylaxis: Pepcid PT/OT: Pending Prognosis is guarded
[2019-01-14] MEDS: SODIUM CHLORIDE 0.9% 1,000 ML IV SCH ×2 (05:32→19:04)
[2019-01-14] MEDS: PIPERACILLIN-TAZOBACTAM 3.375 GM in SODIUM CHLORIDE 0.9% 100 ML IVPB SCH ×3 (05:33→22:41)
[2019-01-14 07:43] LABS: Basophils % (A) 0 %; Eosinophils % (A) 0 %; HCT 29.6 % (39.0-53.0); Hypochromasia Marked; Lymphocytes # (A) 0.8 k/uL (1.0-4.8); Lymphocytes % (A) 6 %; MCH 27.3 pg (25.0-35.0); MCHC 30.4 g/dL (31.0-37.0); MCV 89.8 fL (80.0-100.0); Mean Platelet Volume 6.1; Monocytes # (A) 0.6 k/uL (0-1.0); Monocytes % (A) 4 %; Neutrophils # (A) 12.3 k/uL (1.3-7.7); Neutrophils % (A) 88 %; Platelet Count 479 k/uL (150-450); WBC 13.9 k/uL (3.8-10.6)
[2019-01-14 08:02] LABS: Anion Gap 12 mmol/L; Blood Urea Nitrogen 11 mg/dL (9-20); Calcium 8.3 mg/dL (8.4-10.2); Carbon Dioxide 19 mmol/L (22-30); Chloride 110 mmol/L (98-107); Glucose 69 mg/dL (74-99); Potassium 3.6 mmol/L (3.5-5.1); Sodium 141 mmol/L (137-145)
--- NOTE | 2019-01-14 08:54 | CONS ---
CONSULTATION DATE OF SERVICE: 01/13/2019. REASON FOR CONSULTATION: Abdominal abscess. HISTORY OF PRESENT ILLNESS: The patient is a 73 male presenting to the ER at [facility] yesterday afternoon with chief complaints of abdominal pain in the right lower quadrant. The pain has been going on for months. The patient describes the pain to be more of a dull, aching to sharp at times almost 6 to 7/10, and no radiation. Patient complained of nausea, but no vomiting. Denies having any diarrhea or any constipation. The patient did have some chills but denies any high-grade fever. With these symptoms the patient was evaluated by the ER physician. On arrival to the ER, the patient was afebrile. The patient white count was elevated at 16.4. The patient did have a CT of the abdomen and pelvis completed which shows 8.5-4.2 cm complex cystic fluid collection in the right lateral abdomen lateral to descending colon with concern for possible sacral perforation and abscess. The patient was started on Zosyn and admitted to the hospital. Infectious Disease was consulted for further recommendation regarding antibiotic therapy. REVIEW OF SYSTEMS: Positive points have been mentioned in HPI. Rest of the system has been negative. PAST MEDICAL HISTORY: WI, osteoarthritis. PAST SURGICAL HISTORY: Left shoulder surgery. SOCIAL HISTORY: Current everyday smoker. Does have history of heavy alcohol use. No drug use. FAMILY HISTORY: Father had who from it. Mother history of CVA, TIA and WI. ALLERGIES: No known drug allergies. MEDICATION: Include the patient is currently on Zosyn 3.375 g q.8 hours. He is on Protonix, Zofran, morphine sulfate, heparin. PHYSICAL EXAMINATION: Blood pressure is 103/60 with a pulse of 71, temperature 99.7, he is 97% on room air. General description is an elderly male up in the chair in no distress. No tachypnea or accessory muscles of respiration use. HEENT: Shows pallor. No scleral icterus. Oral mucosal membranes are dry. No pharyngeal erythema or thrush. Neck: Trachea central. No thyromegaly. Lungs unlabored breathing. Clear to auscultation anteriorly. No wheeze or crackles. Heart S1, S2. Regular rate and rhythm. ABDOMEN: Soft, mild distended and tender right lower quadrant area. No guarding or rigidity. No organomegaly. EXTREMITIES: No edema of the feet. Skin examination: No rash or mass palpable. NEUROLOGICAL: Patient is awake, alert, oriented times three. Mood and affect normal. LABS: Hemoglobin 9.1, white count 13.8 with a BUN of 15, creatinine 0.61. CT report as mentioned above. DIAGNOSTIC IMPRESSION AND PLAN: Patient with abdominal abscess with concern for possible perforated cecum and a sacral mass the likely organism that will need to be covered will be enteric gram-negative both aerobes and anaerobes in this patient who has not been on antibiotic in the recent past, could be sensitive pathogen. PLAN: 1. The patient will be continued on Zosyn 3.375 q.8 hours. 2. We will request for aerobic and anaerobic coverage at the time of surgery tomorrow that should guide further antibiotic therapy. 3. We will follow up on his clinical condition and culture to further adjust medication if needed. Thank you for this consultation. Will follow this patient with you. MMADRIENNE / IJN: [id number] /
[2019-01-14] MEDS: PANTOPRAZOLE 40 MG/10 ML VIAL IVP SCH (08:59)
[2019-01-14] MEDS: MORPHINE SULFATE 4 MG/ML SYRINGE IVP PRN (09:00)
--- NOTE | 2019-01-14 11:57 | P.PN ---
Subjective this is pleasant 73 yo M with pmh of hypertension and coronary artery disease who presents with worsening abdominal pain over two months duration , the pain is in the right lower quadrant , radiating to the surrounding abdominal area and around the umbilicus, non specific in character , quite sever as per pt associated with tenderness but no change in urine or bowel habits. no chest pain of dyspnea. no fever, his bp is on low normal side, but pt deneis dizziness. he has mild leukocytosis at 13.8K, Hb 9.1 and elevated platelets. normal lytes , creatinine and liver enz. on exam he has significant abd tenderness. CT of the abd showing cecal tumor with sorrouding abscess. pt has been evaluated by surgical team and the plan for surgical intervention next day . pt is started on zosyn . 03/14/2019 Patient was lying in bed not in distress, is fully awake and alert and oriented. Still have right lower quadrant abdominal pain and tenderness. He has no nausea vomiting, is nothing by mouth now. On IV fluids 75 mg/h. Also undertaken Zosyn for her abdominal abscess. No fever. Vitas looks stable. Lap showing WBC 13.9 K, hemoglobin 9.0, platelets 479. And BMP was unremarkable. Patient is planned to have surgery today for surgical team following the patient closely Review of systems CONSTITUTIONAL: No fever, no malaise, no fatigue. HEENT: No recent visual problems or hearing problems. Denied any sore throat. CARDIOVASCULAR: No orthopnea, PND, no palpitations, no syncope. PULMONARY: No shortness of breath, no cough, no hemoptysis. GASTROINTESTINAL: Normoactive bowel sounds. NEUROLOGICAL: No headaches, no weakness, no numbness. HEMATOLOGICAL: Denies any bleeding or petechiae. GENITOURINARY: Denies any burning micturition, frequency, or urgency. MUSCULOSKELETAL/RHEUMATOLOGICAL: Denies any joint pain, swelling, or any muscle pain. ENDOCRINE: Denies any polyuria or polydipsia. Medication: Sodium chloride, morphine, Zofran, Zosyn, Protonix, normal saline and heparin Objective - Vital Signs Vital signs: Vital Signs Temp 98.1 F 01/14/19 08:30 Pulse 94 01/14/19 08:30 Resp 16 01/14/19 08:30 BP 118/74 01/14/19 08:30 Pulse Ox 96 01/14/19 08:30 Intake & Output 01/13/19 01/14/19 01/14/19 18:59 06:59 18:59 Intake Total 900 Balance 900 Weight 58.967 kg Intake: Intake, IV Titration 900 Amount Piperacillin-Tazobactam 3 100 .375 gm In Sodium Chloride 0.9% 100 ml @ 25 mls/hr IVPB Q8H [facility] Rx#: [id number] Sodium Chloride 0.9% 1, 800 000 ml @ 100 mls/hr IV . Q10H ONE Rx#:[id number] Other: Voiding Method Toilet Toilet # Voids 2 1 1 - Exam GENERAL: The patient is alert and oriented x3, not in any acute distress. Well developed, well nourished. HEENT: Pupils are round and equally reacting to light. EOMI. No scleral icterus. No conjunctival pallor. Normocephalic, atraumatic. No pharyngeal erythema. No thyromegaly. CARDIOVASCULAR: S1 and S2 present. No murmurs, rubs, or gallops. PULMONARY: Chest is clear to auscultation, no wheezing or crackles. -ABDOMEN: Soft, RLQ severe tendernes, nondistended, normoactive bowel sounds. No palpable organomegaly. MUSCULOSKELETAL: No joint swelling or deformity. EXTREMITIES: No cyanosis, clubbing, or pedal edema. NEUROLOGICAL: Gross neurological examination did not reveal any focal deficits. SKIN: No rashes. - Labs CBC & Chem 7: 01/14/19 07:17 01/14/19 07:17 Labs: Abnormal Lab Results - Last 24 Hours (Table) 01/14/19 01/14/19 Range/Units 07:17 07:17 WBC 13.9 H (3.8-10.6) k/uL RBC 3.30 L (4.30-5.90) m/uL Hgb 9.0 L (13.0-17.5) gm/dL Hct 29.6 L (39.0-53.0) % MCHC 30.4 L (31.0-37.0) g/dL Plt Count 479 H (150-450) k/uL Neutrophils # 12.3 H (1.3-7.7) k/uL Lymphocytes # 0.8 L (1.0-4.8) k/uL Chloride 110 H (98-107) mmol/L Carbon Dioxide 19 L (22-30) mmol/L Creatinine 0.64 L (0.66-1.25) mg/dL Glucose 69 L (74-99) mg/dL Calcium 8.3 L (8.4-10.2) mg/dL Microbiology - Last 24 Hours (Table) 01/12/19 21:50 Blood Culture - Preliminary Blood No Growth after 24 hours Assessment and Plan Assessment: cecal mass suspicous for cancer RLQ abdominal abscess, mostly related to the above h/o coronoary artery disease essential HTN. Plan: this is a pleasant 73 yo M who presents with abd mass and abscess, continue with anibiotic , and iv fluids, and pain managment , surgical consult is appreciated and plan for surgical intervention , ID team has been consulted as well Labs and medication were reviewed.. Continue same treatment. Continue with symptomatic treatment. Resume home medication. Monitor lytes and vitals. DVT and GI prophylaxis. Further recommendations of the clinical course of the patient DVT prophylaxis: Subcutaneous heparin GI Prophylaxis: protonix Prognosis is guarded
--- NOTE | 2019-01-14 13:06 | P.PN ---
Progress Note - Text Progress Note Date: 01/14/19 Spoke to the patient's public guardian twice today. She apparently has been in contact with the patient's daughter. They are agreeable to proceeding with surgery with the associated risks documented yesterday. They are acceptable to the need for transfusion if necessary. Apparently he had some documentation stating that he was full code but no long-term intubation. They are agreeable to the patient being placed on the ventilator for the surgical procedure and for the short-term postoperatively. They are not interested in long-term ventilatory care. Full CODE STATUS will be resumed with clarification.
[2019-01-14] MEDS ORDERED: IV FLUID CONTINUATION 1,000 ML IV ONE (13:09)
[2019-01-14] MEDS ORDERED: fentaNYL (PF) 50 MCG/ML 2 ML AMP IV ONE (13:35)
[2019-01-14] MEDS ORDERED: ONDANSETRON 4 MG/2 ML VIAL IVP PRN (13:53)
[2019-01-14] MEDS ORDERED: NALOXONE 0.4 MG/ML 1 ML VIAL IV PRN (13:53)
[2019-01-14] MEDS ORDERED: diphenhydrAMINE 50 MG/ML 1 ML VIAL IVP PRN (13:53)
[2019-01-14] MEDS: HEPARIN SODIUM,PORCINE 5,000 UNIT/ML 1 ML VIAL SQ SCH (13:58)
[2019-01-14] MEDS ORDERED: ONDANSETRON 4 MG/2 ML VIAL IVP ONE (13:58)
[2019-01-14] MEDS ORDERED: PHENYLEPHRINE-0.9% NACL SYG 1 MG/10 ML SYRINGE ONE (14:03)
[2019-01-14] MEDS ORDERED: LIDOCAINE 1% INJ 10MG/ML (20 ML MDV) ONE (14:03)
[2019-01-14] MEDS ORDERED: HYDROmorphone (PF) 1 MG/ML ONE (14:03)
[2019-01-14] MEDS ORDERED: PROPOFOL 10 MG/ML 20 ML VIAL IV ONE (14:03)
[2019-01-14] MEDS ORDERED: NEOSTIGMINE 1 MG/ML 10 ML VIAL ONE (14:03)
[2019-01-14] MEDS ORDERED: GLYCOPYRROLATE 0.2 MG/ML 2 ML VIAL ONE (14:03)
[2019-01-14] MEDS ORDERED: ROCURONIUM BROMIDE 10 MG/ML 10 ML VIAL IV ONE (14:03)
[2019-01-14] MEDS ORDERED: ceFAZolin 1,000 MG VIAL IVPB ONE (14:25)
[2019-01-14] MEDS ORDERED: LACTATED RINGERS 1,000 ML IV ONE ×2 (14:58→15:50)
--- NOTE | 2019-01-14 16:06 | P.OP ---
Date of Procedure: 01/14/19 Procedure(s) Performed: PREOPERATIVE DIAGNOSIS: Perforated right-sided colon cancer POSTOPERATIVE DIAGNOSIS: Same with abdominal wall abscess PROCEDURE: Exploratory laparotomy with drainage abdominal wall abscess and right colectomy SURGEON: Josiane EBL: 150 mL ANESTHESIA: General COMPLICATIONS: None OPERATIVE PROCEDURE: Patient placed in the operative table in the supine position. The patient was placed under general anesthesia. The abdomen was prepped and draped in usual sterile fashion. Under anesthesia the patient's right-sided mass was quite large. A midline incision was made using a scalpel. Entrance into the para-cavity occurred using electrocautery. The patient's mass was adherent between the ascending colon and the lateral abdominal wall. The liver small bowel and remainder of the colon appeared normal by palpation. The tumor was removed from the right lateral abdominal wall using blunt dissection and cautery. A defect in the muscular layers measuring 1.5 cm was identified. Purulent fluid was noted to be present within this large abdominal wall abscess. This was fully evacuated and cultures were taken. Further mobilization of the bowel took place bringing the colon medially. The cecum and hepatic flexure along with the ascending colon were fully mobilized. The duodenum and ureter were identified and preserved throughout the case. Once I had adequate mobilization the bowel was divided in the distal ileum using a linear 75 stapler. The mid transverse colon was divided in a similar fashion. The mesentery was divided using the LigaSure device and 0 silk ties for larger vessels. Irrigation took place at that point. Following that a [id number] anastomosis took place. The antimesenteric portion of the staple line was removed. A linear stapler was fired along the antimesenteric borders. There may defect was closed transversely using a TX 60 device. A 3-0 GI silk crotch stitch was placed. The TX 60 stapler line was indicated using 3-0 GI silk sutures. Further irrigation took place. No bleeding was seen. I placed a drain into the perineal cavity through the abdominal wall where the abscess was present. This came in through the right upper lateral abdominal wall into the abscess cavity into the perineal cavity and then I have the catheter laying against the right gutter into the right retrohepatic region. This was sutured in place using a 3-0 silk stitch. Abdominal musculature was reapproximated using 2 separate double-stranded #1 PDS sutures. Skin was closed using dilma. Sterile dressings were applied. DISPOSITION: Stable to recovery room
[2019-01-14] MEDS ORDERED: ALBUTEROL NEBULIZED 1.25 MG/3 ML INHALATION ONE (16:18)
[2019-01-14] MEDS ORDERED: NALOXONE 0.4 MG/ML 1 ML VIAL IV ONE (16:20)
[2019-01-14] MEDS: ROPIVACAINE 250 MG, HYDROMORPHONE (PF) 5 MG in SODIUM CHLORIDE 0.9% 200 ML EPIDURAL PRN ×2 (16:24→17:31)
[2019-01-14 16:25] LABS: Glucose,Whole Blood 104 mg/dL (75-99)
[2019-01-14] MEDS ORDERED: ETOMIDATE 2 MG/ML 10 ML VIAL IVP ONE (16:25)
[2019-01-14] MEDS ORDERED: LORazepam 2 MG/ML INJ IV ONE ×2 (16:34→17:20)
--- NOTE | 2019-01-14 16:46 | XR ---
EXAMINATION TYPE: XR chest 1V portable DATE OF EXAM: 01/14/2019 COMPARISON: 05/31/2018 INDICATION: Postintubation difficulty breathing TECHNIQUE: Single frontal view of the chest is obtained. FINDINGS: The heart size is normal. The pulmonary vasculature is normal. The lungs are clear. Endotracheal tube tip is 6.7 cm above the dagoberto. EKG leads overlie lateral chest. IMPRESSION: 1. No acute pulmonary process. 2. Endotracheal tube placement with tip above the dagoberto.
[2019-01-14 17:22] LABS: ABG Base Excess -10.5 mmol/L; ABG HCO3 18 mmol/L (21-25); ABG Oxygen Saturation 99.2 % (94-97); ABG PCO2 47 mmHg (35-45); ABG PO2 243 mmHg (83-108); ABG TCO2 19 mmol/L (19-24)
[2019-01-14 17:26] LABS: ABG PH 7.19 (7.35-7.45)
[2019-01-14] MEDS ORDERED: PROPOFOL 1,000 MG in EMPTY BAG 1 BAG IV SCH (17:45)
[2019-01-14] MEDS ORDERED: SODIUM BICARB 8.4% 50 ML VIAL (1 MEQ/ML) IV STA (17:58)
[2019-01-14] MEDS: DEXTROSE 5% IN WATER 1,000 ML with SODIUM BICARB (1 MEQ/ML) 150 ML IV SCH (18:26)
[2019-01-14 18:29] LABS: Glucose,Whole Blood 91 mg/dL (75-99)
--- NOTE | 2019-01-14 18:39 | P.CNPUL ---
History of Present Illness Consult date: 01/14/19 Requesting physician: Ezequiel Joshua Reason for consult: other (Postoperative hypoxic respiratory failure, failure to wean post surgery.) Chief complaint: Abdominal pain History of present illness: This is a 73-year-old white male presented to the ER on 01/12/2019, complaining of right lower quadrant abdominal pain. Apparently his pain has been chronic and going on for a few months. Patient also complained of a 10 pound weight loss over the last few weeks, and he had no other complaints. Patient had no headache no blurred vision no dizziness. No nausea no vomiting, no bilateral hematemesis, he is known to have history of elevated PSA and possibly underlying prostate cancer. At any rate patient was seen by many physicians since admission,. He was seen by surgery on consultation and he was admitted to internal medicine. His other medical problems included hypertension, coronary artery disease, previous SC, degenerative joint disease, CT of the abdomen on presentation showed a cecal tumor with surrounding abscess. He was started on Zosyn, and surgery was performed today. Patient underwent exploratory laparotomy, drainage of abdominal wall abscess right colectomy. Patient was found to have perforated right sided colon cancer and abdominal wall abscess. After the surgery, patient was extubated for a brief period of time in the recovery room, however he was noted to have increased shortness of breath, and struggling to breathe on his own. Patient was reintubated by anesthesia, and waited for made for the patient be transferred to the ICU, and I was called about this consultation. Presently the patient is in the ICU on mechanical ventilation. His assist-control rate is 20 he started volume is 450 he is on a PEEP of 5 and FiO2 of 50%. ABG from earlier today showed a pO2 of 243 pCO2 of 47 pH of 7.19. Hence the patient was given bicarb and he was placed on a bicarb drip, I also recommended increasing his assist-control rate from 16-20. The rest of the labs were reviewed, he had a bit of leukocytosis with WBC count of 13.9 hemoglobin was 9. I's and basic metabolic profile were relatively unremarkable. Review of Systems ROS unobtainable: due to endotracheal tube Past Medical History Past Medical History: Myocardial Infarction (SC), Osteoarthritis (OA) Additional Past Medical History / Comment(s): alcoholism Last Myocardial Infarction Date:: 1995 History of Any Multi-Drug Resistant Organisms: None Reported Past Surgical History: Orthopedic Surgery Additional Past Surgical History / Comment(s): left shoulder sx (shrapnel was in ) Past Anesthesia/Blood Transfusion Reactions: No Reported Reaction Additional Past Anesthesia/Blood Transfusion Reaction / Comment(s): no hx of transfusions Past Psychological History: No Psychological Hx Reported, PTSD Smoking Status: Current every day smoker Past Alcohol Use History: Abuse Past Drug Use History: None Reported - Past Family History Father Family Medical History: Cancer Additional Family Medical History / Comment(s): from Lung CA Mother Family Medical History: CVA/TIA, Myocardial Infarction (SC) Additional Family Medical History / Comment(s): from SC 04/2016 Medications and Allergies Home Medications Medication Instructions Recorded Confirmed Type Acetaminophen Tab [Tylenol Tab] 325 - 650 mg PO QID PRN 01/12/19 01/12/19 History Ferrous Sulfate [Feosol] 325 mg PO DAILY@0800 01/12/19 01/12/19 History Mirtazapine 30 mg PO HS@199901/12/19 01/12/19 History Multivitamins, Thera [Multivitamin 1 tab PO DAILY@0800 01/12/19 01/12/19 History (formulary)] Thiamine [Vitamin B-1] 100 mg PO DAILY@0800 01/12/19 01/12/19 History Allergies Allergy/AdvReac Type Severity Reaction Status Date / Time adhesive tape Allergy Rash/Hives Verified 01/12/19 16:19 Physical Exam Vitals: Vital Signs Temp Pulse Pulse Resp BP Pulse Ox 01/14/19 17:57 87 18 98/76 100 01/14/19 17:40 91 23 100/67 100 01/14/19 17:20 88 18 99/56 100 01/14/19 17:00 97.4 F L 88 18 100/89 100 01/14/19 16:10 97.4 F L 74 12 116/82 77 L 01/14/19 13:09 73 16 114/59 99 01/14/19 08:30 98.1 F 94 16 118/74 96 01/14/19 07:00 98.0 F 88 15 113/70 95 01/14/19 00:27 99.0 F 76 16 110/62 96 01/14/19 00:10 16 01/13/19 20:05 71 16 01/13/19 19:00 99.7 F H 71 16 103/60 97 Intake and Output 01/14/19 01/14/19 01/14/19 06:59 14:59 22:59 Intake Total 1400 455.4 Output Total 365 Balance 1400 90.4 Intake: IV 1400 455.4 Output: Urine 215 Estimated Blood Loss 150 Other: # Voids 1 1 Physical Exam: Revealed a 73-year-old, cachectic looking, frail, chronically ill , on mechanical ventilation, Head: Atraumatic, normocephalic, however frail looking. HEENT:[Neck is supple.] [No neck masses.] [No thyromegaly.] [No JVD.] Pupils are pinpoint, no icterus. Chest: [Normal fine crackles at the bases, diminished breath sounds throughout, no rhonchi and no wheezes, symmetrical chest expansion. Cardiac Exam: [Normal S1 and S2, no S3 gallop, no murmur.] Abdomen: [Postsurgical, Soft, nontender, no megaly, no rebound, no guarding, no bowel sounds Extremities: [No clubbing, no edema, no cyanosis.] Good pulses noted bilaterally. In upper and lower extremities. Neurological Exam: Cannot be assessed, patient is sedated Psychiatric: Could not be assessed, patient is sedated, chest or arrived to the ICU from surgery. Skin: No rashes. Lymphatics: No lymphadenopathy Results - Laboratory Findings CBC and BMP: 01/14/19 07:17 01/14/19 07:17 ABG ABG pH 7.19 (7.35-7.45) L* 01/14/19 17:17 ABG pCO2 47 mmHg (35-45) H 01/14/19 17:17 ABG pO2 243 mmHg (83-108) H 01/14/19 17:17 ABG O2 Saturation 99.2 % (94-97) H 01/14/19 17:17 PT/INR, D-dimer PT 11.8 sec (9.0-12.0) 01/13/19 08:47 INR 1.1 (<1.2) 01/13/19 08:47 Abnormal lab findings: Abnormal Labs 01/12/19 01/12/19 01/12/19 16:50 16:50 18:50 WBC 16.4 H RBC 4.09 L Hgb 11.2 L Hct 35.7 L MCHC Plt Count 553 H Neutrophils # 14.6 H Lymphocytes # ABG pH ABG pCO2 ABG pO2 ABG HCO3 ABG O2 Saturation Sodium 136 L Chloride Carbon Dioxide BUN 23 H Creatinine Glucose 112 H POC Glucose (mg/dL) Calcium Albumin 3.1 L Amylase <30 L Ur Specific Ar[place] >1.050 H Urine Protein 1+ H Urine Ketones 1+ H Urine Blood Trace H Urine Bilirubin 1+ H Urine RBC 14 H Urine Mucus Moderate H 01/13/19 01/13/19 01/14/19 08:47 08:47 07:17 WBC 13.8 H 13.9 H RBC 3.28 L 3.30 L Hgb 9.1 L D 9.0 L Hct 28.9 L 29.6 L MCHC 30.4 L Plt Count 480 H 479 H Neutrophils # 12.1 H 12.3 H Lymphocytes # 0.8 L 0.8 L ABG pH ABG pCO2 ABG pO2 ABG HCO3 ABG O2 Saturation Sodium Chloride Carbon Dioxide BUN Creatinine 0.61 L Glucose POC Glucose (mg/dL) Calcium 8.2 L Albumin Amylase Ur Specific [place] Urine Protein Urine Ketones Urine Blood Urine Bilirubin Urine RBC Urine Mucus 01/14/19 01/14/19 01/14/19 07:17 16:21 17:17 WBC RBC Hgb Hct MCHC Plt Count Neutrophils # Lymphocytes # ABG pH 7.19 L* ABG pCO2 47 H ABG pO2 243 H ABG HCO3 18 L ABG O2 Saturation 99.2 H Sodium Chloride 110 H Carbon Dioxide 19 L BUN Creatinine 0.64 L Glucose 69 L POC Glucose (mg/dL) 104 H Calcium 8.3 L Albumin Amylase Ur Specific Ar[place] Urine Protein Urine Ketones Urine Blood Urine Bilirubin Urine RBC Urine Mucus - Diagnostic Findings Chest x-ray: image reviewed (Chest x-ray was reviewed no evidence of acute pulmonary process, endotracheal tube was noted 6.7 cm above the dagoberto and this was advanced.) Assessment and Plan Assessment: Impression: 1 status post exploratory laparotomy with drainage of abdominal wall abscess and right colectomy, postoperative day #0 2 perforated right sided colon cancer 3 abdominal wall abscess 4 acute abdominal sepsis and acute metabolic acidosis secondary to sepsis, doubt ischemic bowel. 5 history of underlying coronary artery disease presently stable 6 benign essential hypertension presently under control. 7 failure to wean him mechanical ventilation requiring reintubation post surgery most likely secondary to severe metabolic acidosis and sepsis, and suspect underlying COPD. Recommendation: Continue ventilatory support, antibiotics, hemodynamic support with fluids and pressors if needed, bronchodilators, GI and DVT prophylaxis, address nutritional support in the next 24 hours, antibiotics as per infectious disease on the case. Considering the profound metabolic acidosis noted, patient was given sodium bicarb twice and started on sodium bicarb drip. That will be addressed again depending on the next ABG in a.m. Prognosis is definitely guarded, patient is critically ill we'll continue to follow. Time with Patient: Greater than 30
[2019-01-14] MEDS: IPRATROPIUM-ALBUTEROL 3 ML NEB INHALATION SCH (19:27)
[2019-01-14] MEDS: CHLORHEXIDINE GLUCONATE 15 ML CUP MUCOUS MEM SCH (20:31)
[2019-01-14 20:54] LABS: Magnesium 1.8 mg/dL (1.6-2.3); Potassium 3.8 mmol/L (3.5-5.1)
[2019-01-14] MEDS ORDERED: SODIUM CHLORIDE 0.9% 1,000 ML IV ONE (21:51)
--- NOTE | 2019-01-14 22:03 | XR ---
EXAMINATION TYPE: XR chest 1V portable DATE OF EXAM: 01/14/2019 COMPARISON: Today HISTORY: Intubation TECHNIQUE: Single frontal view of the chest is obtained. FINDINGS: Endotracheal tube is 6 cm from the dagoberto. Nasogastric tube is noted with the tip probably looped in the stomach. There is blunting of left costophrenic angle. There is no heart failure. Hear t size is normal. There are chest leads. IMPRESSION: Mild infiltrate left lower lobe is increased compared to exam earlier today at 4:30 PM. No heart failure.
[2019-01-14] MEDS: DEXTROSE 5%-0.45% NACL 1,000 ML IV SCH (22:41)
[2019-01-14 23:59] LABS: Glucose,Whole Blood 110 mg/dL (75-99)
[2019-01-15] MEDS ORDERED: Potassium Replacement Protocol 1 EACH MISC MISCELLANE PRN (00:04)
[2019-01-15] MEDS: POTASSIUM CHLORIDE 10 MEQ in WATER FOR INJECTION 1 100ML.BAG IVPB SCH ×3 (00:29→21:01)
[2019-01-15] MEDS ORDERED: SODIUM CHLORIDE 0.9% 1,000 ML IV ONE ×2 (01:16→02:07)
[2019-01-15] MEDS: NOREPINEPHRINE 4 MG in SODIUM CHLORIDE 0.9% 250 ML IV SCH (04:25)
[2019-01-15] MEDS: PIPERACILLIN-TAZOBACTAM 3.375 GM in SODIUM CHLORIDE 0.9% 100 ML IVPB SCH ×3 (04:48→20:37)
[2019-01-15 05:11] LABS: Basophils % (A) 0 %; Eosinophils % (A) 0 %; HCT 26.7 % (39.0-53.0); HGB 8.5 gm/dL (13.0-17.5); Hypochromasia Moderate; Lymphocytes % (A) 8 %; MCH 27.7 pg (25.0-35.0); MCHC 31.7 g/dL (31.0-37.0); MCV 87.5 fL (80.0-100.0); Mean Platelet Volume 6.1; Monocytes # (A) 0.6 k/uL (0-1.0); Monocytes % (A) 4 %; Neutrophils # (A) 11.1 k/uL (1.3-7.7); Neutrophils % (A) 87 %; Platelet Count 418 k/uL (150-450); RBC 3.05 m/uL (4.30-5.90); RDW 14.1 % (11.5-15.5); WBC 12.8 k/uL (3.8-10.6)
[2019-01-15 05:24] LABS: Anion Gap 7 mmol/L; Blood Urea Nitrogen 12 mg/dL (9-20); Calcium 7.4 mg/dL (8.4-10.2); Carbon Dioxide 23 mmol/L (22-30); Chloride 110 mmol/L (98-107); Glucose 123 mg/dL (74-99); Magnesium 1.6 mg/dL (1.6-2.3); Phosphorus 3.1 mg/dL (2.5-4.5); Potassium 3.7 mmol/L (3.5-5.1); Sodium 140 mmol/L (137-145)
[2019-01-15] MEDS ORDERED: Magnesium Replacement Protocol 1 EACH MISC MISCELLANE PRN (05:43)
[2019-01-15] MEDS: MAGNESIUM SULFATE-D5W PMX 1 GM in DEXTROSE/WATER 1 100ML.BAG IVPB SCH ×2 (06:02→07:05)
[2019-01-15] MEDS: IPRATROPIUM-ALBUTEROL 3 ML NEB INHALATION SCH ×4 (07:38→19:37)
--- NOTE | 2019-01-15 07:41 | XR ---
EXAMINATION TYPE: XR chest 1V portable DATE OF EXAM: 01/15/2019 COMPARISON: 01/14/2019 HISTORY: SOB, Follow Up FINDINGS: Indwelling tubes and catheters are unchanged. No change in bibasilar opacities. Stable appearance of the cardio-mediastinal structures at this time. Pleural effusion unchanged. IMPRESSION: 1. Stable portable chest. Clinical correlation and follow up until resolution is recommended.
--- NOTE | 2019-01-15 08:09 | PN ---
PROGRESS NOTE DATE OF SERVICE: 01/14/2019. REASON FOR FOLLOWUP: Abdominal abscess. INTERVAL HISTORY: The patient is afebrile. The patient was taken to the OR. The patient is status post drainage of the abscess and right hemicolectomy because of the perforated right colon tumor. The patient subsequently has been admitted to ICU. Prior to surgery the patient was afebrile, breathing comfortably. No nausea, vomiting or diarrhea. PHYSICAL EXAMINATION: Blood pressure 86/57 with pulse 90, temperature 98. He is 90% on O2. General description is an elderly male lying in bed in no distress. RESPIRATORY SYSTEM: Unlabored breathing. Clear to auscultation anteriorly. HEART: S1, S2. Regular rate and rhythm. ABDOMEN: Soft, no tenderness EXTREMITIES: No edema of the feet. LABS: Hemoglobin 9 with white count 13.9, BUN of 11, creatinine 0.64. DIAGNOSTIC IMPRESSION AND PLAN: Patient with abdominal abscess from ruptured right-sided colon tumor. The patient is status post right hemicolectomy and drainage of the abscess. Will follow the cultures. Keep the patient on the Zosyn. Continue supportive care. MMODL / IJN: [id number] /
[2019-01-15 08:51] LABS: ABG Base Excess 4.3 mmol/L; ABG HCO3 29 mmol/L (21-25); ABG Oxygen Saturation 98.8 % (94-97); ABG PCO2 44 mmHg (35-45); ABG PH 7.42 (7.35-7.45); ABG PO2 162 mmHg (83-108); ABG TCO2 30 mmol/L (19-24)
--- NOTE | 2019-01-15 09:56 | P.PN ---
Progress Note - Text Progress Note Date: 01/15/19 69-year-old male status post exploratory laparotomy with right colectomy. Postop day #1, epidural catheter day #2. Patient had a complicated postoperative course had to be reintubated secondary to respiratory distress area currently epidural still running at 5 ML's an hour, patient remains intubated does not appear to respond to adult low palpation. Moves extremities equally. Continue epidural settings per ICU, as patient is requiring low-dose is a we'll felt for hemodynamic support, I recommended decreasing the epidural catheter to 2-3 ML's an hour.
[2019-01-15] MEDS: DEXTROSE 5% IN WATER 1,000 ML with SODIUM BICARB (1 MEQ/ML) 150 ML IV SCH (10:59)
[2019-01-15] MEDS: PANTOPRAZOLE 40 MG/10 ML VIAL IVP SCH (11:12)
[2019-01-15] MEDS: CHLORHEXIDINE GLUCONATE 15 ML CUP MUCOUS MEM SCH ×2 (11:12→21:01)
[2019-01-15 12:03] LABS: ABG Base Excess 4.6 mmol/L; ABG HCO3 29 mmol/L (21-25); ABG Oxygen Saturation 99.1 % (94-97); ABG PCO2 41 mmHg (35-45); ABG PH 7.45 (7.35-7.45); ABG PO2 167 mmHg (83-108); ABG TCO2 30 mmol/L (19-24)
[2019-01-15] MEDS: DEXTROSE 5%-0.45% NACL 1,000 ML IV SCH (13:08)
--- NOTE | 2019-01-15 13:30 | P.PN ---
Subjective Progress Note Date: 01/15/19 Principal diagnosis: acute abdominal sepsis, status post exploratory laparotomy, drainage of abdominal abscess and right colectomy. Perforated cecal tumor. This is a 73-year-old white male presented to the ER on 01/12/2019, complaining of right lower quadrant abdominal pain. Apparently his pain has been chronic and going on for a few months. Patient also complained of a 10 pound weight loss over the last few weeks, and he had no other complaints. Patient had no headache no blurred vision no dizziness. No nausea no vomiting, no bilateral hematemesis, he is known to have history of elevated PSA and possibly underlying prostate cancer. At any rate patient was seen by many physicians since admission,. He was seen by surgery on consultation and he was admitted to internal medicine. His other medical problems included hypertension, coronary artery disease, previous [place], degenerative joint disease, CT of the abdomen on presentation showed a cecal tumor with surrounding abscess. He was started on Zosyn, and surgery was performed today. Patient underwent exploratory laparotomy, drainage of abdominal wall abscess right colectomy. Patient was found to have perforated right sided colon cancer and abdominal wall abscess. After the surgery, patient was extubated for a brief period of time in the recovery room, however he was noted to have increased shortness of breath, and struggling to breathe on his own. Patient was reintubated by anesthesia, and waited for made for the patient be transferred to the ICU, and I was called about this consultation. Presently the patient is in the ICU on mechanical ventilation. His assist-control rate is 20 he started volume is 450 he is on a PEEP of 5 and FiO2 of 50%. ABG from earlier today showed a pO2 of 243 pCO2 of 47 pH of 7.19. Hence the patient was given bicarb and he was placed on a bicarb drip, I also recommended increasing his assist-control rate from 16-20. The rest of the labs were reviewed, he had a bit of leukocytosis with WBC count of 13.9 hemoglobin was 9. I's and basic metabolic profile were relatively unremarkable. Patient was reevaluated today on 01/15/2019, I saw him yesterday on consultation after he came back from the operating room. Patient remains on mechanical ventilation, and his ventilator settings where basically unchanged since last night.patient remains on sodium bicarb drip which I have discontinued today after reviewing the ABG. ABG this morning showed a pO2 of 162 pCO2 of 44 pH of 7.42 and this was on 50% FiO2. His CBC showed the PEEP cigar of 12.8 hemoglobin is 8.5.basic metabolic profile was noted to be normal. Chest x- rayshowed a small tiny left pleural effusion, not large enough to consider thoracentesis, felt to be reactive pleural effusion from abdominal sepsis and surgery.urine output remains marginal patient did receive over 3 L of fluids last night, and he was placed on norepinephrine presently at 10 mcg/ m.recommended 20 mg of Lasix to be given at the same time I recommended that we start waking up the patient, discontinue propofol, and I will definitely give the patient a weaning trial. I actually did, and patient was eventually placed on a pressure support of 8 and CPAP, follow-up ABG was excellent, and then I recommended extubating the patient to a nasal cannula. CPAP ABG showed a pO2 of 167 pCO2 of 41 pH of 7.45. And he was now on 40% FiO2. Objective - Vital Signs Vital signs: Vital Signs Temp 98.2 F 01/15/19 12:00 Pulse 84 01/15/19 12:30 Resp 14 01/15/19 12:30 BP 112/51 01/15/19 12:30 Pulse Ox 99 01/15/19 12:30 Intake & Output 01/14/19 01/15/19 01/15/19 18:59 06:59 18:59 Intake Total 1925.4 4840.643 865.630 Output Total 365 433 160 Balance 1560.4 4407.643 705.630 Weight 67.2 kg Intake: IV 1925.4 4760 800 Dextrose 5% in Water 1, 70 840 280 000 ml @ 70 mls/hr IV . [id number] [facility] with Sodium Bicarb (1 Meq/ml) 150 ml Rx#:[id number] Dextrose 5%-0.45% NaCl 1, 420 420 000 ml @ 70 mls/hr IV . [id number] [facility] Rx#:[id number] Magnesium Sulfate-D5w Pmx 100 100 1 gm In Dextrose/Water 1 100ml.bag @ 100 mls/hr IVPB Q1H [facility] Rx#: [id number] Piperacillin-Tazobactam 3 200 .375 gm In Sodium Chloride 0.9% 100 ml @ 25 mls/hr IVPB Q8H [facility] Rx#: [id number] Potassium Chloride 10 meq 200 In Water For Injection 1 100ml.bag @ 100 mls/hr IVPB Q1H [facility] Rx#: [id number] Sodium Chloride 0.9% 1, 3000 000 ml @ 999 mls/hr IV . Q1H1M [facility] Rx#:[id number] Intake, IV Titration 0 80.643 65.630 Amount Norepinephrine 4 mg In 20.965 32.947 Sodium Chloride 0.9% 250 ml @ 0.05 MCG/KG/MIN 11. 23 mls/hr IV .[id number] [facility] Rx#:[id number] Propofol 1,000 mg In 0 59.678 32.683 Empty Bag 1 bag @ Titrate IV .Q0M [facility] Rx#: [id number] Output: Drainage 130 0 Right Abdomen 130 0 Urine 215 303 160 Estimated Blood Loss 150 Other: Voiding Method Indwelling Catheter Indwelling Catheter # Voids 1 - Exam Physical Exam: Revealed a 73-year-old, cachectic looking, frail, chronically ill , on mechanical ventilation,remains on propofol which I will discontinue Head: Atraumatic, normocephalic, however frail looking. HEENT:[Neck is supple.] [No neck masses.] [No thyromegaly.] [No JVD.] Pupils are pinpoint, no icterus. Chest: [Normal fine crackles at the bases, diminished breath sounds throughout, no rhonchi and no wheezes, symmetrical chest expansion. Cardiac Exam: [Normal S1 and S2, no S3 gallop, no murmur.] Abdomen: [Postsurgical, Soft, nontender, no megaly, no rebound, no guarding, no bowel sounds Extremities: [No clubbing, no edema, no cyanosis.] Good pulses noted bilaterally. In upper and lower extremities. Neurological Exam: Cannot be assessed, patient is sedated Psychiatric: Could not be assessed, patient is sedated, chest or arrived to the ICU from surgery. Skin: No rashes. Lymphatics: No lymphadenopathy - Labs CBC & Chem 7: 01/15/19 04:44 01/15/19 07:25 Labs: Abnormal Lab Results - Last 24 Hours (Table) 01/14/19 01/14/19 01/14/19 Range/Units 16:21 17:17 23:47 WBC (3.8-10.6) k/uL RBC (4.30-5.90) m/uL Hgb (13.0-17.5) gm/dL Hct (39.0-53.0) % Neutrophils # (1.3-7.7) k/uL ABG pH 7.19 L* (7.35-7.45) ABG pCO2 47 H (35-45) mmHg ABG pO2 243 H (83-108) mmHg ABG HCO3 18 L (21-25) mmol/L ABG Total CO2 (19-24) mmol/L ABG O2 Saturation 99.2 H (94-97) % Chloride (98-107) mmol/L Creatinine (0.66-1.25) mg/dL Glucose (74-99) mg/dL POC Glucose (mg/dL) 104 H 110 H (75-99) mg/dL Calcium (8.4-10.2) mg/dL 01/15/19 01/15/19 01/15/19 Range/Units 04:44 04:44 08:48 WBC 12.8 H (3.8-10.6) k/uL RBC 3.05 L (4.30-5.90) m/uL Hgb 8.5 L (13.0-17.5) gm/dL Hct 26.7 L (39.0-53.0) % Neutrophils # 11.1 H (1.3-7.7) k/uL ABG pH (7.35-7.45) ABG pCO2 (35-45) mmHg ABG pO2 162 H (83-108) mmHg ABG HCO3 29 H (21-25) mmol/L ABG Total CO2 30 H (19-24) mmol/L ABG O2 Saturation 98.8 H (94-97) % Chloride 110 H (98-107) mmol/L Creatinine 0.53 L (0.66-1.25) mg/dL Glucose 123 H (74-99) mg/dL POC Glucose (mg/dL) (75-99) mg/dL Calcium 7.4 L (8.4-10.2) mg/dL 01/15/19 Range/Units 12:00 WBC (3.8-10.6) k/uL RBC (4.30-5.90) m/uL Hgb (13.0-17.5) gm/dL Hct (39.0-53.0) % Neutrophils # (1.3-7.7) k/uL ABG pH (7.35-7.45) ABG pCO2 (35-45) mmHg ABG pO2 167 H (83-108) mmHg ABG HCO3 29 H (21-25) mmol/L ABG Total CO2 30 H (19-24) mmol/L ABG O2 Saturation 99.1 H (94-97) % Chloride (98-107) mmol/L Creatinine (0.66-1.25) mg/dL Glucose (74-99) mg/dL POC Glucose (mg/dL) (75-99) mg/dL Calcium (8.4-10.2) mg/dL Microbiology - Last 24 Hours (Table) 01/14/19 15:42 Gram Stain - Preliminary Buttock Wound Culture - Preliminary 01/12/19 21:50 Blood Culture - Preliminary Blood No Growth after 48 hours 01/14/19 15:42 Anaerobic Culture - Preliminary Buttock Assessment and Plan Assessment: Impression: 1 status post exploratory laparotomy with drainage of abdominal wall abscess and right colectomy, postoperative day #1 2 perforated right sided colon cancer 3 abdominal wall abscess 4 acute abdominal sepsis and acute metabolic acidosis secondary to sepsis, doubt ischemic bowel. 5 history of underlying coronary artery disease presently stable 6 benign essential hypertension presently under control. 7 failure to wean him mechanical ventilation requiring reintubation post surgery most likely secondary to severe metabolic acidosis and sepsis, and suspect underlying COPD.and this is expected. Recommendation: continue antibiotics, discontinue propofol, place patient when he is awake on pressure support and CPAP, and if tolerated proceed to extubating the patient. In the meantime continue to titrate norepinephrine, continue antibiotics for the abdominal sepsis, continue bronchodilators, continue GI and DVT prophylaxis, patient will likely be weaned and extubated today, and we'll continue to monitor in the ICU. Critical care time is 35 minutes. Time with Patient: Greater than 30
--- NOTE | 2019-01-15 18:12 | P.PN ---
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 He is in the ICU. He has been successfully extubated. Pain is controlled. He is currently on Levothroid. PHYSICAL EXAM: VITAL SIGNS: Reviewed GENERAL: Well-developed male in no acute distress HEENT: No sclera icterus. Extraocular movements grossly intact. Head is atraumatic, normocephalic. NECK: Supple without lymphadenopathy CHEST: Nonlabored respirations. Equal bilateral excursions CARDIOVASCULAR: Palpable 2+ radial pulses. Regular rate and rhythm ABDOMEN: Dressing intact. Nondistended. No peritonitis. MUSCULOSKELETAL: No clubbing cyanosis. NEUROLOGIC: Cranial nerves 2-12 grossly intact. No focal or lateralizing signs. PSYCH: Appropriate affect. Alert and oriented to person place and time. SKIN: Well perfused. Good skin turgor. : Urine is clear and yellow. LABS: Reviewed ASSESSMENT: 1. s/p colectomy for perforated cancer PLAN: 1. Recommend IV fluid hydration 2. Continue IV antibiotics 3. May have ice chips. Objective - Vital Signs Vital signs: Vital Signs Temp 98.4 F 01/15/19 16:00 Pulse 93 01/15/19 16:00 Resp 13 01/15/19 16:00 BP 100/61 01/15/19 16:00 Pulse Ox 95 01/15/19 16:00 Intake & Output 01/14/19 01/15/19 01/15/19 18:59 06:59 18:59 Intake Total 1925.4 4840.643 1245.630 Output Total 365 433 315 Balance 1560.4 4407.643 930.630 Weight 67.2 kg Intake: IV 1925.4 4760 1180 Dextrose 5% in Water 1, 70 840 280 000 ml @ 70 mls/hr IV . [id number] [facility] with Sodium Bicarb (1 Meq/ml) 150 ml Rx#:[id number] Dextrose 5%-0.45% NaCl 1, 420 700 000 ml @ 70 mls/hr IV . [id number] [facility] Rx#:[id number] Magnesium Sulfate-D5w Pmx 100 100 1 gm In Dextrose/Water 1 100ml.bag @ 100 mls/hr IVPB Q1H [facility] Rx#: [id number] Piperacillin-Tazobactam 3 200 100 .375 gm In Sodium Chloride 0.9% 100 ml @ 25 mls/hr IVPB Q8H [facility] Rx#: [id number] Potassium Chloride 10 meq 200 In Water For Injection 1 100ml.bag @ 100 mls/hr IVPB Q1H [facility] Rx#: [id number] Sodium Chloride 0.9% 1, 3000 000 ml @ 999 mls/hr IV . Q1H1M [facility] Rx#:[id number] Intake, IV Titration 0 80.643 65.630 Amount Norepinephrine 4 mg In 20.965 32.947 Sodium Chloride 0.9% 250 ml @ 0.05 MCG/KG/MIN 11. 23 mls/hr IV .[id number] [facility] Rx#:[id number] Propofol 1,000 mg In 0 59.678 32.683 Empty Bag 1 bag @ Titrate IV .Q0M [facility] Rx#: [id number] Output: Drainage 130 40 Right Abdomen 130 40 Urine 215 303 275 Estimated Blood Loss 150 Other: Voiding Method Indwelling Catheter Indwelling Catheter # Voids 1 - Labs CBC & Chem 7: 01/15/19 04:44 01/15/19 07:25 Labs: Abnormal Lab Results - Last 24 Hours (Table) 01/14/19 01/15/19 01/15/19 Range/Units 23:47 04:44 04:44 WBC 12.8 H (3.8-10.6) k/uL RBC 3.05 L (4.30-5.90) m/uL Hgb 8.5 L (13.0-17.5) gm/dL Hct 26.7 L (39.0-53.0) % Neutrophils # 11.1 H (1.3-7.7) k/uL ABG pO2 (83-108) mmHg ABG HCO3 (21-25) mmol/L ABG Total CO2 (19-24) mmol/L ABG O2 Saturation (94-97) % Chloride 110 H (98-107) mmol/L Creatinine 0.53 L (0.66-1.25) mg/dL Glucose 123 H (74-99) mg/dL POC Glucose (mg/dL) 110 H (75-99) mg/dL Calcium 7.4 L (8.4-10.2) mg/dL 01/15/19 01/15/19 Range/Units 08:48 12:00 WBC (3.8-10.6) k/uL RBC (4.30-5.90) m/uL Hgb (13.0-17.5) gm/dL Hct (39.0-53.0) % Neutrophils # (1.3-7.7) k/uL ABG pO2 162 H 167 H (83-108) mmHg ABG HCO3 29 H 29 H (21-25) mmol/L ABG Total CO2 30 H 30 H (19-24) mmol/L ABG O2 Saturation 98.8 H 99.1 H (94-97) % Chloride (98-107) mmol/L Creatinine (0.66-1.25) mg/dL Glucose (74-99) mg/dL POC Glucose (mg/dL) (75-99) mg/dL Calcium (8.4-10.2) mg/dL Microbiology - Last 24 Hours (Table) 01/15/19 08:40 Urine Culture - Preliminary Urine,Catheterized 01/14/19 15:42 Gram Stain - Preliminary Buttock Wound Culture - Preliminary 01/12/19 21:50 Blood Culture - Preliminary Blood No Growth after 48 hours 01/14/19 15:42 Anaerobic Culture - Preliminary Buttock Assessment and Plan (1) Cecal cancer Current Visit: Yes Status: Acute Code(s): C18.0 - MALIGNANT NEOPLASM OF CECUM SNOMED Code(s): 898017396 (2) Cecum mass Current Visit: Yes Status: Acute Code(s): K63.9 - DISEASE OF INTESTINE, UNSPECIFIED SNOMED Code(s): 669198920 (3) Intra-abdominal abscess Current Visit: Yes Status: Acute Code(s): K65.1 - PERITONEAL ABSCESS SNOMED Code(s): 07852168 (4) Perforated abdominal viscus Current Visit: Yes Status: Acute Code(s): URL4032 - SNOMED Code(s): 320332361
--- NOTE | 2019-01-15 18:29 | P.PN ---
Subjective this is pleasant 73 yo M with pmh of hypertension and coronary artery disease who presents with worsening abdominal pain over two months duration , the pain is in the right lower quadrant , radiating to the surrounding abdominal area and around the umbilicus, non specific in character , quite sever as per pt associated with tenderness but no change in urine or bowel habits. no chest pain of dyspnea. no fever, his bp is on low normal side, but pt deneis dizziness. he has mild leukocytosis at 13.8K, Hb 9.1 and elevated platelets. normal lytes , creatinine and liver enz. on exam he has significant abd tenderness. CT of the abd showing cecal tumor with sorrouding abscess. pt has been evaluated by surgical team and the plan for surgical intervention next day . pt is started on zosyn . 01/14/2019 Patient was lying in bed not in distress, is fully awake and alert and oriented. Still have right lower quadrant abdominal pain and tenderness. He has no nausea vomiting, is nothing by mouth now. On IV fluids 75 mg/h. Also undertaken Zosyn for her abdominal abscess. No fever. Vitas looks stable. Lap showing WBC 13.9 K, hemoglobin 9.0, platelets 479. And BMP was unremarkable. Patient is planned to have surgery today for surgical team following the patient closely 01/15/2019 Patient he got complicated surgery yesterday for his perforated right cecal mass and lateral abdominal abscess. After the surgery patient needed reintubation again and he was just her to the ICU. His blood pressure was on the low side that he needed levophed overnight. pt was doing well regarding his respiratory status , he got extubated today , he is awake and was able to take some ice chips. Vital showing respiratory rate 89, respiratory rate 10/m, blood pressure 91/63 and sat 96% on 3 L via nasal cannula. WBC 12.8 K. BX 7.4, pCO2 167 and pO2 29. Creatinine 0.5. Culture results are still pending. Chest x- ray: No change in bibasilar opacity. Patient got several boluses of IV fluids for patient had low urine output. Several services are following the patient including surgery, infectious disease and pulmonary critical care. Patient remains in critical condition. Review of systems N/a. Patient tied could not provide information Medication: Sodium chloride, morphine, Zofran, Zosyn, Protonix, normal saline and heparin, bicarbonate drip, propofol, ropivacaine Objective - Vital Signs Vital signs: Vital Signs Temp 98.4 F 01/15/19 16:00 Pulse 93 01/15/19 16:00 Resp 13 01/15/19 16:00 BP 100/61 01/15/19 16:00 Pulse Ox 95 01/15/19 16:00 Intake & Output 01/14/19 01/15/19 01/15/19 18:59 06:59 18:59 Intake Total 1925.4 4840.643 1245.630 Output Total 365 433 315 Balance 1560.4 4407.643 930.630 Weight 67.2 kg Intake: IV 1925.4 4760 1180 Dextrose 5% in Water 1, 70 840 280 000 ml @ 70 mls/hr IV . [id number] [facility] with Sodium Bicarb (1 Meq/ml) 150 ml Rx#:[id number] Dextrose 5%-0.45% NaCl 1, 420 700 000 ml @ 70 mls/hr IV . [id number] [facility] Rx#:[id number] Magnesium Sulfate-D5w Pmx 100 100 1 gm In Dextrose/Water 1 100ml.bag @ 100 mls/hr IVPB Q1H [facility] Rx#: [id number] Piperacillin-Tazobactam 3 200 100 .375 gm In Sodium Chloride 0.9% 100 ml @ 25 mls/hr IVPB Q8H [facility] Rx#: [id number] Potassium Chloride 10 meq 200 In Water For Injection 1 100ml.bag @ 100 mls/hr IVPB Q1H [facility] Rx#: [id number] Sodium Chloride 0.9% 1, 3000 000 ml @ 999 mls/hr IV . Q1H1M [facility] Rx#:[id number] Intake, IV Titration 0 80.643 65.630 Amount Norepinephrine 4 mg In 20.965 32.947 Sodium Chloride 0.9% 250 ml @ 0.05 MCG/KG/MIN 11. 23 mls/hr IV .[id number] [facility] Rx#:[id number] Propofol 1,000 mg In 0 59.678 32.683 Empty Bag 1 bag @ Titrate IV .Q0M [facility] Rx#: [id number] Output: Drainage 130 40 Right Abdomen 130 40 Urine 215 303 275 Estimated Blood Loss 150 Other: Voiding Method Indwelling Catheter Indwelling Catheter # Voids 1 - Exam GENERAL: The patient is alert and oriented x3, not in any acute distress. Well developed, well nourished. HEENT: Pupils are round and equally reacting to light. EOMI. No scleral icterus. No conjunctival pallor. Normocephalic, atraumatic. No pharyngeal erythema. No thyromegaly. CARDIOVASCULAR: S1 and S2 present. No murmurs, rubs, or gallops. PULMONARY: Chest is clear to auscultation, no wheezing or crackles. -ABDOMEN: Soft, RLQ severe tendernes, nondistended, normoactive bowel sounds. No palpable organomegaly. MUSCULOSKELETAL: No joint swelling or deformity. EXTREMITIES: No cyanosis, clubbing, or pedal edema. NEUROLOGICAL: Gross neurological examination did not reveal any focal deficits. SKIN: No rashes. - Labs CBC & Chem 7: 01/15/19 04:44 01/15/19 07:25 Labs: Abnormal Lab Results - Last 24 Hours (Table) 01/14/19 01/15/19 01/15/19 Range/Units 23:47 04:44 04:44 WBC 12.8 H (3.8-10.6) k/uL RBC 3.05 L (4.30-5.90) m/uL Hgb 8.5 L (13.0-17.5) gm/dL Hct 26.7 L (39.0-53.0) % Neutrophils # 11.1 H (1.3-7.7) k/uL ABG pO2 (83-108) mmHg ABG HCO3 (21-25) mmol/L ABG Total CO2 (19-24) mmol/L ABG O2 Saturation (94-97) % Chloride 110 H (98-107) mmol/L Creatinine 0.53 L (0.66-1.25) mg/dL Glucose 123 H (74-99) mg/dL POC Glucose (mg/dL) 110 H (75-99) mg/dL Calcium 7.4 L (8.4-10.2) mg/dL 01/15/19 01/15/19 Range/Units 08:48 12:00 WBC (3.8-10.6) k/uL RBC (4.30-5.90) m/uL Hgb (13.0-17.5) gm/dL Hct (39.0-53.0) % Neutrophils # (1.3-7.7) k/uL ABG pO2 162 H 167 H (83-108) mmHg ABG HCO3 29 H 29 H (21-25) mmol/L ABG Total CO2 30 H 30 H (19-24) mmol/L ABG O2 Saturation 98.8 H 99.1 H (94-97) % Chloride (98-107) mmol/L Creatinine (0.66-1.25) mg/dL Glucose (74-99) mg/dL POC Glucose (mg/dL) (75-99) mg/dL Calcium (8.4-10.2) mg/dL Microbiology - Last 24 Hours (Table) 01/15/19 08:40 Urine Culture - Preliminary Urine,Catheterized 01/14/19 15:42 Gram Stain - Preliminary Buttock Wound Culture - Preliminary 01/12/19 21:50 Blood Culture - Preliminary Blood No Growth after 48 hours 01/14/19 15:42 Anaerobic Culture - Preliminary Buttock Assessment and Plan Assessment: cecal mass suspicous for cancer Perforated bowel with lateral abdominal abscess Exploratory laparotomy with drainage abdominal wall abscess and right colectomy Septic shock, secondary to above, status post extubation h/o coronoary artery disease essential HTN. Plan: this is a pleasant 73 yo M who presents with abd mass and abscess, continue with anibiotic , and iv fluids, and pain managment , surgical consult is appreciated and plan for surgical intervention , ID team has been consulted as well Labs and medication were reviewed.. Continue same treatment. Continue with symptomatic treatment. Resume home medication. Monitor lytes and vitals. DVT and GI prophylaxis. Further recommendations of the clinical course of the patient DVT prophylaxis: Subcutaneous heparin GI Prophylaxis: protonix Prognosis is guarded
[2019-01-15] MEDS: HEPARIN SODIUM,PORCINE 5,000 UNIT/ML 1 ML VIAL SQ SCH (21:01)
[2019-01-16] MEDS: POTASSIUM CHLORIDE 10 MEQ in WATER FOR INJECTION 1 100ML.BAG IVPB SCH ×7 (00:17→22:52)
[2019-01-16] MEDS: MORPHINE SULFATE 4 MG/ML SYRINGE IVP PRN (00:19)
[2019-01-16] MEDS: NOREPINEPHRINE 4 MG in SODIUM CHLORIDE 0.9% 250 ML IV SCH (03:53)
[2019-01-16] MEDS: DEXTROSE 5%-0.45% NACL 1,000 ML IV SCH ×2 (03:54→23:30)
[2019-01-16] MEDS: PIPERACILLIN-TAZOBACTAM 3.375 GM in SODIUM CHLORIDE 0.9% 100 ML IVPB SCH ×3 (03:55→20:28)
[2019-01-16 05:20] LABS: Basophils % (A) 0 %; Eosinophils # (A) 0.1 k/uL (0-0.7); Eosinophils % (A) 1 %; HCT 29.1 % (39.0-53.0); HGB 8.8 gm/dL (13.0-17.5); Hypochromasia Marked; Lymphocytes % (A) 8 %; MCH 27.3 pg (25.0-35.0); MCHC 30.3 g/dL (31.0-37.0); MCV 90.3 fL (80.0-100.0); Mean Platelet Volume 6.3; Monocytes # (A) 0.5 k/uL (0-1.0); Monocytes % (A) 5 %; Neutrophils % (A) 85 %; Platelet Count 394 k/uL (150-450); RBC 3.23 m/uL (4.30-5.90); RDW 14.2 % (11.5-15.5); WBC 11.8 k/uL (3.8-10.6)
[2019-01-16 05:33] LABS: Anion Gap 4 mmol/L; Blood Urea Nitrogen 8 mg/dL (9-20); Calcium 7.9 mg/dL (8.4-10.2); Carbon Dioxide 29 mmol/L (22-30); Chloride 106 mmol/L (98-107); Glucose 105 mg/dL (74-99); Magnesium 2.1 mg/dL (1.6-2.3); Phosphorus 2.6 mg/dL (2.5-4.5); Potassium 3.4 mmol/L (3.5-5.1); Sodium 139 mmol/L (137-145)
[2019-01-16] MEDS: IPRATROPIUM-ALBUTEROL 3 ML NEB INHALATION SCH ×4 (05:45→20:41)
--- NOTE | 2019-01-16 07:50 | PN ---
PROGRESS NOTE DATE OF SERVICE: 01/15/2019 REASON FOR FOLLOWUP: Abdominal abscess. INTERVAL HISTORY: Patient is status post surgery yesterday. Patient has been breathing comfortably. No chest pain, shortness of breath or cough. EXAMINATION: Blood pressure 150/90 with pulse 92, temperature 98. He is 98% on 2-L nasal cannula. General description is a middle aged male lying in bed in no distress. RESPIRATORY SYSTEM: Unlabored breathing. Clear to auscultation anteriorly. HEART: S1, S2. Regular rate and rhythm. ABDOMEN: Soft, no tenderness. LABS: Hemoglobin is 6.8 with platelet of 108. DIAGNOSTIC IMPRESSION AND PLAN: Patient with abdominal abscess from , status post hemicolectomy. Cultures currently pending. Patient currently on Zosyn and will continue. Continue supportive care. MMODL / IJN: [id number] /
--- NOTE | 2019-01-16 08:06 | XR ---
EXAMINATION TYPE: XR chest 1V portable DATE OF EXAM: 01/16/2019 Comparison: 01/15/2019 Clinical History: 73-year-old male Tube placement Findings: Heart mildly enlarged. Mild hyperinflation. Interval extubation and removal of NG tube. Mild patchy b ibasilar opacities persist with a meniscus at the peripheral left base. Impression: Mild cardiomegaly and possible underlying COPD. Trace left pleural effusion with some patchy bibasila r atelectasis and/or consolidation. Overall relatively similar.
[2019-01-16] MEDS: HEPARIN SODIUM,PORCINE 5,000 UNIT/ML 1 ML VIAL SQ SCH ×2 (08:58→20:28)
[2019-01-16] MEDS: CHLORHEXIDINE GLUCONATE 15 ML CUP MUCOUS MEM SCH ×2 (08:58→20:28)
[2019-01-16] MEDS: PANTOPRAZOLE 40 MG/10 ML VIAL IVP SCH (08:58)
[2019-01-16] MEDS: ROPIVACAINE 250 MG, HYDROMORPHONE (PF) 5 MG in SODIUM CHLORIDE 0.9% 200 ML EPIDURAL PRN (11:24)
--- NOTE | 2019-01-16 12:45 | P.PN ---
Subjective Progress Note Date: 01/16/19 Principal diagnosis: acute abdominal sepsis, status post exploratory laparotomy, drainage of abdominal abscess and right colectomy. Perforated cecal tumor. This is a 73-year-old white male presented to the ER on 01/12/2019, complaining of right lower quadrant abdominal pain. Apparently his pain has been chronic and going on for a few months. Patient also complained of a 10 pound weight loss over the last few weeks, and he had no other complaints. Patient had no headache no blurred vision no dizziness. No nausea no vomiting, no bilateral hematemesis, he is known to have history of elevated PSA and possibly underlying prostate cancer. At any rate patient was seen by many physicians since admission,. He was seen by surgery on consultation and he was admitted to internal medicine. His other medical problems included hypertension, coronary artery disease, previous [place], degenerative joint disease, CT of the abdomen on presentation showed a cecal tumor with surrounding abscess. He was started on Zosyn, and surgery was performed today. Patient underwent exploratory laparotomy, drainage of abdominal wall abscess right colectomy. Patient was found to have perforated right sided colon cancer and abdominal wall abscess. After the surgery, patient was extubated for a brief period of time in the recovery room, however he was noted to have increased shortness of breath, and struggling to breathe on his own. Patient was reintubated by anesthesia, and waited for made for the patient be transferred to the ICU, and I was called about this consultation. Presently the patient is in the ICU on mechanical ventilation. His assist-control rate is 20 he started volume is 450 he is on a PEEP of 5 and FiO2 of 50%. ABG from earlier today showed a pO2 of 243 pCO2 of 47 pH of 7.19. Hence the patient was given bicarb and he was placed on a bicarb drip, I also recommended increasing his assist-control rate from 16-20. The rest of the labs were reviewed, he had a bit of leukocytosis with WBC count of 13.9 hemoglobin was 9. I's and basic metabolic profile were relatively unremarkable. Patient was reevaluated today on 01/15/2019, I saw him yesterday on consultation after he came back from the operating room. Patient remains on mechanical ventilation, and his ventilator settings where basically unchanged since last night.patient remains on sodium bicarb drip which I have discontinued today after reviewing the ABG. ABG this morning showed a pO2 of 162 pCO2 of 44 pH of 7.42 and this was on 50% FiO2. His CBC showed the PEEP cigar of 12.8 hemoglobin is 8.5.basic metabolic profile was noted to be normal. Chest x- rayshowed a small tiny left pleural effusion, not large enough to consider thoracentesis, felt to be reactive pleural effusion from abdominal sepsis and surgery.urine output remains marginal patient did receive over 3 L of fluids last night, and he was placed on norepinephrine presently at 10 mcg/ m.recommended 20 mg of Lasix to be given at the same time I recommended that we start waking up the patient, discontinue propofol, and I will definitely give the patient a weaning trial. I actually did, and patient was eventually placed on a pressure support of 8 and CPAP, follow-up ABG was excellent, and then I recommended extubating the patient to a nasal cannula. CPAP ABG showed a pO2 of 167 pCO2 of 41 pH of 7.45. And he was now on 40% FiO2. Patient was reevaluated today on 01/16/2019, he was extubated yesterday, and his post extubation course has been relatively uneventful. Patient is doing relatively well, however his main concern seems to be a lot of abdominal pain.seen by surgery today, and address the pain issue.patient denies any shortness of breath, no cough no wheezing.labs were reviewed potassium is a bit low being corrected as per protocol.CBC showed the PEEP cigar of 11.8 hemoglobin is 8.8.patient looks very frail, however not in any form of distress , on few liters nasal cannula.chest x-ray showed mostly mild cardiomegaly, very small tiny left pleural effusion, and minimal patchy atelectasis at the base. Incentive spirometry was ordered Objective - Vital Signs Vital signs: Vital Signs Temp 99.1 F 01/16/19 12:00 Pulse 99 01/16/19 12:00 Resp 12 01/16/19 12:00 BP 97/56 01/16/19 12:00 Pulse Ox 100 01/16/19 12:00 Intake & Output 01/15/19 01/16/19 01/16/19 18:59 06:59 18:59 Intake Total 7513.346 8777.429 840 Output Total 375 340 315 Balance 1210.718 791.429 525 Weight 72.6 kg Intake: IV 1320 927.5 840 Dextrose 5% in Water 1, 280 000 ml @ 70 mls/hr IV . [id number] [facility] with Sodium Bicarb (1 Meq/ml) 150 ml Rx#:[id number] Dextrose 5%-0.45% NaCl 1, 840 840 640 000 ml @ 125 mls/hr IV . Q8H [facility] Rx#:[id number] Magnesium Sulfate-D5w Pmx 100 1 gm In Dextrose/Water 1 100ml.bag @ 100 mls/hr IVPB Q1H [facility] Rx#: [id number] Piperacillin-Tazobactam 3 100 87.5 .375 gm In Sodium Chloride 0.9% 100 ml @ 25 mls/hr IVPB Q8H [facility] Rx#: [id number] Potassium Chloride 10 meq 200 In Water For Injection 1 100ml.bag @ 100 mls/hr IVPB Q1H [facility] Rx#: [id number] Intake, IV Titration 265.718 203.929 Amount Norepinephrine 4 mg In 233.035 3.929 Sodium Chloride 0.9% 250 ml @ 0.05 MCG/KG/MIN 11. 23 mls/hr IV .[id number] [facility] Rx#:[id number] Potassium Chloride 10 meq 200 In Water For Injection 1 100ml.bag @ 100 mls/hr IVPB Q1H [facility] Rx#: [id number] Propofol 1,000 mg In 32.683 Empty Bag 1 bag @ Titrate IV .Q0M [facility] Rx#: [id number] Output: Drainage 40 40 Right Abdomen 40 40 Urine 335 340 275 Other: Voiding Method Indwelling Catheter Indwelling Catheter Indwelling Catheter - Exam Physical Exam: Revealed a 73-year-old, cachectic looking, frail, chronically ill , on nasal cannula not in any form of respiratory distress. Head: Atraumatic, normocephalic, however frail looking. HEENT:[Neck is supple.] [No neck masses.] [No thyromegaly.] [No JVD.] PERRLA, EOMI, no icterus. Chest: [diminished breath sounds at the bases no crackles or rhonchi or wheezes. Cardiac Exam: [Normal S1 and S2, no S3 gallop, no murmur.] Abdomen: [Postsurgical, Soft, significantly tender especially at the surgical site., no megaly, no rebound, no guarding, diminished bowel sounds Extremities: [No clubbing, no edema, no cyanosis.] Good pulses noted bilaterally. In upper and lower extremities. Neurological Exam: lethargic, but arousable, generally weak, followed all simple instructions. Psychiatric: depressed mood, blunt affect, slightly lethargic Skin: No rashes. Lymphatics: No lymphadenopathy - Labs CBC & Chem 7: 01/16/19 04:48 01/16/19 04:48 Labs: Abnormal Lab Results - Last 24 Hours (Table) 01/16/19 01/16/19 Range/Units 04:48 04:48 WBC 11.8 H (3.8-10.6) k/uL RBC 3.23 L (4.30-5.90) m/uL Hgb 8.8 L (13.0-17.5) gm/dL Hct 29.1 L (39.0-53.0) % MCHC 30.3 L (31.0-37.0) g/dL Neutrophils # 10.0 H (1.3-7.7) k/uL Potassium 3.4 L (3.5-5.1) mmol/L BUN 8 L (9-20) mg/dL Creatinine 0.54 L (0.66-1.25) mg/dL Glucose 105 H (74-99) mg/dL Calcium 7.9 L (8.4-10.2) mg/dL Microbiology - Last 24 Hours (Table) 01/15/19 08:40 Urine Culture - Final Urine,Catheterized 01/12/19 21:50 Blood Culture - Preliminary Blood No Growth after 72 hours 01/14/19 15:42 Gram Stain - Preliminary Buttock Wound Culture - Preliminary Gram Neg Bacilli Assessment and Plan Assessment: Impression: 1 status post exploratory laparotomy with drainage of abdominal wall abscess and right colectomy, postoperative day #2 2 perforated right sided colon cancer 3 abdominal wall abscess 4 acute abdominal sepsis and acute metabolic acidosis secondary to sepsis, doubt ischemic bowel. 5 history of underlying coronary artery disease presently stable 6 benign essential hypertension presently under control. 7 postoperative atelectasis, expected. Hence the patient will be given incentive spirometry, and hopefully try to get early ambulation and physical therapy on this patient. Recommendation: continue antibiotics, Continue nasal cannula, continue incentive spirometry, pain control medications, has epidural catheter in place.continue bronchodilators. Patient is presently nothing by mouth, no nasogastric tube in place, and hopefully will be placed on some sort of diet in the next 24-48 hours. The abdominal pain issue is being addressed by surgery.Will monitor for the next 24 hours in the ICU, patient remains marginal , and we'll continue to follow Time with Patient: Less than 30
--- NOTE | 2019-01-16 13:00 | P.PN ---
Subjective this is pleasant 73 yo M with pmh of hypertension and coronary artery disease who presents with worsening abdominal pain over two months duration , the pain is in the right lower quadrant , radiating to the surrounding abdominal area and around the umbilicus, non specific in character , quite sever as per pt associated with tenderness but no change in urine or bowel habits. no chest pain of dyspnea. no fever, his bp is on low normal side, but pt deneis dizziness. he has mild leukocytosis at 13.8K, Hb 9.1 and elevated platelets. normal lytes , creatinine and liver enz. on exam he has significant abd tenderness. CT of the abd showing cecal tumor with sorrouding abscess. pt has been evaluated by surgical team and the plan for surgical intervention next day . pt is started on zosyn . 01/14/2019 Patient was lying in bed not in distress, is fully awake and alert and oriented. Still have right lower quadrant abdominal pain and tenderness. He has no nausea vomiting, is nothing by mouth now. On IV fluids 75 mg/h. Also undertaken Zosyn for her abdominal abscess. No fever. Vitas looks stable. Lap showing WBC 13.9 K, hemoglobin 9.0, platelets 479. And BMP was unremarkable. Patient is planned to have surgery today for surgical team following the patient closely 01/15/2019 Patient he got complicated surgery yesterday for his perforated right cecal mass and lateral abdominal abscess. After the surgery patient needed reintubation again and he was just her to the ICU. His blood pressure was on the low side that he needed levophed overnight. pt was doing well regarding his respiratory status , he got extubated today , he is awake and was able to take some ice chips. Vital showing respiratory rate 89, respiratory rate 10/m, blood pressure 91/63 and sat 96% on 3 L via nasal cannula. WBC 12.8 K. BX 7.4, pCO2 167 and pO2 29. Creatinine 0.5. Culture results are still pending. Chest x- ray: No change in bibasilar opacity. Patient got several boluses of IV fluids for patient had low urine output. Several services are following the patient including surgery, infectious disease and pulmonary critical care. Patient remains in critical condition. 01/16/2019 Patient remains in the ICU, is a status post surgery for perforated right cecal mass and lateral abdominal abscess, postop day #2. status post extubation. He is off pressors now. He opens eyes and follow commands. His blood pressure 97/ 56, while off pressors. Leukocytosis is improving, no more fever. Wound culture still showing gram-negative bacilli, pending final results. Chest x- ray showing COPD, left pleural effusion with bibasilar atelectasis or consolidation. Is still on Zosyn. I spoke with the legal guardian Henna at [phone] and updated her with his medical condition, she confirmed to me his full code as family for concerns about his intubation status, she told me she talk to his doctor and that he had wishes before not to be on long-term admission to keep him alive which is thus different from what he needed and that she was sent to be full code . Review of systems N/a. Patient still tired could not provide information Medication: Sodium chloride, morphine, Zofran, Zosyn, Protonix, normal saline and heparin, bicarbonate drip, propofol, ropivacaine Objective - Vital Signs Vital signs: Vital Signs Temp 99.1 F 01/16/19 12:00 Pulse 99 01/16/19 12:00 Resp 12 01/16/19 12:00 BP 97/56 01/16/19 12:00 Pulse Ox 100 01/16/19 12:00 Intake & Output 01/15/19 01/16/19 01/16/19 18:59 06:59 18:59 Intake Total 8923.600 2851.429 840 Output Total 375 340 315 Balance 1210.718 791.429 525 Weight 72.6 kg Intake: IV 1320 927.5 840 Dextrose 5% in Water 1, 280 000 ml @ 70 mls/hr IV . [id number] FORTUNATO with Sodium Bicarb (1 Meq/ml) 150 ml Rx#:[id number] Dextrose 5%-0.45% NaCl 1, 840 840 640 000 ml @ 125 mls/hr IV . Q8H [facility]O Rx#:[id number] Magnesium Sulfate-D5w Pmx 100 1 gm In Dextrose/Water 1 100ml.bag @ 100 mls/hr IVPB Q1H [facility]ATO Rx#: [id number] Piperacillin-Tazobactam 3 100 87.5 .375 gm In Sodium Chloride 0.9% 100 ml @ 25 mls/hr IVPB Q8H [facility]O Rx#: [id number] Potassium Chloride 10 meq 200 In Water For Injection 1 100ml.bag @ 100 mls/hr IVPB Q1H [facility]O Rx#: [id number] Intake, IV Titration 265.718 203.929 Amount Norepinephrine 4 mg In 233.035 3.929 Sodium Chloride 0.9% 250 ml @ 0.05 MCG/KG/MIN 11. 23 mls/hr IV .[id number] [facility]TUNATO Rx#:[id number] Potassium Chloride 10 meq 200 In Water For Injection 1 100ml.bag @ 100 mls/hr IVPB Q1H [facility] Rx#: [id number] Propofol 1,000 mg In 32.683 Empty Bag 1 bag @ Titrate IV .Q0M FORTUNATO Rx#: [id number] Output: Drainage 40 40 Right Abdomen 40 40 Urine 335 340 275 Other: Voiding Method Indwelling Catheter Indwelling Catheter Indwelling Catheter - Exam GENERAL: The patient is alert and oriented x3, not in any acute distress. Well developed, well nourished. HEENT: Pupils are round and equally reacting to light. EOMI. No scleral icterus. No conjunctival pallor. Normocephalic, atraumatic. No pharyngeal erythema. No thyromegaly. CARDIOVASCULAR: S1 and S2 present. No murmurs, rubs, or gallops. PULMONARY: Chest is clear to auscultation, no wheezing or crackles. -ABDOMEN: Soft, RLQ severe tendernes, nondistended, normoactive bowel sounds. No palpable organomegaly. MUSCULOSKELETAL: No joint swelling or deformity. EXTREMITIES: No cyanosis, clubbing, or pedal edema. NEUROLOGICAL: Gross neurological examination did not reveal any focal deficits. SKIN: No rashes. - Labs CBC & Chem 7: 01/16/19 04:48 01/16/19 04:48 Labs: Abnormal Lab Results - Last 24 Hours (Table) 01/16/19 01/16/19 Range/Units 04:48 04:48 WBC 11.8 H (3.8-10.6) k/uL RBC 3.23 L (4.30-5.90) m/uL Hgb 8.8 L (13.0-17.5) gm/dL Hct 29.1 L (39.0-53.0) % MCHC 30.3 L (31.0-37.0) g/dL Neutrophils # 10.0 H (1.3-7.7) k/uL Potassium 3.4 L (3.5-5.1) mmol/L BUN 8 L (9-20) mg/dL Creatinine 0.54 L (0.66-1.25) mg/dL Glucose 105 H (74-99) mg/dL Calcium 7.9 L (8.4-10.2) mg/dL Microbiology - Last 24 Hours (Table) 01/15/19 08:40 Urine Culture - Final Urine,Catheterized 01/12/19 21:50 Blood Culture - Preliminary Blood No Growth after 72 hours 01/14/19 15:42 Gram Stain - Preliminary Buttock Wound Culture - Preliminary Gram Neg Bacilli Assessment and Plan Assessment: cecal mass suspicous for cancer Perforated bowel with lateral abdominal abscess Exploratory laparotomy with drainage abdominal wall abscess and right colectomy Septic shock, secondary to above, status post extubation h/o coronoary artery disease essential HTN. Plan: this is a pleasant 73 yo M who presents with abd mass and abscess, continue with anibiotic , and iv fluids, and pain managment , surgical consult is appreciated and plan for surgical intervention , ID team has been consulted as well Labs and medication were reviewed.. Continue same treatment. Continue with symptomatic treatment. Resume home medication. Monitor lytes and vitals. DVT and GI prophylaxis. Further recommendations of the clinical course of the patient DVT prophylaxis: Subcutaneous heparin GI Prophylaxis: protonix Prognosis is guarded
--- NOTE | 2019-01-16 15:25 | P.PN ---
Progress Note - Text Progress Note Date: 01/16/19 69-year-old male status post exploratory laparotomy with right colectomy. Postop day #2, epidural catheter day #3. Patient is extubated and doing well. Hemodynamically stable. Epidural is at 5 ML's an hour currently, complains of some pain to touch on the right compared to left. Abdomen is not tender to palpate. Continue with current settings.
--- NOTE | 2019-01-16 22:35 | PN ---
PROGRESS NOTE DATE OF SERVICE: 01/16/2019. REASON FOR FOLLOWUP: Abdominal abscess. INTERVAL HISTORY: The patient is currently afebrile. He has been breathing comfortably. Denies having any chest pain. No abdominal pain, no nausea or vomiting. PHYSICAL EXAMINATION: Blood pressure 109/56 with a pulse of 87, temperature 97.8, he is 98% on 2 L nasal cannula. GENERAL DESCRIPTION: An elderly male lying in bed in no distress. RESPIRATORY SYSTEM: Unlabored breathing. Clear to auscultation anteriorly. HEART: S1, S2. Regular rate and rhythm. ABDOMEN: Soft. Tenderness over the colon area. EXTREMITIES: No edema of the feet. LABS: Hemoglobin 8.8, white count 11.8 with a BUN of 8, creatinine 0.54. Abdominal culture with a gram-negative bacilli. The blood culture has been negative. DIAGNOSTIC IMPRESSION AND PLAN: Patient with abdominal abscess. The patient is status post drainage of the abscess and right colectomy. Cultures gram-negative. The patient is currently covered with Zosyn to continue for while while waiting for the culture to finalize. Continue supportive care. MMODL / IJN: [id number] /
[2019-01-17] MEDS: DEXTROSE 5%-0.45% NACL 1,000 ML IV SCH ×3 (00:33→23:03)
[2019-01-17] MEDS: NOREPINEPHRINE 4 MG in SODIUM CHLORIDE 0.9% 250 ML IV SCH (00:34)
[2019-01-17] MEDS: PIPERACILLIN-TAZOBACTAM 3.375 GM in SODIUM CHLORIDE 0.9% 100 ML IVPB SCH ×3 (03:04→20:31)
[2019-01-17 05:03] LABS: Basophils % (A) 0 %; Eosinophils # (A) 0.1 k/uL (0-0.7); Eosinophils % (A) 1 %; Hypochromasia Marked; Lymphocytes # (A) 0.6 k/uL (1.0-4.8); Lymphocytes % (A) 7 %; MCH 28.5 pg (25.0-35.0); MCHC 29.7 g/dL (31.0-37.0); MCV 95.7 fL (80.0-100.0); Mean Platelet Volume 6.7; Monocytes # (A) 0.4 k/uL (0-1.0); Monocytes % (A) 5 %; Neutrophils # (A) 7.3 k/uL (1.3-7.7); Neutrophils % (A) 85 %; Platelet Count 291 k/uL (150-450); RBC 2.09 m/uL (4.30-5.90); WBC 8.6 k/uL (3.8-10.6)
[2019-01-17 05:39] LABS: Anion Gap 19 mmol/L; Blood Urea Nitrogen 3 mg/dL (9-20); Carbon Dioxide 17 mmol/L (22-30); Chloride 120 mmol/L (98-107); Glucose 70 mg/dL (74-99); Magnesium 1.3 mg/dL (1.6-2.3); Phosphorus 1.7 mg/dL (2.5-4.5); Sodium 156 mmol/L (137-145)
[2019-01-17 05:42] LABS: HCT 26.8 % (39.0-53.0); Hypochromasia Marked; MCH 27.5 pg (25.0-35.0); MCHC 29.5 g/dL (31.0-37.0); MCV 93.3 fL (80.0-100.0); Mean Platelet Volume 7.3; Platelet Count 347 k/uL (150-450); RBC 2.87 m/uL (4.30-5.90); WBC 11.7 k/uL (3.8-10.6)
[2019-01-17 05:44] LABS: HGB 7.9 gm/dL (13.0-17.5)
[2019-01-17 05:55] LABS: Potassium 2.5 mmol/L (3.5-5.1)
[2019-01-17 05:56] LABS: Calcium 5.5 mg/dL (8.4-10.2)
--- NOTE | 2019-01-17 06:20 | P.PN ---
Progress Note - Text Progress Note Date: 01/17/19 73-year-old male status post exporter laparotomy postop day #3 epidural catheter day 4. Patient doing well no motor sensory deficits. Epidural catheter is to be removed today instructions given to the nursing staff to bolus epidural catheter then removed. Then wait 2 hours before giving subQ heparin
[2019-01-17 06:54] LABS: ALT 24 U/L (21-72); AST 22 U/L (17-59); Albumin 2.1 g/dL (3.5-5.0); Alkaline Phosphatase 67 U/L (38-126); Anion Gap 5 mmol/L; Blood Urea Nitrogen 5 mg/dL (9-20); Calcium 7.9 mg/dL (8.4-10.2); Carbon Dioxide 29 mmol/L (22-30); Chloride 104 mmol/L (98-107); Glucose 98 mg/dL (74-99); Potassium 3.7 mmol/L (3.5-5.1); Sodium 138 mmol/L (137-145); Total Bilirubin 0.4 mg/dL (0.2-1.3); Total Protein 5.1 g/dL (6.3-8.2)
[2019-01-17] MEDS ORDERED: Phosphorus Replacement Protoco 1 EACH MISC MISCELLANE PRN (07:06)
[2019-01-17] MEDS: IPRATROPIUM-ALBUTEROL 3 ML NEB INHALATION SCH ×4 (07:09→20:44)
[2019-01-17] MEDS ORDERED: POTASSIUM PHOSPHATE 10 MMOL in SODIUM CHLORIDE 0.9% 250 ML IV SCH (07:15)
[2019-01-17] MEDS: MAGNESIUM SULFATE-D5W PMX 1 GM in DEXTROSE/WATER 1 100ML.BAG IVPB SCH ×3 (07:19→17:04)
[2019-01-17] MEDS: POTASSIUM CHLORIDE 10 MEQ in WATER FOR INJECTION 1 100ML.BAG IVPB SCH ×2 (07:24→10:30)
--- NOTE | 2019-01-17 07:51 | P.PN ---
Subjective Progress Note Date: 01/16/19 Principal diagnosis: Patient is stable. May have popsicles. Still in the ICU off pressors Objective - Vital Signs Vital signs: Vital Signs Temp 99.1 F 01/16/19 20:00 Pulse 93 01/16/19 22:00 Resp 19 01/16/19 22:00 BP 97/51 01/16/19 22:00 Pulse Ox 97 01/16/19 22:00 Intake & Output 01/16/19 01/16/19 01/17/19 06:59 18:59 06:59 Intake Total 8411.349 8764 475 Output Total 340 535 130 Balance 945.925 8129 345 Weight 72.6 kg Intake: IV 927.5 1590 475 Dextrose 5%-0.45% NaCl 1, 840 1390 375 000 ml @ 125 mls/hr IV . Q8H [facility] Rx#:[id number] Piperacillin-Tazobactam 3 87.5 100 .375 gm In Sodium Chloride 0.9% 100 ml @ 25 mls/hr IVPB Q8H [facility]TUNATO Rx#: [id number] Potassium Chloride 10 meq 200 In Water For Injection 1 100ml.bag @ 100 mls/hr IVPB Q1H [facility]ATO Rx#: [id number] Intake, IV Titration 203.929 Amount Norepinephrine 4 mg In 3.929 Sodium Chloride 0.9% 250 ml @ 0.05 MCG/KG/MIN 11. 23 mls/hr IV .[id number] FORTUNATO Rx#:[id number] Potassium Chloride 10 meq 200 In Water For Injection 1 100ml.bag @ 100 mls/hr IVPB Q1H [facility] Rx#: [id number] Output: Drainage 40 35 Right Abdomen 40 35 Urine 340 495 95 Other: Voiding Method Indwelling Catheter Indwelling Catheter Indwelling Catheter - Labs CBC & Chem 7: 01/17/19 05:27 01/17/19 06:27 Labs: Abnormal Lab Results - Last 24 Hours (Table) 01/16/19 01/16/19 Range/Units 04:48 04:48 WBC 11.8 H (3.8-10.6) k/uL RBC 3.23 L (4.30-5.90) m/uL Hgb 8.8 L (13.0-17.5) gm/dL Hct 29.1 L (39.0-53.0) % MCHC 30.3 L (31.0-37.0) g/dL Neutrophils # 10.0 H (1.3-7.7) k/uL Potassium 3.4 L (3.5-5.1) mmol/L BUN 8 L (9-20) mg/dL Creatinine 0.54 L (0.66-1.25) mg/dL Glucose 105 H (74-99) mg/dL Calcium 7.9 L (8.4-10.2) mg/dL Microbiology - Last 24 Hours (Table) 01/15/19 08:40 Urine Culture - Final Urine,Catheterized 01/12/19 21:50 Blood Culture - Preliminary Blood No Growth after 72 hours 01/14/19 15:42 Gram Stain - Preliminary Buttock Wound Culture - Preliminary Gram Neg Bacilli Assessment and Plan (1) Cecal cancer Current Visit: Yes Status: Acute Code(s): C18.0 - MALIGNANT NEOPLASM OF CECUM SNOMED Code(s): 338864041 (2) Cecum mass Current Visit: Yes Status: Acute Code(s): K63.9 - DISEASE OF INTESTINE, UNSPECIFIED SNOMED Code(s): 901289861 (3) Intra-abdominal abscess Current Visit: Yes Status: Acute Code(s): K65.1 - PERITONEAL ABSCESS SNOMED Code(s): 96800456 (4) Perforated abdominal viscus Current Visit: Yes Status: Acute Code(s): COT4185 - SNOMED Code(s): 066210058
[2019-01-17] MEDS: PANTOPRAZOLE 40 MG/10 ML VIAL IVP SCH (08:03)
[2019-01-17] MEDS: SODIUM PHOSPHATE 10 MMOL in SODIUM CHLORIDE 0.9% 250 ML IVPB SCH ×2 (08:06→10:31)
--- NOTE | 2019-01-17 08:28 | XR ---
EXAMINATION TYPE: XR chest 1V portable DATE OF EXAM: 01/17/2019 COMPARISON: 01/16/2019 INDICATION: Abnormal adventitious lung sounds TECHNIQUE: Single frontal view of the chest is obtained. FINDINGS: The heart size is mildly prominent. The pulmonary vasculature is normal. There is a small left pleural effusion. Bibasilar infiltrates are present. Correlate for atelectasis. IMPRESSION: 1. Small left pleural effusion and bibasilar infiltrates. Correlate for atelectasis. Other etiologies are not excluded. Follow-up is recommended.
--- NOTE | 2019-01-17 10:21 | P.PN ---
Subjective Progress Note Date: 01/17/19 Principal diagnosis: Acute abdominal sepsis, status post exploratory laparotomy, drainage of abdominal abscess and right colectomy, perforated cecal tumor This is a 73-year-old white male presented to the ER on 01/12/2019, complaining of right lower quadrant abdominal pain. Apparently his pain has been chronic and going on for a few months. Patient also complained of a 10 pound weight loss over the last few weeks, and he had no other complaints. Patient had no headache no blurred vision no dizziness. No nausea no vomiting, no bilateral hematemesis, he is known to have history of elevated PSA and possibly underlying prostate cancer. At any rate patient was seen by many physicians since admission,. He was seen by surgery on consultation and he was admitted to internal medicine. His other medical problems included hypertension, coronary artery disease, previous [place], degenerative joint disease, CT of the abdomen on presentation showed a cecal tumor with surrounding abscess. He was started on Zosyn, and surgery was performed today. Patient underwent exploratory laparotomy, drainage of abdominal wall abscess right colectomy. Patient was found to have perforated right sided colon cancer and abdominal wall abscess. After the surgery, patient was extubated for a brief period of time in the recovery room, however he was noted to have increased shortness of breath, and struggling to breathe on his own. Patient was reintubated by anesthesia, and waited for made for the patient be transferred to the ICU, and I was called about this consultation. Presently the patient is in the ICU on mechanical ventilation. His assist-control rate is 20 he started volume is 450 he is on a PEEP of 5 and FiO2 of 50%. ABG from earlier today showed a pO2 of 243 pCO2 of 47 pH of 7.19. Hence the patient was given bicarb and he was placed on a bicarb drip, I also recommended increasing his assist-control rate from 16-20. The rest of the labs were reviewed, he had a bit of leukocytosis with WBC count of 13.9 hemoglobin was 9. I's and basic metabolic profile were relatively unremarkable. Patient was reevaluated today on 01/15/2019, I saw him yesterday on consultation after he came back from the operating room. Patient remains on mechanical ventilation, and his ventilator settings where basically unchanged since last night.patient remains on sodium bicarb drip which I have discontinued today after reviewing the ABG. ABG this morning showed a pO2 of 162 pCO2 of 44 pH of 7.42 and this was on 50% FiO2. His CBC showed the PEEP cigar of 12.8 hemoglobin is 8.5.basic metabolic profile was noted to be normal. Chest x- rayshowed a small tiny left pleural effusion, not large enough to consider thoracentesis, felt to be reactive pleural effusion from abdominal sepsis and surgery.urine output remains marginal patient did receive over 3 L of fluids last night, and he was placed on norepinephrine presently at 10 mcg/ m.recommended 20 mg of Lasix to be given at the same time I recommended that we start waking up the patient, discontinue propofol, and I will definitely give the patient a weaning trial. I actually did, and patient was eventually placed on a pressure support of 8 and CPAP, follow-up ABG was excellent, and then I recommended extubating the patient to a nasal cannula. CPAP ABG showed a pO2 of 167 pCO2 of 41 pH of 7.45. And he was now on 40% FiO2. Patient was reevaluated today on 01/16/2019, he was extubated yesterday, and his post extubation course has been relatively uneventful. Patient is doing relatively well, however his main concern seems to be a lot of abdominal pain.seen by surgery today, and address the pain issue.patient denies any shortness of breath, no cough no wheezing.labs were reviewed potassium is a bit low being corrected as per protocol.CBC showed the PEEP cigar of 11.8 hemoglobin is 8.8.patient looks very frail, however not in any form of distress , on few liters nasal cannula.chest x-ray showed mostly mild cardiomegaly, very small tiny left pleural effusion, and minimal patchy atelectasis at the base. Incentive spirometry was ordered On 01/17/2017 patient seen in follow-up in the intensive care unit, this is postoperative day 3, post exploratory laparotomy, drainage of abdominal abscess and right colectomy. Patient was successfully extubated on 01/15/2019, currently on 3 L per nasal cannula his pulse ox is 98%, T-max is 99.4F this morning, axillary, blood pressures 94/48, sinus rhythm with a rate of 80 bPM. he was lethargic, arousable to verbal stimuli briefly, then was back asleep, only able to mumble one-word answer. Today's lab work showed white blood cell count of 11.7, hemoglobin is 7.9, electrolytes are within normal limits, B1 is 5 and creatinine was 0.46. IV fluids include D5 half-normal saline at a rate of 125 ML per hour, and 0.9 at 20 ML per hour, no other drips. Patient's epidural catheter was discontinued this morning. Denies any difficulty breathing, no abdominal discomfort, mid abdominal incision is clean dry and intact, covered with surgical dressing, right-sided EJ drain with small to moderate amount of serosanguineous output. Bowel sounds are hypoactive, no nausea or vomiting, patient is nothing by mouth currently. Urine culture on patient's buttocks showed E. coli, urine culture and blood culture no growth. Antibiotic coverage in the form of Zosyn, and the wound culture E. coli with susceptibility to Zosyn. Objective - Vital Signs Vital signs: Vital Signs Temp 99.4 F 01/17/19 08:00 Pulse 87 01/17/19 08:00 Resp 14 01/17/19 08:00 BP 94/48 01/17/19 08:00 Pulse Ox 98 01/17/19 08:00 Intake & Output 01/16/19 01/17/19 01/17/19 18:59 06:59 18:59 Intake Total 1590 1575 500 Output Total 535 430 85 Balance 1055 1145 415 Weight 76.2 kg Intake: IV 1590 1575 500 Dextrose 5%-0.45% NaCl 1, 1390 1375 250 000 ml @ 125 mls/hr IV . Q8H [facility] Rx#:[id number] Piperacillin-Tazobactam 3 200 .375 gm In Sodium Chloride 0.9% 100 ml @ 25 mls/hr IVPB Q8H [facility] Rx#: [id number] Potassium Chloride 10 meq 200 In Water For Injection 1 100ml.bag @ 100 mls/hr IVPB Q1H [facility] Rx#: [id number] Sodium Phosphate 10 mmol 250 In Sodium Chloride 0.9% 250 ml @ 125 mls/hr IVPB Q2H [facility] Rx#:[id number] Output: Drainage 40 35 Right Abdomen 40 35 Urine 495 395 85 Other: Voiding Method Indwelling Catheter Indwelling Catheter - Exam GENERAL EXAM: Lethargic, somnolent elderly 73-year-old white male, 3 L per nasal cannula comfortable in no apparent distress. HEAD: Normocephalic/atraumatic. EYES: Normal reaction of pupils, equal size. Conjunctiva pink, sclera white. NOSE: Clear with pink turbinates. THROAT: No erythema or exudates. NECK: No masses, no JVD, no thyroid enlargement, no adenopathy. CHEST: No chest wall deformity. Symmetrical expansion. LUNGS: Equal air entry with a few scattered rhonchi CVS: Regular rate and rhythm, normal S1 and S2, no gallops, no murmurs, no rubs ABDOMEN: Soft, nontender. At abdominal incision is clean dry and intact, covered with a surgical dressing, right-sided EJ drain with minimal amount of serosanguineous output. Bowel sounds are hypoactive EXTREMITIES: No clubbing, no edema, no cyanosis, 2+ pulses and upper and lower extremities. MUSCULOSKELETAL: Muscle strength and tone normal. SPINE: No scoliosis or deformity SKIN: No rashes CENTRAL NERVOUS SYSTEM: Lethargic, focal deficits, tone is normal in all 4 extremities. - Labs CBC & Chem 7: 01/17/19 05:27 01/17/19 06:27 Labs: Abnormal Lab Results - Last 24 Hours (Table) 01/17/19 01/17/19 01/17/19 Range/Units 04:50 04:50 05:27 WBC 11.7 H (3.8-10.6) k/uL RBC 2.09 L 2.87 L (4.30-5.90) m/uL Hgb 6.0 L* D 7.9 L D (13.0-17.5) gm/dL Hct 20.0 L 26.8 L (39.0-53.0) % MCHC 29.7 L 29.5 L (31.0-37.0) g/dL Lymphocytes # 0.6 L (1.0-4.8) k/uL Sodium 156 H (137-145) mmol/L Potassium 2.5 L* (3.5-5.1) mmol/L Chloride 120 H (98-107) mmol/L Carbon Dioxide 17 L (22-30) mmol/L BUN 3 L (9-20) mg/dL Creatinine 0.25 L (0.66-1.25) mg/dL Glucose 70 L (74-99) mg/dL Calcium 5.5 L* (8.4-10.2) mg/dL Phosphorus 1.7 L (2.5-4.5) mg/dL Magnesium 1.3 L (1.6-2.3) mg/dL Total Protein (6.3-8.2) g/dL Albumin (3.5-5.0) g/dL 01/17/19 Range/Units 06:27 WBC (3.8-10.6) k/uL RBC (4.30-5.90) m/uL Hgb (13.0-17.5) gm/dL Hct (39.0-53.0) % MCHC (31.0-37.0) g/dL Lymphocytes # (1.0-4.8) k/uL Sodium (137-145) mmol/L Potassium (3.5-5.1) mmol/L Chloride (98-107) mmol/L Carbon Dioxide (22-30) mmol/L BUN 5 L (9-20) mg/dL Creatinine 0.46 L (0.66-1.25) mg/dL Glucose (74-99) mg/dL Calcium 7.9 L (8.4-10.2) mg/dL Phosphorus (2.5-4.5) mg/dL Magnesium (1.6-2.3) mg/dL Total Protein 5.1 L (6.3-8.2) g/dL Albumin 2.1 L (3.5-5.0) g/dL Microbiology - Last 24 Hours (Table) 01/12/19 21:50 Blood Culture - Preliminary Blood No Growth after 96 hours 01/14/19 15:42 Gram Stain - Final Buttock Wound Culture - Final Escherichia coli 01/15/19 08:40 Urine Culture - Final Urine,Catheterized Assessment and Plan Plan: Assessment: 1 status post exploratory laparotomy with drainage of abdominal wall abscess and right colectomy, postoperative day #3 2 perforated right sided colon cancer 3 abdominal wall abscess 4 acute abdominal sepsis and acute metabolic acidosis secondary to sepsis, doubt ischemic bowel. 5 history of underlying coronary artery disease presently stable 6 benign essential hypertension presently under control. 7 postoperative atelectasis, expected. Hence the patient will be given incentive spirometry, and hopefully try to get early ambulation and physical therapy on this patient. Plan: Continue current antibiotic coverage, continue IV fluids, patient is very lethargic on today's exam, maintain aspiration precautions. Epidural catheter has been discontinued. Continue bronchodilators, maintain nothing by mouth for the patient is awake and alert. Today's chest x-ray has been reviewed with Dr. Thakkar, and shows small left pleural effusion and bibasilar infiltrates likely related to atelectasis. No fever or chills, hemodynamic patient is stable, GI and DVT prophylaxis. Will remain in the intensive care unit, monitor mentation , level of consciousness. Will need aggressive pulmonary toileting, feeding and coughing and incentive spirometry use once awake. I performed a history & physical examination of the patient and discussed their management with my nurse practitioner, Alisha Ye. I reviewed the nurse practitioner's note and agree with the documented findings and plan of care. Lung sounds are positive for a few rhonchi. The findings and the impression was discussed with the patient. I attest to the documentation by the nurse practitioner. Time with Patient: Greater than 30
[2019-01-17] MEDS: HEPARIN SODIUM,PORCINE 5,000 UNIT/ML 1 ML VIAL SQ SCH ×2 (10:31→20:38)
[2019-01-17] MEDS: MORPHINE SULFATE 4 MG/ML SYRINGE IVP PRN ×3 (12:19→20:38)
--- NOTE | 2019-01-17 12:44 | P.PN ---
Subjective Progress Note Date: 01/17/19 CHIEF COMPLAINT: abdominal pain HISTORY OF PRESENT ILLNESS: Patient examined at the bedside. Patient is s/p exploratory laparotomy with drainage of abdominal wall abscess and right colectomy on 01/14/2018. POD #3. Patient is tolerating ice chips. Passing flatus. No BM. Reports pain is tolerable. Epidural was discontinued this morning. PHYSICAL EXAM: VITAL SIGNS: Currently stable. GENERAL: Well-developed, thin male, in no acute distress. HEENT: No sclera icterus. Extraocular movements grossly intact. Moist buccal mucosa. Head is atraumatic, normocephalic. Hears conversational speech. No nasal drainage. NECK: Supple without lymphadenopathy. CHEST: Non-labored respirations and equal bilateral excursions. CARDIOVASCULAR: Regular rate with regular rhythm. Palpable 2+ radial pulses. ABDOMEN: Soft. Nondistended. Dressing clean dry and intact. EJ with sanguinous drainage. MUSCULOSKELETAL: No clubbing, cyanosis or edema. NEUROLOGIC: No focal or lateralizing signs. Cranial nerves II through XII grossly intact. PSYCH: Appropriate affect. Alert and oriented to person. SKIN: Well perfused. Good skin turgor. ASSESSMENT: 1. 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 S/P exploratory laparotomy with drainage of abdominal wall abscess and right colectomy 3. Leukocytosis PLAN: 1. Begin clear liquid diet 2. Continue antibiotics. Dr. Mendez on consult. 3. Discontinue urinary catheter tomorrow morning 4. Increase activity. PT/OT 5. Pain control 6. Incentive spirometry Nurse practitioner note has been reviewed by physician. Signing provider agrees with the documented findings, assessment, and plan of care. Objective - Vital Signs Vital signs: Vital Signs Temp 99.4 F 01/17/19 08:00 Pulse 97 01/17/19 11:17 Resp 17 01/17/19 11:00 BP 110/75 01/17/19 11:00 Pulse Ox 99 01/17/19 11:00 Intake & Output 01/16/19 01/17/19 01/17/19 18:59 06:59 18:59 Intake Total 1590 1575 975 Output Total 535 430 220 Balance 1055 1145 755 Weight 76.2 kg 76.2 kg Intake: IV 1590 1575 975 Dextrose 5%-0.45% NaCl 1, 1390 1375 625 000 ml @ 125 mls/hr IV . Q8H [facility] Rx#:[id number] Piperacillin-Tazobactam 3 200 .375 gm In Sodium Chloride 0.9% 100 ml @ 25 mls/hr IVPB Q8H [facility] Rx#: [id number] Potassium Chloride 10 meq 200 100 In Water For Injection 1 100ml.bag @ 100 mls/hr IVPB Q1H [facility] Rx#: [id number] Sodium Phosphate 10 mmol 250 In Sodium Chloride 0.9% 250 ml @ 125 mls/hr IVPB Q2H [facility] Rx#:[id number] Output: Drainage 40 35 Right Abdomen 40 35 Urine 495 395 220 Other: Voiding Method Indwelling Catheter Indwelling Catheter Indwelling Catheter - Labs CBC & Chem 7: 01/17/19 05:27 01/17/19 06:27 Labs: Abnormal Lab Results - Last 24 Hours (Table) 01/17/19 01/17/19 01/17/19 Range/Units 04:50 04:50 05:27 WBC 11.7 H (3.8-10.6) k/uL RBC 2.09 L 2.87 L (4.30-5.90) m/uL Hgb 6.0 L* D 7.9 L D (13.0-17.5) gm/dL Hct 20.0 L 26.8 L (39.0-53.0) % MCHC 29.7 L 29.5 L (31.0-37.0) g/dL Lymphocytes # 0.6 L (1.0-4.8) k/uL Sodium 156 H (137-145) mmol/L Potassium 2.5 L* (3.5-5.1) mmol/L Chloride 120 H (98-107) mmol/L Carbon Dioxide 17 L (22-30) mmol/L BUN 3 L (9-20) mg/dL Creatinine 0.25 L (0.66-1.25) mg/dL Glucose 70 L (74-99) mg/dL Calcium 5.5 L* (8.4-10.2) mg/dL Phosphorus 1.7 L (2.5-4.5) mg/dL Magnesium 1.3 L (1.6-2.3) mg/dL Total Protein (6.3-8.2) g/dL Albumin (3.5-5.0) g/dL 01/17/19 Range/Units 06:27 WBC (3.8-10.6) k/uL RBC (4.30-5.90) m/uL Hgb (13.0-17.5) gm/dL Hct (39.0-53.0) % MCHC (31.0-37.0) g/dL Lymphocytes # (1.0-4.8) k/uL Sodium (137-145) mmol/L Potassium (3.5-5.1) mmol/L Chloride (98-107) mmol/L Carbon Dioxide (22-30) mmol/L BUN 5 L (9-20) mg/dL Creatinine 0.46 L (0.66-1.25) mg/dL Glucose (74-99) mg/dL Calcium 7.9 L (8.4-10.2) mg/dL Phosphorus (2.5-4.5) mg/dL Magnesium (1.6-2.3) mg/dL Total Protein 5.1 L (6.3-8.2) g/dL Albumin 2.1 L (3.5-5.0) g/dL Microbiology - Last 24 Hours (Table) 01/12/19 21:50 Blood Culture - Preliminary Blood No Growth after 96 hours 01/14/19 15:42 Gram Stain - Final Buttock Wound Culture - Final Escherichia coli 01/15/19 08:40 Urine Culture - Final Urine,Catheterized
--- NOTE | 2019-01-17 20:17 | PN ---
PROGRESS NOTE DATE OF SERVICE: 01/17/2019. REASON FOR FOLLOWUP: Abdominal abscess. INTERVAL HISTORY: The patient is currently afebrile, has been breathing comfortably. Denies having any chest pain or any cough. No worsening abdominal pain. PHYSICAL EXAMINATION: Blood pressure 134/77 with a pulse of 104. Temperature 98.4. He is 98% on room air. General description is an elderly male lying in bed in no distress. RESPIRATORY SYSTEM: Unlabored breathing. Clear to auscultation anteriorly. HEART: S1, S2. Regular rate and rhythm. ABDOMEN: Soft, mildly tender. No guarding or rigidity. LABS: Hemoglobin 7.8, white count 11.7, BUN of 5, creatinine 0.46. Abdominal cultures with E coli is resistant to ampicillin and intermediate to Unasyn, and sensitive to Zosyn. DIAGNOSTIC IMPRESSION AND PLAN: Patient with abdominal abscess from ruptured colon tumor, status post right hemicolectomy. The patient is currently covered with Zosyn. That will be continued for now. Monitor his clinical course closely. Continue supportive care. MMODL / IJN: [id number] /
[2019-01-18] MEDS: NOREPINEPHRINE 4 MG in SODIUM CHLORIDE 0.9% 250 ML IV SCH (00:09)
--- NOTE | 2019-01-18 00:29 | P.PN ---
Subjective this is pleasant 73 yo M with pmh of hypertension and coronary artery disease who presents with worsening abdominal pain over two months duration , the pain is in the right lower quadrant , radiating to the surrounding abdominal area and around the umbilicus, non specific in character , quite sever as per pt associated with tenderness but no change in urine or bowel habits. no chest pain of dyspnea. no fever, his bp is on low normal side, but pt deneis dizziness. he has mild leukocytosis at 13.8K, Hb 9.1 and elevated platelets. normal lytes , creatinine and liver enz. on exam he has significant abd tenderness. CT of the abd showing cecal tumor with sorrouding abscess. pt has been evaluated by surgical team and the plan for surgical intervention next day . pt is started on zosyn . 01/14/2019 Patient was lying in bed not in distress, is fully awake and alert and oriented. Still have right lower quadrant abdominal pain and tenderness. He has no nausea vomiting, is nothing by mouth now. On IV fluids 75 mg/h. Also undertaken Zosyn for her abdominal abscess. No fever. Vitas looks stable. Lap showing WBC 13.9 K, hemoglobin 9.0, platelets 479. And BMP was unremarkable. Patient is planned to have surgery today for surgical team following the patient closely 01/15/2019 Patient he got complicated surgery yesterday for his perforated right cecal mass and lateral abdominal abscess. After the surgery patient needed reintubation again and he was just her to the ICU. His blood pressure was on the low side that he needed levophed overnight. pt was doing well regarding his respiratory status , he got extubated today , he is awake and was able to take some ice chips. Vital showing respiratory rate 89, respiratory rate 10/m, blood pressure 91/63 and sat 96% on 3 L via nasal cannula. WBC 12.8 K. BX 7.4, pCO2 167 and pO2 29. Creatinine 0.5. Culture results are still pending. Chest x- ray: No change in bibasilar opacity. Patient got several boluses of IV fluids for patient had low urine output. Several services are following the patient including surgery, infectious disease and pulmonary critical care. Patient remains in critical condition. 01/16/2019 Patient remains in the ICU, is a status post surgery for perforated right cecal mass and lateral abdominal abscess, postop day #2. status post extubation. He is off pressors now. He opens eyes and follow commands. His blood pressure 97/ 56, while off pressors. Leukocytosis is improving, no more fever. Wound culture still showing gram-negative bacilli, pending final results. Chest x- ray showing COPD, left pleural effusion with bibasilar atelectasis or consolidation. Is still on Zosyn. I spoke with the legal guardian Henna at [phone] and updated her with his medical condition, she confirmed to me his full code as family for concerns about his intubation status, she told me she talk to his doctor and that he had wishes before not to be on long-term admission to keep him alive which is thus different from what he needed and that she was sent to be full code . 01/17/19 pt is in ICU, lethargic, but awake , is a status post surgery for perforated right cecal mass and lateral abdominal abscess, postop day #3. status post extubation. He is off pressors now. He opens eyes and follow commands. is tolerating diet well, has gas , no bowel movement. Review of systems N/a. Patient still tired could not provide information Medication: Sodium chloride, morphine, Zofran, Zosyn, Protonix, normal saline and heparin, bicarbonate drip, propofol, ropivacaine Objective - Vital Signs Vital signs: Vital Signs Temp 99.4 F 01/17/19 16:00 Pulse 92 01/17/19 19:00 Resp 10 L 01/17/19 19:00 BP 101/64 01/17/19 19:00 Pulse Ox 99 01/17/19 19:00 Intake & Output 01/17/19 01/17/19 01/18/19 06:59 18:59 06:59 Intake Total 1575 2315 125 Output Total 430 695 60 Balance 1145 1620 65 Weight 76.2 kg 76.2 kg Intake: IV 1575 2075 125 Dextrose 5%-0.45% NaCl 1, 1375 1500 125 000 ml @ 125 mls/hr IV . Q8H [facility] Rx#:[id number] Magnesium Sulfate-D5w Pmx 100 1 gm In Dextrose/Water 1 100ml.bag @ 100 mls/hr IVPB Q1H [facility] Rx#: [id number] Piperacillin-Tazobactam 3 200 .375 gm In Sodium Chloride 0.9% 100 ml @ 25 mls/hr IVPB Q8H [facility] Rx#: [id number] Potassium Chloride 10 meq 100 In Water For Injection 1 100ml.bag @ 100 mls/hr IVPB Q1H [facility] Rx#: [id number] Sodium Phosphate 10 mmol 375 In Sodium Chloride 0.9% 250 ml @ 125 mls/hr IVPB Q2H [facility] Rx#:[id number] Oral 240 Output: Drainage 35 50 Right Abdomen 35 50 Urine 395 645 60 Other: Voiding Method Indwelling Catheter Indwelling Catheter - Exam GENERAL: The patient is alert and oriented x3, not in any acute distress. Well developed, well nourished. HEENT: Pupils are round and equally reacting to light. EOMI. No scleral icterus. No conjunctival pallor. Normocephalic, atraumatic. No pharyngeal erythema. No thyromegaly. CARDIOVASCULAR: S1 and S2 present. No murmurs, rubs, or gallops. PULMONARY: Chest is clear to auscultation, no wheezing or crackles. -ABDOMEN: Soft, RLQ severe tendernes, nondistended, normoactive bowel sounds. No palpable organomegaly. MUSCULOSKELETAL: No joint swelling or deformity. EXTREMITIES: No cyanosis, clubbing, or pedal edema. NEUROLOGICAL: Gross neurological examination did not reveal any focal deficits. SKIN: No rashes. - Labs CBC & Chem 7: 01/17/19 05:27 01/17/19 06:27 Labs: Abnormal Lab Results - Last 24 Hours (Table) 01/17/19 01/17/19 01/17/19 Range/Units 04:50 04:50 05:27 WBC 11.7 H (3.8-10.6) k/uL RBC 2.09 L 2.87 L (4.30-5.90) m/uL Hgb 6.0 L* D 7.9 L D (13.0-17.5) gm/dL Hct 20.0 L 26.8 L (39.0-53.0) % MCHC 29.7 L 29.5 L (31.0-37.0) g/dL Lymphocytes # 0.6 L (1.0-4.8) k/uL Sodium 156 H (137-145) mmol/L Potassium 2.5 L* (3.5-5.1) mmol/L Chloride 120 H (98-107) mmol/L Carbon Dioxide 17 L (22-30) mmol/L BUN 3 L (9-20) mg/dL Creatinine 0.25 L (0.66-1.25) mg/dL Glucose 70 L (74-99) mg/dL Calcium 5.5 L* (8.4-10.2) mg/dL Phosphorus 1.7 L (2.5-4.5) mg/dL Magnesium 1.3 L (1.6-2.3) mg/dL Total Protein (6.3-8.2) g/dL Albumin (3.5-5.0) g/dL 01/17/19 Range/Units 06:27 WBC (3.8-10.6) k/uL RBC (4.30-5.90) m/uL Hgb (13.0-17.5) gm/dL Hct (39.0-53.0) % MCHC (31.0-37.0) g/dL Lymphocytes # (1.0-4.8) k/uL Sodium (137-145) mmol/L Potassium (3.5-5.1) mmol/L Chloride (98-107) mmol/L Carbon Dioxide (22-30) mmol/L BUN 5 L (9-20) mg/dL Creatinine 0.46 L (0.66-1.25) mg/dL Glucose (74-99) mg/dL Calcium 7.9 L (8.4-10.2) mg/dL Phosphorus (2.5-4.5) mg/dL Magnesium (1.6-2.3) mg/dL Total Protein 5.1 L (6.3-8.2) g/dL Albumin 2.1 L (3.5-5.0) g/dL Microbiology - Last 24 Hours (Table) 01/14/19 15:42 Anaerobic Culture - Final Buttock Anaerobic Gm Negative Bacilli 01/12/19 21:50 Blood Culture - Preliminary Blood No Growth after 96 hours 01/14/19 15:42 Gram Stain - Final Buttock Wound Culture - Final Escherichia coli Assessment and Plan Assessment: cecal mass suspicous for cancer Perforated bowel with lateral abdominal abscess Exploratory laparotomy with drainage abdominal wall abscess and right colectomy Septic shock, secondary to above, status post extubation h/o coronoary artery disease essential HTN. Plan: this is a pleasant 73 yo M who presents with abd mass and abscess, continue with anibiotic , and iv fluids, and pain managment , surgical consult is appreciated and plan for surgical intervention , ID team has been consulted as well Labs and medication were reviewed.. Continue same treatment. Continue with symptomatic treatment. Resume home medication. Monitor lytes and vitals. DVT and GI prophylaxis. Further recommendations of the clinical course of the patient DVT prophylaxis: Subcutaneous heparin GI Prophylaxis: protonix Prognosis is guarded
[2019-01-18] MEDS: PIPERACILLIN-TAZOBACTAM 3.375 GM in SODIUM CHLORIDE 0.9% 100 ML IVPB SCH ×3 (03:20→20:45)
[2019-01-18] MEDS: MORPHINE SULFATE 4 MG/ML SYRINGE IVP PRN ×4 (03:20→22:33)
[2019-01-18] MEDS: DEXTROSE 5%-0.45% NACL 1,000 ML IV SCH ×4 (03:27→20:38)
[2019-01-18 05:12] LABS: Basophils % (A) 0 %; Eosinophils # (A) 0.1 k/uL (0-0.7); Eosinophils % (A) 1 %; HGB 7.8 gm/dL (13.0-17.5); Hypochromasia Marked; Lymphocytes # (A) 0.8 k/uL (1.0-4.8); Lymphocytes % (A) 9 %; MCH 27.9 pg (25.0-35.0); MCHC 31.1 g/dL (31.0-37.0); MCV 89.7 fL (80.0-100.0); Mean Platelet Volume 6.2; Monocytes # (A) 0.4 k/uL (0-1.0); Monocytes % (A) 5 %; Neutrophils % (A) 83 %; Platelet Count 386 k/uL (150-450); RBC 2.79 m/uL (4.30-5.90); RDW 14.1 % (11.5-15.5); WBC 8.5 k/uL (3.8-10.6)
[2019-01-18 05:30] LABS: Anion Gap 5 mmol/L; Blood Urea Nitrogen 3 mg/dL (9-20); Calcium 7.4 mg/dL (8.4-10.2); Carbon Dioxide 28 mmol/L (22-30); Chloride 99 mmol/L (98-107); Glucose 105 mg/dL (74-99); Magnesium 1.8 mg/dL (1.6-2.3); Phosphorus 2.6 mg/dL (2.5-4.5); Potassium 3.2 mmol/L (3.5-5.1); Sodium 132 mmol/L (137-145)
[2019-01-18] MEDS: MAGNESIUM SULFATE-D5W PMX 1 GM in DEXTROSE/WATER 1 100ML.BAG IVPB SCH ×2 (05:55→06:44)
[2019-01-18] MEDS: POTASSIUM CHLORIDE 10 MEQ in WATER FOR INJECTION 1 100ML.BAG IVPB SCH ×4 (05:58→11:01)
[2019-01-18] MEDS: IPRATROPIUM-ALBUTEROL 3 ML NEB INHALATION SCH ×4 (08:14→20:39)
[2019-01-18] MEDS: HEPARIN SODIUM,PORCINE 5,000 UNIT/ML 1 ML VIAL SQ SCH ×2 (08:33→20:45)
[2019-01-18] MEDS: PANTOPRAZOLE 40 MG/10 ML VIAL IVP SCH (08:33)
--- NOTE | 2019-01-18 09:59 | P.PN ---
Subjective Progress Note Date: 01/18/19 Principal diagnosis: Acute abdominal sepsis, status post exploratory laparotomy, drainage of abdominal abscess and right colectomy, perforated cecal tumor This is a 73-year-old white male presented to the ER on 01/12/2019, complaining of right lower quadrant abdominal pain. Apparently his pain has been chronic and going on for a few months. Patient also complained of a 10 pound weight loss over the last few weeks, and he had no other complaints. Patient had no headache no blurred vision no dizziness. No nausea no vomiting, no bilateral hematemesis, he is known to have history of elevated PSA and possibly underlying prostate cancer. At any rate patient was seen by many physicians since admission,. He was seen by surgery on consultation and he was admitted to internal medicine. His other medical problems included hypertension, coronary artery disease, previous KS, degenerative joint disease, CT of the abdomen on presentation showed a cecal tumor with surrounding abscess. He was started on Zosyn, and surgery was performed today. Patient underwent exploratory laparotomy, drainage of abdominal wall abscess right colectomy. Patient was found to have perforated right sided colon cancer and abdominal wall abscess. After the surgery, patient was extubated for a brief period of time in the recovery room, however he was noted to have increased shortness of breath, and struggling to breathe on his own. Patient was reintubated by anesthesia, and waited for made for the patient be transferred to the ICU, and I was called about this consultation. Presently the patient is in the ICU on mechanical ventilation. His assist-control rate is 20 he started volume is 450 he is on a PEEP of 5 and FiO2 of 50%. ABG from earlier today showed a pO2 of 243 pCO2 of 47 pH of 7.19. Hence the patient was given bicarb and he was placed on a bicarb drip, I also recommended increasing his assist-control rate from 16-20. The rest of the labs were reviewed, he had a bit of leukocytosis with WBC count of 13.9 hemoglobin was 9. I's and basic metabolic profile were relatively unremarkable. Patient was reevaluated today on 01/15/2019, I saw him yesterday on consultation after he came back from the operating room. Patient remains on mechanical ventilation, and his ventilator settings where basically unchanged since last night.patient remains on sodium bicarb drip which I have discontinued today after reviewing the ABG. ABG this morning showed a pO2 of 162 pCO2 of 44 pH of 7.42 and this was on 50% FiO2. His CBC showed the PEEP cigar of 12.8 hemoglobin is 8.5.basic metabolic profile was noted to be normal. Chest x- rayshowed a small tiny left pleural effusion, not large enough to consider thoracentesis, felt to be reactive pleural effusion from abdominal sepsis and surgery.urine output remains marginal patient did receive over 3 L of fluids last night, and he was placed on norepinephrine presently at 10 mcg/ m.recommended 20 mg of Lasix to be given at the same time I recommended that we start waking up the patient, discontinue propofol, and I will definitely give the patient a weaning trial. I actually did, and patient was eventually placed on a pressure support of 8 and CPAP, follow-up ABG was excellent, and then I recommended extubating the patient to a nasal cannula. CPAP ABG showed a pO2 of 167 pCO2 of 41 pH of 7.45. And he was now on 40% FiO2. Patient was reevaluated today on 01/16/2019, he was extubated yesterday, and his post extubation course has been relatively uneventful. Patient is doing relatively well, however his main concern seems to be a lot of abdominal pain.seen by surgery today, and address the pain issue.patient denies any shortness of breath, no cough no wheezing.labs were reviewed potassium is a bit low being corrected as per protocol.CBC showed the PEEP cigar of 11.8 hemoglobin is 8.8.patient looks very frail, however not in any form of distress , on few liters nasal cannula.chest x-ray showed mostly mild cardiomegaly, very small tiny left pleural effusion, and minimal patchy atelectasis at the base. Incentive spirometry was ordered On 01/17/2017 patient seen in follow-up in the intensive care unit, this is postoperative day 3, post exploratory laparotomy, drainage of abdominal abscess and right colectomy. Patient was successfully extubated on 01/15/2019, currently on 3 L per nasal cannula his pulse ox is 98%, T-max is 99.4F this morning, axillary, blood pressures 94/48, sinus rhythm with a rate of 80 bPM. he was lethargic, arousable to verbal stimuli briefly, then was back asleep, only able to mumble one-word answer. Today's lab work showed white blood cell count of 11.7, hemoglobin is 7.9, electrolytes are within normal limits, B1 is 5 and creatinine was 0.46. IV fluids include D5 half-normal saline at a rate of 125 ML per hour, and 0.9 at 20 ML per hour, no other drips. Patient's epidural catheter was discontinued this morning. Denies any difficulty breathing, no abdominal discomfort, mid abdominal incision is clean dry and intact, covered with surgical dressing, right-sided EJ drain with small to moderate amount of serosanguineous output. Bowel sounds are hypoactive, no nausea or vomiting, patient is nothing by mouth currently. Urine culture on patient's buttocks showed E. coli, urine culture and blood culture no growth. Antibiotic coverage in the form of Zosyn, and the wound culture E. coli with susceptibility to Zosyn. On 01/18/2019 patient seen in follow-up in the intensive care unit, patient is awake and alert, oriented 3, much more awake and conversant today, denies any distress, denies any difficulty breathing, his postsurgical pain is under good control, he is on room air, with a pulse ox of 100%, afebrile, hemodynamically stable. Lung sounds are positive for a few limited rhonchi. IV fluids include D5 0.45 at a rate of 125 ML per hour. Lozada is in place, and patient has been nonoliguric, producing 100 275 ML per hour of clear yellow urine. Right abdominal EJ drain draining small amount of serosanguineous output, abdomen is nontender, mid abdominal incision is clean dry and intact, covered with a surgical dressing, and there are hypoactive bowel sounds present. Objective - Vital Signs Vital signs: Vital Signs Temp 98.4 F 01/18/19 08:01 Pulse 85 01/18/19 09:00 Resp 13 01/18/19 09:00 BP 100/56 01/18/19 09:00 Pulse Ox 99 01/18/19 09:00 Intake & Output 01/17/19 01/18/19 01/18/19 18:59 06:59 18:59 Intake Total 2315 1825 250 Output Total 695 1105 270 Balance 1620 720 -20 Weight 76.2 kg 73.2 kg Intake: IV 2075 1825 250 Dextrose 5%-0.45% NaCl 1, 1500 1625 250 000 ml @ 125 mls/hr IV . Q8H [facility] Rx#:[id number] Magnesium Sulfate-D5w Pmx 100 1 gm In Dextrose/Water 1 100ml.bag @ 100 mls/hr IVPB Q1H [facility] Rx#: [id number] Piperacillin-Tazobactam 3 200 .375 gm In Sodium Chloride 0.9% 100 ml @ 25 mls/hr IVPB Q8H [facility] Rx#: [id number] Potassium Chloride 10 meq 100 In Water For Injection 1 100ml.bag @ 100 mls/hr IVPB Q1H [facility] Rx#: [id number] Sodium Phosphate 10 mmol 375 In Sodium Chloride 0.9% 250 ml @ 125 mls/hr IVPB Q2H [facility] Rx#:[id number] Oral 240 Output: Drainage 50 50 20 Right Abdomen 50 50 20 Urine 645 1055 250 Other: Voiding Method Indwelling Catheter Indwelling Catheter Indwelling Catheter - Exam GENERAL EXAM: Awake and alert, 73-year-old white male patient, on room air, and the pulse ox of 100%, in no acute distress HEAD: Normocephalic/atraumatic. EYES: Normal reaction of pupils, equal size. Conjunctiva pink, sclera white. NOSE: Clear with pink turbinates. THROAT: No erythema or exudates. NECK: No masses, no JVD, no thyroid enlargement, no adenopathy. CHEST: No chest wall deformity. Symmetrical expansion. LUNGS: Equal air entry with a few scattered rhonchi CVS: Regular rate and rhythm, normal S1 and S2, no gallops, no murmurs, no rubs ABDOMEN: Soft, nontender. At abdominal incision is clean dry and intact, covered with a surgical dressing, right-sided EJ drain with minimal amount of serosanguineous output. Bowel sounds are hypoactive EXTREMITIES: No clubbing, no edema, no cyanosis, 2+ pulses and upper and lower extremities. MUSCULOSKELETAL: Muscle strength and tone normal. SPINE: No scoliosis or deformity SKIN: No rashes CENTRAL NERVOUS SYSTEM: Lethargic, focal deficits, tone is normal in all 4 extremities. - Labs CBC & Chem 7: 01/18/19 04:30 01/18/19 04:30 Labs: Abnormal Lab Results - Last 24 Hours (Table) 01/18/19 01/18/19 Range/Units 04:30 04:30 RBC 2.79 L (4.30-5.90) m/uL Hgb 7.8 L (13.0-17.5) gm/dL Hct 25.0 L (39.0-53.0) % Lymphocytes # 0.8 L (1.0-4.8) k/uL Sodium 132 L (137-145) mmol/L Potassium 3.2 L (3.5-5.1) mmol/L BUN 3 L (9-20) mg/dL Creatinine 0.37 L (0.66-1.25) mg/dL Glucose 105 H (74-99) mg/dL Calcium 7.4 L (8.4-10.2) mg/dL Microbiology - Last 24 Hours (Table) 01/12/19 21:50 Blood Culture - Preliminary Blood No Growth after 120 hours 01/14/19 15:42 Anaerobic Culture - Final Buttock Anaerobic Gm Negative Bacilli Assessment and Plan Plan: Assessment: 1 status post exploratory laparotomy with drainage of abdominal wall abscess and right colectomy, postoperative day #4 2 perforated right sided colon cancer 3 abdominal wall abscess 4 acute abdominal sepsis and acute metabolic acidosis secondary to sepsis, doubt ischemic bowel, cultures positive for anaerobic gram-negative bacilli, and E. coli 5 history of underlying coronary artery disease presently stable 6 benign essential hypertension presently under control. 7 postoperative atelectasis, expected. Hence the patient will be given incentive spirometry, and hopefully try to get early ambulation and physical therapy on this patient. Plan: Continue current medical treatment, provided incentive spirometer, encourage use , deep breathing and coughing. Decreased IV fluids down to 75 ML per hour, will consider stopping the IV fluids 1 to oral intake improves. Hemodynamically patient is stable, vasopressor support, continues on Zosyn for empiric antibiotic coverage. No fever or chills, ID service is following, wound cultures showed E. coli, and anaerobic gram-negative bacilli. patient is much more awake and oriented today, conversant. From pulmonary/critical care perspective patient is stable to transfer out of the intensive care unit today to general medical floor. I performed a history & physical examination of the patient and discussed their management with my nurse practitioner, Alisha Ye. I reviewed the nurse practitioner's note and agree with the documented findings and plan of care. Lung sounds are positive for a few rhonchi. The findings and the impression was discussed with the patient. I attest to the documentation by the nurse practitioner. Time with Patient: Less than 30
--- NOTE | 2019-01-18 10:17 | US ---
EXAMINATION TYPE: US venous doppler duplex UE RT DATE OF EXAM: 01/18/2019 COMPARISON: NONE CLINICAL HISTORY: RUE swelling. Right arm swelling, exam done portable in ICU. SIDE PERFORMED: Right Grayscale, color doppler, spectral doppler imaging performed of the deep veins of the right upper ext remity. There is normal flow, compressibility and vascular waveforms. Nonspecific subcutaneous edema is noted throughout. Right Arm: Appears negative for DVT IMPRESSION: Nonspecific right upper extremity subcutaneous edema. No sonographic evidence of deep rosa ous thrombosis within the right upper extremity.
[2019-01-18] MEDS ORDERED: diphenhydrAMINE 25 MG CAP PO PRN (11:40)
--- NOTE | 2019-01-18 11:59 | P.PN ---
Subjective Progress Note Date: 01/18/19 Principal diagnosis: Ascending colon tumor Patient remains in the ICU. He apparently is waiting for about on the floor. He complains of mild pain. He is afebrile. White blood cell count slightly elevated. Hemoglobin stable. He is passing flatus. No bowel movement. Tolerating clears. Objective - Vital Signs Vital signs: Vital Signs Temp 98.4 F 01/18/19 08:01 Pulse 88 01/18/19 11:00 Resp 25 H 01/18/19 11:00 BP 126/88 01/18/19 11:00 Pulse Ox 100 01/18/19 11:00 Intake & Output 01/17/19 01/18/19 01/18/19 18:59 06:59 18:59 Intake Total 2315 1825 500 Output Total 695 1105 620 Balance 1620 720 -120 Weight 76.2 kg 73.2 kg Intake: IV 2075 1825 500 Dextrose 5%-0.45% NaCl 1, 1500 1625 500 000 ml @ 75 mls/hr IV . [id number] [facility] Rx#:[id number] Magnesium Sulfate-D5w Pmx 100 1 gm In Dextrose/Water 1 100ml.bag @ 100 mls/hr IVPB Q1H [facility] Rx#: [id number] Piperacillin-Tazobactam 3 200 .375 gm In Sodium Chloride 0.9% 100 ml @ 25 mls/hr IVPB Q8H [facility] Rx#: [id number] Potassium Chloride 10 meq 100 In Water For Injection 1 100ml.bag @ 100 mls/hr IVPB Q1H [facility] Rx#: [id number] Sodium Phosphate 10 mmol 375 In Sodium Chloride 0.9% 250 ml @ 125 mls/hr IVPB Q2H [facility] Rx#:[id number] Oral 240 Output: Drainage 50 50 20 Right Abdomen 50 50 20 Urine 645 1055 600 Other: Voiding Method Indwelling Catheter Indwelling Catheter Indwelling Catheter - Exam Abdomen: Soft, mild distention, mild diffuse tenderness, EJ drain serosanguineous - Labs CBC & Chem 7: 01/18/19 04:30 01/18/19 04:30 Labs: Abnormal Lab Results - Last 24 Hours (Table) 01/18/19 01/18/19 Range/Units 04:30 04:30 RBC 2.79 L (4.30-5.90) m/uL Hgb 7.8 L (13.0-17.5) gm/dL Hct 25.0 L (39.0-53.0) % Lymphocytes # 0.8 L (1.0-4.8) k/uL Sodium 132 L (137-145) mmol/L Potassium 3.2 L (3.5-5.1) mmol/L BUN 3 L (9-20) mg/dL Creatinine 0.37 L (0.66-1.25) mg/dL Glucose 105 H (74-99) mg/dL Calcium 7.4 L (8.4-10.2) mg/dL Microbiology - Last 24 Hours (Table) 01/12/19 21:50 Blood Culture - Preliminary Blood No Growth after 120 hours 01/14/19 15:42 Anaerobic Culture - Final Buttock Anaerobic Gm Negative Bacilli Assessment and Plan (1) Intra-abdominal abscess Narrative/Plan: Continue clear liquids. Increase activity. Await final pathology. Current Visit: Yes Status: Acute Code(s): K65.1 - PERITONEAL ABSCESS SNOMED Code(s): 44846124
[2019-01-18] MEDS: HYDROcodone/APAP 5-325MG 1 EACH TAB PO PRN (15:35)
[2019-01-18] MEDS ORDERED: FERROUS SULFATE 325 MG TAB PO SCH (17:30)
--- NOTE | 2019-01-18 22:46 | P.PN ---
Subjective this is pleasant 73 yo M with pmh of hypertension and coronary artery disease who presents with worsening abdominal pain over two months duration , the pain is in the right lower quadrant , radiating to the surrounding abdominal area and around the umbilicus, non specific in character , quite sever as per pt associated with tenderness but no change in urine or bowel habits. no chest pain of dyspnea. no fever, his bp is on low normal side, but pt deneis dizziness. he has mild leukocytosis at 13.8K, Hb 9.1 and elevated platelets. normal lytes , creatinine and liver enz. on exam he has significant abd tenderness. CT of the abd showing cecal tumor with sorrouding abscess. pt has been evaluated by surgical team and the plan for surgical intervention next day . pt is started on zosyn . 01/14/2019 Patient was lying in bed not in distress, is fully awake and alert and oriented. Still have right lower quadrant abdominal pain and tenderness. He has no nausea vomiting, is nothing by mouth now. On IV fluids 75 mg/h. Also undertaken Zosyn for her abdominal abscess. No fever. Vitas looks stable. Lap showing WBC 13.9 K, hemoglobin 9.0, platelets 479. And BMP was unremarkable. Patient is planned to have surgery today for surgical team following the patient closely 01/15/2019 Patient he got complicated surgery yesterday for his perforated right cecal mass and lateral abdominal abscess. After the surgery patient needed reintubation again and he was just her to the ICU. His blood pressure was on the low side that he needed levophed overnight. pt was doing well regarding his respiratory status , he got extubated today , he is awake and was able to take some ice chips. Vital showing respiratory rate 89, respiratory rate 10/m, blood pressure 91/63 and sat 96% on 3 L via nasal cannula. WBC 12.8 K. BX 7.4, pCO2 167 and pO2 29. Creatinine 0.5. Culture results are still pending. Chest x- ray: No change in bibasilar opacity. Patient got several boluses of IV fluids for patient had low urine output. Several services are following the patient including surgery, infectious disease and pulmonary critical care. Patient remains in critical condition. 01/16/2019 Patient remains in the ICU, is a status post surgery for perforated right cecal mass and lateral abdominal abscess, postop day #2. status post extubation. He is off pressors now. He opens eyes and follow commands. His blood pressure 97/ 56, while off pressors. Leukocytosis is improving, no more fever. Wound culture still showing gram-negative bacilli, pending final results. Chest x- ray showing COPD, left pleural effusion with bibasilar atelectasis or consolidation. Is still on Zosyn. I spoke with the legal guardian Henna at [phone] and updated her with his medical condition, she confirmed to me his full code as family for concerns about his intubation status, she told me she talk to his doctor and that he had wishes before not to be on long-term admission to keep him alive which is thus different from what he needed and that she was sent to be full code . 01/17/19 pt is in ICU, lethargic, but awake , is a status post surgery for perforated right cecal mass and lateral abdominal abscess, postop day #3. status post extubation. He is off pressors now. He opens eyes and follow commands. is tolerating diet well, has gas , no bowel movement. 01/18/19 pt remains in the ICU , more stable, tolearting clear liquid diet, no bowel movement yet, started on iron pill, anticipate moving out of the icu soon . Objective - Vital Signs Vital signs: Vital Signs Temp 97.7 F 01/18/19 20:00 Pulse 94 01/18/19 20:42 Resp 16 01/18/19 20:00 BP 142/81 01/18/19 20:00 Pulse Ox 100 01/18/19 20:42 Intake & Output 01/18/19 01/18/19 01/19/19 06:59 18:59 06:59 Intake Total 1825 850 725 Output Total 1105 1340 Balance 720 -490 725 Weight 73.2 kg Intake: IV 1825 850 725 Dextrose 5%-0.45% NaCl 1, 1625 750 625 000 ml @ 75 mls/hr IV . [id number] [facility] Rx#:[id number] Piperacillin-Tazobactam 3 200 100 100 .375 gm In Sodium Chloride 0.9% 100 ml @ 25 mls/hr IVPB Q8H [facility] Rx#: [id number] Output: Drainage 50 40 Right Abdomen 50 40 Urine 1055 1300 Other: Voiding Method Indwelling Catheter Indwelling Catheter # Voids 0 - Exam GENERAL: The patient is alert and oriented x3, not in any acute distress. Well developed, well nourished. HEENT: Pupils are round and equally reacting to light. EOMI. No scleral icterus. No conjunctival pallor. Normocephalic, atraumatic. No pharyngeal erythema. No thyromegaly. CARDIOVASCULAR: S1 and S2 present. No murmurs, rubs, or gallops. PULMONARY: Chest is clear to auscultation, no wheezing or crackles. -ABDOMEN: Soft, RLQ severe tendernes, nondistended, normoactive bowel sounds. No palpable organomegaly. MUSCULOSKELETAL: No joint swelling or deformity. EXTREMITIES: No cyanosis, clubbing, or pedal edema. NEUROLOGICAL: Gross neurological examination did not reveal any focal deficits. SKIN: No rashes. - Labs CBC & Chem 7: 01/18/19 04:30 01/18/19 19:36 Labs: Abnormal Lab Results - Last 24 Hours (Table) 01/18/19 01/18/19 Range/Units 04:30 04:30 RBC 2.79 L (4.30-5.90) m/uL Hgb 7.8 L (13.0-17.5) gm/dL Hct 25.0 L (39.0-53.0) % Lymphocytes # 0.8 L (1.0-4.8) k/uL Sodium 132 L (137-145) mmol/L Potassium 3.2 L (3.5-5.1) mmol/L BUN 3 L (9-20) mg/dL Creatinine 0.37 L (0.66-1.25) mg/dL Glucose 105 H (74-99) mg/dL Calcium 7.4 L (8.4-10.2) mg/dL Microbiology - Last 24 Hours (Table) 01/12/19 21:50 Blood Culture - Preliminary Blood No Growth after 120 hours Assessment and Plan Assessment: cecal mass suspicous for cancer Perforated bowel with lateral abdominal abscess Exploratory laparotomy with drainage abdominal wall abscess and right colectomy Septic shock, secondary to above, status post extubation h/o coronoary artery disease essential HTN. Plan: this is a pleasant 73 yo M who presents with abd mass and abscess, continue with anibiotic , and iv fluids, and pain managment , surgical consult is appreciated and plan for surgical intervention , ID team has been consulted as well Labs and medication were reviewed.. Continue same treatment. Continue with symptomatic treatment. Resume home medication. Monitor lytes and vitals. DVT and GI prophylaxis. Further recommendations of the clinical course of the patient DVT prophylaxis: Subcutaneous heparin GI Prophylaxis: protonix Prognosis is guarded
[2019-01-19] MEDS: POTASSIUM CHLORIDE 10 MEQ in WATER FOR INJECTION 1 100ML.BAG IVPB SCH ×4 (00:52→11:14)
[2019-01-19] MEDS: PIPERACILLIN-TAZOBACTAM 3.375 GM in SODIUM CHLORIDE 0.9% 100 ML IVPB SCH ×3 (05:15→21:08)
[2019-01-19 05:20] LABS: Basophils % (A) 0 %; Eosinophils # (A) 0.1 k/uL (0-0.7); Eosinophils % (A) 1 %; HCT 27.4 % (39.0-53.0); HGB 8.2 gm/dL (13.0-17.5); Hypochromasia Slight; Lymphocytes # (A) 0.6 k/uL (1.0-4.8); Lymphocytes % (A) 8 %; MCH 26.5 pg (25.0-35.0); MCHC 29.9 g/dL (31.0-37.0); MCV 88.7 fL (80.0-100.0); Mean Platelet Volume 6.8; Monocytes # (A) 0.4 k/uL (0-1.0); Monocytes % (A) 6 %; Neutrophils # (A) 6.5 k/uL (1.3-7.7); Neutrophils % (A) 84 %; Platelet Count 428 k/uL (150-450); RBC 3.09 m/uL (4.30-5.90); RDW 14.6 % (11.5-15.5); WBC 7.8 k/uL (3.8-10.6)
[2019-01-19 05:28] LABS: Anion Gap 4 mmol/L; Blood Urea Nitrogen 4 mg/dL (9-20); Calcium 7.7 mg/dL (8.4-10.2); Carbon Dioxide 29 mmol/L (22-30); Chloride 99 mmol/L (98-107); Glucose 94 mg/dL (74-99); Magnesium 1.8 mg/dL (1.6-2.3); Phosphorus 2.6 mg/dL (2.5-4.5); Potassium 3.6 mmol/L (3.5-5.1); Sodium 132 mmol/L (137-145)
--- NOTE | 2019-01-19 06:14 | PN ---
PROGRESS NOTE DATE OF SERVICE: 01/18/2019. REASON FOR FOLLOWUP: Abdominal abscess. INTERVAL HISTORY: The patient is currently afebrile, has been breathing comfortably. Denies having any chest pain or shortness of breath or cough. No significant abdominal pain. No nausea, no vomiting. PHYSICAL EXAMINATION: On examination, blood pressure 131/77 with pulse of 94, temperature 97.8. He is 99% on room air. General description is an elderly male lying in bed in no distress. RESPIRATORY SYSTEM: Unlabored breathing, clear to auscultation anteriorly. HEART: S1, S2. Regular rate and rhythm. ABDOMEN: Soft, no tenderness. EXTREMITIES: No edema of the feet. LABS: Hemoglobin 7.8, white count of 8.5. BUN of 3, creatinine 0.37. Abdominal cultures reveal an E coli and anaerobic gram-negative bacilli. DIAGNOSTIC IMPRESSION AND PLAN: Patient with abdominal abscess from perforated bowel, status post right hemicolectomy. Patient at this time covered with Zosyn, to continue for now. closely. Continue supportive care. MMODL / IJN: [id number] /
[2019-01-19] MEDS: IPRATROPIUM-ALBUTEROL 3 ML NEB INHALATION SCH ×5 (08:53→20:02)
[2019-01-19] MEDS: MAGNESIUM SULFATE-D5W PMX 1 GM in DEXTROSE/WATER 1 100ML.BAG IVPB SCH ×2 (09:32→11:14)
[2019-01-19] MEDS: HEPARIN SODIUM,PORCINE 5,000 UNIT/ML 1 ML VIAL SQ SCH ×2 (09:33→21:08)
[2019-01-19] MEDS: PANTOPRAZOLE 40 MG TABLET PO SCH (09:33)
[2019-01-19] MEDS: HYDROcodone/APAP 5-325MG 1 EACH TAB PO PRN (09:55)
[2019-01-19 09:57] VITALS: BMI 21.9
--- NOTE | 2019-01-19 11:15 | P.PN ---
Subjective Progress Note Date: 01/19/19 Principal diagnosis: Ascending colon tumor Patient stable without fevers or tachycardia. Still complaining of mild abdominal discomfort. Small amount of flatus but no bowel movement. Tolerating clears. Hungry for more. EJ drain serosanguineous. White blood cell count normal. Pathology noted. Objective - Vital Signs Vital signs: Vital Signs Temp 98.2 F 01/19/19 08:00 Pulse 85 01/19/19 09:53 Resp 22 01/19/19 08:00 BP 122/76 01/19/19 08:00 Pulse Ox 98 01/19/19 08:00 Intake & Output 01/18/19 01/19/19 01/19/19 18:59 06:59 18:59 Intake Total 850 1225 Output Total 1340 20 Balance -490 1205 Weight 73.2 kg Intake: IV 850 1225 Dextrose 5%-0.45% NaCl 1, 750 1125 000 ml @ 75 mls/hr IV . [id number] [facility] Rx#:[id number] Piperacillin-Tazobactam 3 100 100 .375 gm In Sodium Chloride 0.9% 100 ml @ 25 mls/hr IVPB Q8H [facility] Rx#: [id number] Output: Drainage 40 20 Right Abdomen 40 20 Urine 1300 Other: Voiding Method Indwelling Catheter Urinal Urinal Diaper Diaper # Voids 2 - Exam Abdomen: Soft, mild tenderness, nondistended, incision clean and dry, EJ serosanguineous - Labs CBC & Chem 7: 01/19/19 04:52 01/19/19 04:52 Labs: Abnormal Lab Results - Last 24 Hours (Table) 01/19/19 01/19/19 Range/Units 04:52 04:52 RBC 3.09 L (4.30-5.90) m/uL Hgb 8.2 L (13.0-17.5) gm/dL Hct 27.4 L (39.0-53.0) % MCHC 29.9 L (31.0-37.0) g/dL Lymphocytes # 0.6 L (1.0-4.8) k/uL Sodium 132 L (137-145) mmol/L BUN 4 L (9-20) mg/dL Creatinine 0.43 L (0.66-1.25) mg/dL Calcium 7.7 L (8.4-10.2) mg/dL Microbiology - Last 24 Hours (Table) 01/12/19 21:50 Blood Culture - Final Blood No Growth after 144 hours Assessment and Plan (1) Intra-abdominal abscess Narrative/Plan: Will increase diet to full liquids. Increase activity level. Monitor bowel function and abdominal discomfort. Current Visit: Yes Status: Acute Code(s): K65.1 - PERITONEAL ABSCESS SNOMED Code(s): 34924773
--- NOTE | 2019-01-19 14:34 | P.PN ---
Subjective Progress Note Date: 01/19/19 Principal diagnosis: Acute abdominal sepsis, status post exploratory laparotomy, drainage of abdominal abscess and right colectomy, perforated cecal tumor This is a 73-year-old white male presented to the ER on 01/12/2019, complaining of right lower quadrant abdominal pain. Apparently his pain has been chronic and going on for a few months. Patient also complained of a 10 pound weight loss over the last few weeks, and he had no other complaints. Patient had no headache no blurred vision no dizziness. No nausea no vomiting, no bilateral hematemesis, he is known to have history of elevated PSA and possibly underlying prostate cancer. At any rate patient was seen by many physicians since admission,. He was seen by surgery on consultation and he was admitted to internal medicine. His other medical problems included hypertension, coronary artery disease, previous MO, degenerative joint disease, CT of the abdomen on presentation showed a cecal tumor with surrounding abscess. He was started on Zosyn, and surgery was performed today. Patient underwent exploratory laparotomy, drainage of abdominal wall abscess right colectomy. Patient was found to have perforated right sided colon cancer and abdominal wall abscess. After the surgery, patient was extubated for a brief period of time in the recovery room, however he was noted to have increased shortness of breath, and struggling to breathe on his own. Patient was reintubated by anesthesia, and waited for made for the patient be transferred to the ICU, and I was called about this consultation. Presently the patient is in the ICU on mechanical ventilation. His assist-control rate is 20 he started volume is 450 he is on a PEEP of 5 and FiO2 of 50%. ABG from earlier today showed a pO2 of 243 pCO2 of 47 pH of 7.19. Hence the patient was given bicarb and he was placed on a bicarb drip, I also recommended increasing his assist-control rate from 16-20. The rest of the labs were reviewed, he had a bit of leukocytosis with WBC count of 13.9 hemoglobin was 9. I's and basic metabolic profile were relatively unremarkable. Patient was reevaluated today on 01/15/2019, I saw him yesterday on consultation after he came back from the operating room. Patient remains on mechanical ventilation, and his ventilator settings where basically unchanged since last night.patient remains on sodium bicarb drip which I have discontinued today after reviewing the ABG. ABG this morning showed a pO2 of 162 pCO2 of 44 pH of 7.42 and this was on 50% FiO2. His CBC showed the PEEP cigar of 12.8 hemoglobin is 8.5.basic metabolic profile was noted to be normal. Chest x- rayshowed a small tiny left pleural effusion, not large enough to consider thoracentesis, felt to be reactive pleural effusion from abdominal sepsis and surgery.urine output remains marginal patient did receive over 3 L of fluids last night, and he was placed on norepinephrine presently at 10 mcg/ m.recommended 20 mg of Lasix to be given at the same time I recommended that we start waking up the patient, discontinue propofol, and I will definitely give the patient a weaning trial. I actually did, and patient was eventually placed on a pressure support of 8 and CPAP, follow-up ABG was excellent, and then I recommended extubating the patient to a nasal cannula. CPAP ABG showed a pO2 of 167 pCO2 of 41 pH of 7.45. And he was now on 40% FiO2. Patient was reevaluated today on 01/16/2019, he was extubated yesterday, and his post extubation course has been relatively uneventful. Patient is doing relatively well, however his main concern seems to be a lot of abdominal pain.seen by surgery today, and address the pain issue.patient denies any shortness of breath, no cough no wheezing.labs were reviewed potassium is a bit low being corrected as per protocol.CBC showed the PEEP cigar of 11.8 hemoglobin is 8.8.patient looks very frail, however not in any form of distress , on few liters nasal cannula.chest x-ray showed mostly mild cardiomegaly, very small tiny left pleural effusion, and minimal patchy atelectasis at the base. Incentive spirometry was ordered On 01/17/2017 patient seen in follow-up in the intensive care unit, this is postoperative day 3, post exploratory laparotomy, drainage of abdominal abscess and right colectomy. Patient was successfully extubated on 01/15/2019, currently on 3 L per nasal cannula his pulse ox is 98%, T-max is 99.4F this morning, axillary, blood pressures 94/48, sinus rhythm with a rate of 80 bPM. he was lethargic, arousable to verbal stimuli briefly, then was back asleep, only able to mumble one-word answer. Today's lab work showed white blood cell count of 11.7, hemoglobin is 7.9, electrolytes are within normal limits, B1 is 5 and creatinine was 0.46. IV fluids include D5 half-normal saline at a rate of 125 ML per hour, and 0.9 at 20 ML per hour, no other drips. Patient's epidural catheter was discontinued this morning. Denies any difficulty breathing, no abdominal discomfort, mid abdominal incision is clean dry and intact, covered with surgical dressing, right-sided EJ drain with small to moderate amount of serosanguineous output. Bowel sounds are hypoactive, no nausea or vomiting, patient is nothing by mouth currently. Urine culture on patient's buttocks showed E. coli, urine culture and blood culture no growth. Antibiotic coverage in the form of Zosyn, and the wound culture E. coli with susceptibility to Zosyn. On 01/18/2019 patient seen in follow-up in the intensive care unit, patient is awake and alert, oriented 3, much more awake and conversant today, denies any distress, denies any difficulty breathing, his postsurgical pain is under good control, he is on room air, with a pulse ox of 100%, afebrile, hemodynamically stable. Lung sounds are positive for a few limited rhonchi. IV fluids include D5 0.45 at a rate of 125 ML per hour. Lozada is in place, and patient has been nonoliguric, producing 100 275 ML per hour of clear yellow urine. Right abdominal EJ drain draining small amount of serosanguineous output, abdomen is nontender, mid abdominal incision is clean dry and intact, covered with a surgical dressing, and there are hypoactive bowel sounds present. On the 01/19/2019 patient seen in follow-up in the intensive care unit, he is awake and alert, oriented 3. He is having some tenderness on the right side of his upper abdomen, EJ drains in place, draining small amount of serosanguineous output. No nausea, no vomiting, patient has been passing gas, has not had a bowel movement. Abdomen is soft, bowel sounds are hypoactive. Patient's lab work has been reviewed, WBC 7.8, hemoglobin 8.2, sodium is 132, there was electrodes were within normal limits, BUN is 4 and creatinine 0.43. He is tolerating clear liquid diet, surgeries plan on advancing his diet to full liquids. 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 Radial margin was negative for involvement by adenocarcinoma, 7 pericolic lymph nodes were negative for involvement by adenocarcinoma. Denies any difficulty breathing, currently on room air, with a pulse ox of 98%, afebrile, hemodynamically stable. Objective - Vital Signs Vital signs: Vital Signs Temp 98.2 F 01/19/19 08:00 Pulse 88 01/19/19 12:51 Resp 22 01/19/19 08:00 BP 122/76 01/19/19 08:00 Pulse Ox 98 01/19/19 08:00 Intake & Output 01/18/19 01/19/19 01/19/19 18:59 06:59 18:59 Intake Total 850 1225 Output Total 1340 20 20 Balance -490 1205 -20 Weight 73.2 kg Intake: IV 850 1225 Dextrose 5%-0.45% NaCl 1, 750 1125 000 ml @ 75 mls/hr IV . [id number] [facility] Rx#:[id number] Piperacillin-Tazobactam 3 100 100 .375 gm In Sodium Chloride 0.9% 100 ml @ 25 mls/hr IVPB Q8H [facility] Rx#: [id number] Output: Drainage 40 20 20 Right Abdomen 40 20 20 Urine 1300 Other: Voiding Method Indwelling Catheter Urinal Urinal Diaper Diaper # Voids 2 - Exam GENERAL EXAM: Awake and alert, 73-year-old white male patient, on room air, and the pulse ox of 100%, in no acute distress HEAD: Normocephalic/atraumatic. EYES: Normal reaction of pupils, equal size. Conjunctiva pink, sclera white. NOSE: Clear with pink turbinates. THROAT: No erythema or exudates. NECK: No masses, no JVD, no thyroid enlargement, no adenopathy. CHEST: No chest wall deformity. Symmetrical expansion. LUNGS: Equal air entry with a few scattered rhonchi CVS: Regular rate and rhythm, normal S1 and S2, no gallops, no murmurs, no rubs ABDOMEN: Soft, nontender. At abdominal incision is clean dry and intact, covered with a surgical dressing, right-sided EJ drain with minimal amount of serosanguineous output. Bowel sounds are hypoactive, and there is mild abdominal tenderness over right upper abdomen EXTREMITIES: No clubbing, no edema, no cyanosis, 2+ pulses and upper and lower extremities. MUSCULOSKELETAL: Muscle strength and tone normal. SPINE: No scoliosis or deformity SKIN: No rashes CENTRAL NERVOUS SYSTEM: Lethargic, focal deficits, tone is normal in all 4 extremities. - Labs CBC & Chem 7: 01/19/19 04:52 01/19/19 04:52 Labs: Abnormal Lab Results - Last 24 Hours (Table) 01/19/19 01/19/19 Range/Units 04:52 04:52 RBC 3.09 L (4.30-5.90) m/uL Hgb 8.2 L (13.0-17.5) gm/dL Hct 27.4 L (39.0-53.0) % MCHC 29.9 L (31.0-37.0) g/dL Lymphocytes # 0.6 L (1.0-4.8) k/uL Sodium 132 L (137-145) mmol/L BUN 4 L (9-20) mg/dL Creatinine 0.43 L (0.66-1.25) mg/dL Calcium 7.7 L (8.4-10.2) mg/dL Microbiology - Last 24 Hours (Table) 01/12/19 21:50 Blood Culture - Final Blood No Growth after 144 hours Assessment and Plan Plan: Assessment: 1 status post exploratory laparotomy with drainage of abdominal wall abscess and right colectomy, postoperative day #5 2 perforated right sided colon cancer 3 abdominal wall abscess 4 acute abdominal sepsis and acute metabolic acidosis secondary to sepsis, doubt ischemic bowel, cultures positive for anaerobic gram-negative bacilli, and E. coli 5 history of underlying coronary artery disease presently stable 6 benign essential hypertension presently under control. 7 postoperative atelectasis, expected. Hence the patient will be given incentive spirometry, and hopefully try to get early ambulation and physical therapy on this patient. Plan: Continue current medical treatment, encourage deep breathing and coughing, incentive spirometry use. Ultrasound Doppler of the right upper extremity showed no evidence of DVT within the right upper arm. No difficulty breathing, no chest pain, patient is having some mild right upper quadrant abdominal discomfort, and he is passing gas, no stool, no leukocytosis, no fever or chills , surgeries following. Tolerating clear liquid diet, no nausea, no vomiting. I performed a history & physical examination of the patient and discussed their management with my nurse practitioner, Alisha Ye. I reviewed the nurse practitioner's note and agree with the documented findings and plan of care. Lung sounds are positive for a few rhonchi. The findings and the impression was discussed with the patient. I attest to the documentation by the nurse practitioner. Time with Patient: Less than 30
--- NOTE | 2019-01-19 19:38 | PN ---
PROGRESS NOTE DATE OF SERVICE: 01/19/2019. REASON FOR FOLLOWUP: Abdominal abscess. INTERVAL HISTORY: The patient is afebrile. The patient is noted by the nursing staff to be slightly confused with some agitation. No nausea or vomiting. Denies any abdominal pain. No diarrhea reported. PHYSICAL EXAMINATION: Blood pressure 107/63 with a pulse of 91, temperature 98.6. He is 99% on room air. General description is an elderly male lying in bed in no distress. RESPIRATORY SYSTEM: Unlabored breathing. Clear to auscultation anteriorly. HEART: S1, S2. Regular rate and rhythm. ABDOMEN: Soft. No tenderness. LABS: Hemoglobin 8.2, white count 7.8 with a BUN of 4, creatinine 0.43. Abdominal culture with an E coli, anaerobic gram-negative bacilli. DIAGNOSTIC IMPRESSION AND PLAN: Patient with abdominal abscess, perforated colon tumor, status post right hemicolectomy. Patient is currently covered with Zosyn; to continue for now. His white count is normal. We will monitor his clinical course closely. Continue with supportive care. MMODL / EFRENN: [id number] /
[2019-01-19] MEDS: DEXTROSE 5%-0.45% NACL 1,000 ML IV SCH (21:07)
[2019-01-20] MEDS: PIPERACILLIN-TAZOBACTAM 3.375 GM in SODIUM CHLORIDE 0.9% 100 ML IVPB SCH ×3 (04:13→21:00)
[2019-01-20 06:59] LABS: Glucose,Whole Blood 237 mg/dL (75-99)
[2019-01-20] MEDS: IPRATROPIUM-ALBUTEROL 3 ML NEB INHALATION SCH ×4 (07:10→19:47)
[2019-01-20] MEDS: PANTOPRAZOLE 40 MG TABLET PO SCH (08:32)
[2019-01-20] MEDS: HEPARIN SODIUM,PORCINE 5,000 UNIT/ML 1 ML VIAL SQ SCH ×2 (08:32→20:59)
[2019-01-20] MEDS: HYDROcodone/APAP 5-325MG 1 EACH TAB PO PRN (08:34)
--- NOTE | 2019-01-20 09:39 | CDI ---
Documentation Clarification Form Date: 01/20/2019 9:00:10 AM From: Fern Llanos RN, CCDS Admit Date: 01/12/2019 8:00:00 PM Patient Name: Servando Salamanca Visit Number: [id number] Discharge Date: ATTENTION: The Clinical Documentation Specialists (CDI) and [employer] Coding Staff appreciate your assistance in clarifying documentation. Please respond to the clarification below the line at the bottom and electronically sign. The CDI & [employer] Coding staff will review the response and follow-up if needed. Please note: Queries are made part of the Legal Health Record. If you have any questions, please contact the author of this message via ITS. Gus Ramos MD 01/14/19 Acute abdominal sepsis and acute metabolic acidosis secondary to sepsis is documented in the pulmonary consultation and their ongoing progress notes The patient presented on 01/12/19 with abdominal pain found cecal tumor with abscess formation and perforation. History/Risk Factors: myocardial Infarction, Alcohol Abuse, Current every day smoker Clinical Indicators: 73 year-old male who report right lower quadrant abdominal pain for approximately two months. He reports decreased appetite and approximately 40 pound weight loss over the past year. WBC 16.4 Lactic acid: 1.3 Blood cultures: No Growth after 144 hours Vitals signs on admission: 118/[address] abdomen and pelvis reveals complex cystic fluid collection with air in the right lateral abdomen consistent with abscess. Treatment: NPO Zosyn IV 01/14/19: Exploratory laparotomy with drainage abdominal wall abscess and right colectomy ID Consult: Patient with abdominal abscess with concern for possible perforated cecum and a sacral mass the likely organism need to be covered will be enteric gram-negative. IV Bolus: In your professional opinion, please clarify if these findings signify one of the following conditions, whether the condition is POA, and cause, if known: Condition Sepsis present on admission Sepsis not present on admission Other (specify) Unable to determine SIRS Criteria (2 or more of the following may indicate SIRS): -Temperature < 96.8F (36C) or > 101.0F (38.3C) -Heart Rate > 90 bpm -Respiratory Rate > 20 breaths/min or PaCO2 < 32 mmHg -White Blood Cell Count > 12,000 or < 4,000 cells/mm3 or > 10% bands -Lactate >2.0 mmol/L (>4.0 is equivalent to septic shock) (Last Revision: February 2018) pt unlikely has SIRS upon admission MTDD
[2019-01-20] MEDS: DEXTROSE 5%-0.45% NACL 1,000 ML IV SCH (14:45)
--- NOTE | 2019-01-20 16:09 | P.PN ---
Subjective Progress Note Date: 01/20/19 Principal diagnosis: Acute abdominal sepsis status post exploratory laparotomy, drainage of abdominal abscess of right colectomy, perforated cecal tumor. This is a 73-year-old white male presented to the ER on 01/12/2019, complaining of right lower quadrant abdominal pain. Apparently his pain has been chronic and going on for a few months. Patient also complained of a 10 pound weight loss over the last few weeks, and he had no other complaints. Patient had no headache no blurred vision no dizziness. No nausea no vomiting, no bilateral hematemesis, he is known to have history of elevated PSA and possibly underlying prostate cancer. At any rate patient was seen by many physicians since admission,. He was seen by surgery on consultation and he was admitted to internal medicine. His other medical problems included hypertension, coronary artery disease, previous [place], degenerative joint disease, CT of the abdomen on presentation showed a cecal tumor with surrounding abscess. He was started on Zosyn, and surgery was performed today. Patient underwent exploratory laparotomy, drainage of abdominal wall abscess right colectomy. Patient was found to have perforated right sided colon cancer and abdominal wall abscess. After the surgery, patient was extubated for a brief period of time in the recovery room, however he was noted to have increased shortness of breath, and struggling to breathe on his own. Patient was reintubated by anesthesia, and waited for made for the patient be transferred to the ICU, and I was called about this consultation. Presently the patient is in the ICU on mechanical ventilation. His assist-control rate is 20 he started volume is 450 he is on a PEEP of 5 and FiO2 of 50%. ABG from earlier today showed a pO2 of 243 pCO2 of 47 pH of 7.19. Hence the patient was given bicarb and he was placed on a bicarb drip, I also recommended increasing his assist-control rate from 16-20. The rest of the labs were reviewed, he had a bit of leukocytosis with WBC count of 13.9 hemoglobin was 9. I's and basic metabolic profile were relatively unremarkable. Patient was reevaluated today on 01/15/2019, I saw him yesterday on consultation after he came back from the operating room. Patient remains on mechanical ventilation, and his ventilator settings where basically unchanged since last night.patient remains on sodium bicarb drip which I have discontinued today after reviewing the ABG. ABG this morning showed a pO2 of 162 pCO2 of 44 pH of 7.42 and this was on 50% FiO2. His CBC showed the PEEP cigar of 12.8 hemoglobin is 8.5.basic metabolic profile was noted to be normal. Chest x- rayshowed a small tiny left pleural effusion, not large enough to consider thoracentesis, felt to be reactive pleural effusion from abdominal sepsis and surgery.urine output remains marginal patient did receive over 3 L of fluids last night, and he was placed on norepinephrine presently at 10 mcg/ m.recommended 20 mg of Lasix to be given at the same time I recommended that we start waking up the patient, discontinue propofol, and I will definitely give the patient a weaning trial. I actually did, and patient was eventually placed on a pressure support of 8 and CPAP, follow-up ABG was excellent, and then I recommended extubating the patient to a nasal cannula. CPAP ABG showed a pO2 of 167 pCO2 of 41 pH of 7.45. And he was now on 40% FiO2. Patient was reevaluated today on 01/16/2019, he was extubated yesterday, and his post extubation course has been relatively uneventful. Patient is doing relatively well, however his main concern seems to be a lot of abdominal pain.seen by surgery today, and address the pain issue.patient denies any shortness of breath, no cough no wheezing.labs were reviewed potassium is a bit low being corrected as per protocol.CBC showed the PEEP cigar of 11.8 hemoglobin is 8.8.patient looks very frail, however not in any form of distress , on few liters nasal cannula.chest x-ray showed mostly mild cardiomegaly, very small tiny left pleural effusion, and minimal patchy atelectasis at the base. Incentive spirometry was ordered On 01/17/2017 patient seen in follow-up in the intensive care unit, this is postoperative day 3, post exploratory laparotomy, drainage of abdominal abscess and right colectomy. Patient was successfully extubated on 01/15/2019, currently on 3 L per nasal cannula his pulse ox is 98%, T-max is 99.4F this morning, axillary, blood pressures 94/48, sinus rhythm with a rate of 80 bPM. he was lethargic, arousable to verbal stimuli briefly, then was back asleep, only able to mumble one-word answer. Today's lab work showed white blood cell count of 11.7, hemoglobin is 7.9, electrolytes are within normal limits, B1 is 5 and creatinine was 0.46. IV fluids include D5 half-normal saline at a rate of 125 ML per hour, and 0.9 at 20 ML per hour, no other drips. Patient's epidural catheter was discontinued this morning. Denies any difficulty breathing, no abdominal discomfort, mid abdominal incision is clean dry and intact, covered with surgical dressing, right-sided EJ drain with small to moderate amount of serosanguineous output. Bowel sounds are hypoactive, no nausea or vomiting, patient is nothing by mouth currently. Urine culture on patient's buttocks showed E. coli, urine culture and blood culture no growth. Antibiotic coverage in the form of Zosyn, and the wound culture E. coli with susceptibility to Zosyn. On 01/18/2019 patient seen in follow-up in the intensive care unit, patient is awake and alert, oriented 3, much more awake and conversant today, denies any distress, denies any difficulty breathing, his postsurgical pain is under good control, he is on room air, with a pulse ox of 100%, afebrile, hemodynamically stable. Lung sounds are positive for a few limited rhonchi. IV fluids include D5 0.45 at a rate of 125 ML per hour. Lozada is in place, and patient has been nonoliguric, producing 100 275 ML per hour of clear yellow urine. Right abdominal EJ drain draining small amount of serosanguineous output, abdomen is nontender, mid abdominal incision is clean dry and intact, covered with a surgical dressing, and there are hypoactive bowel sounds present. On the 01/19/2019 patient seen in follow-up in the intensive care unit, he is awake and alert, oriented 3. He is having some tenderness on the right side of his upper abdomen, EJ drains in place, draining small amount of serosanguineous output. No nausea, no vomiting, patient has been passing gas, has not had a bowel movement. Abdomen is soft, bowel sounds are hypoactive. Patient's lab work has been reviewed, WBC 7.8, hemoglobin 8.2, sodium is 132, there was electrodes were within normal limits, BUN is 4 and creatinine 0.43. He is tolerating clear liquid diet, surgeries plan on advancing his diet to full liquids. 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 Radial margin was negative for involvement by adenocarcinoma, 7 pericolic lymph nodes were negative for involvement by adenocarcinoma. Denies any difficulty breathing, currently on room air, with a pulse ox of 98%, afebrile, hemodynamically stable. Patient is seen today 01/20/2018 in follow-up on the regular medical floor. He is awake and alert in no acute distress. He is currently resting quite comfortably in bed. He did have a large bowel movement today. Abdomen is soft. Abdominal dressing dry and intact. EJ drain in place. No worsening shortness of breath, cough or congestion. Currently maintaining good O2 saturations up to 100% on room air. He is afebrile. Hemodynamically stable. Remains on DuoNeb inhalations, IV Zosyn. Objective - Vital Signs Vital signs: Vital Signs Temp 98.8 F 01/20/19 14:46 Pulse 81 01/20/19 15:50 Resp 16 01/20/19 15:50 BP 124/65 01/20/19 14:46 Pulse Ox 98 01/20/19 15:38 Intake & Output 01/19/19 01/20/19 01/20/19 18:59 06:59 18:59 Intake Total 625 Output Total 50 25 Balance 575 -25 Weight 73.2 kg 73.2 kg Intake: IV 625 Dextrose 5%-0.45% NaCl 1, 525 000 ml @ 75 mls/hr IV . [id number] [place] Rx#:[id number] Piperacillin-Tazobactam 3 100 .375 gm In Sodium Chloride 0.9% 100 ml @ 25 mls/hr IVPB Q8H [place] Rx#: [id number] Output: Drainage 50 25 Right Abdomen 50 25 Other: Voiding Method Urinal Urinal Urinal Diaper Diaper Diaper # Voids 3 3 - Exam GENERAL EXAM: Awake and alert, 73-year-old white male patient, on room air, and the pulse ox of 100%, in no acute distress HEAD: Normocephalic/atraumatic. EYES: Normal reaction of pupils, equal size. Conjunctiva pink, sclera white. NOSE: Clear with pink turbinates. THROAT: No erythema or exudates. NECK: No masses, no JVD, no thyroid enlargement, no adenopathy. CHEST: No chest wall deformity. Symmetrical expansion. LUNGS: Equal air entry with a few scattered rhonchi CVS: Regular rate and rhythm, normal S1 and S2, no gallops, no murmurs, no rubs ABDOMEN: Soft, nontender. At abdominal incision is clean dry and intact, covered with a surgical dressing, right-sided EJ drain with minimal amount of serosanguineous output. EXTREMITIES: No clubbing, no edema, no cyanosis, 2+ pulses and upper and lower extremities. MUSCULOSKELETAL: Muscle strength and tone normal. SPINE: No scoliosis or deformity SKIN: No rashes CENTRAL NERVOUS SYSTEM: Lethargic, focal deficits, tone is normal in all 4 extremities. - Labs CBC & Chem 7: 01/19/19 04:52 01/19/19 15:34 Labs: Abnormal Lab Results - Last 24 Hours (Table) 01/20/19 Range/Units 06:48 POC Glucose (mg/dL) 237 H (75-99) mg/dL Assessment and Plan Assessment: Assessment: 1 status post exploratory laparotomy with drainage of abdominal wall abscess and right colectomy, postoperative day #5 2 perforated right sided colon cancer 3 abdominal wall abscess 4 acute abdominal sepsis and acute metabolic acidosis secondary to sepsis, doubt ischemic bowel, cultures positive for anaerobic gram-negative bacilli, and E. coli 5 history of underlying coronary artery disease presently stable 6 benign essential hypertension presently under control. 7 postoperative atelectasis, expected. Hence the patient will be given incentive spirometry, and hopefully try to get early ambulation and physical therapy on this patient. Plan: The patient was seen and evaluated by Dr. Blanc. He remains stable from the pulmonary standpoint. He did have a large bowel movement today. Less abdominal pain today compared to yesterday. Continued bronchodilators. Encouraged increased use the incentive spirometer and cough and deep breathing exercises. He is currently on Zosyn. Increase his activity as tolerated. We' ll continue to follow. I, the cosigning physician, performed a history & physical examination of the patient. Lungs sounds with faint crackles in left posterior base.. Maintaining good O2 saturations in the 90s on room air. I discussed the assessment and plan of care with my nurse practitioner, Cora Dillard. I attest to the above note as dictated by her.
--- NOTE | 2019-01-20 19:41 | P.PN ---
Subjective this is pleasant 73 yo M with pmh of hypertension and coronary artery disease who presents with worsening abdominal pain over two months duration , the pain is in the right lower quadrant , radiating to the surrounding abdominal area and around the umbilicus, non specific in character , quite sever as per pt associated with tenderness but no change in urine or bowel habits. no chest pain of dyspnea. no fever, his bp is on low normal side, but pt deneis dizziness. he has mild leukocytosis at 13.8K, Hb 9.1 and elevated platelets. normal lytes , creatinine and liver enz. on exam he has significant abd tenderness. CT of the abd showing cecal tumor with sorrouding abscess. pt has been evaluated by surgical team and the plan for surgical intervention next day . pt is started on zosyn . 01/14/2019 Patient was lying in bed not in distress, is fully awake and alert and oriented. Still have right lower quadrant abdominal pain and tenderness. He has no nausea vomiting, is nothing by mouth now. On IV fluids 75 mg/h. Also undertaken Zosyn for her abdominal abscess. No fever. Vitas looks stable. Lap showing WBC 13.9 K, hemoglobin 9.0, platelets 479. And BMP was unremarkable. Patient is planned to have surgery today for surgical team following the patient closely 01/15/2019 Patient he got complicated surgery yesterday for his perforated right cecal mass and lateral abdominal abscess. After the surgery patient needed reintubation again and he was just her to the ICU. His blood pressure was on the low side that he needed levophed overnight. pt was doing well regarding his respiratory status , he got extubated today , he is awake and was able to take some ice chips. Vital showing respiratory rate 89, respiratory rate 10/m, blood pressure 91/63 and sat 96% on 3 L via nasal cannula. WBC 12.8 K. BX 7.4, pCO2 167 and pO2 29. Creatinine 0.5. Culture results are still pending. Chest x- ray: No change in bibasilar opacity. Patient got several boluses of IV fluids for patient had low urine output. Several services are following the patient including surgery, infectious disease and pulmonary critical care. Patient remains in critical condition. 01/16/2019 Patient remains in the ICU, is a status post surgery for perforated right cecal mass and lateral abdominal abscess, postop day #2. status post extubation. He is off pressors now. He opens eyes and follow commands. His blood pressure 97/ 56, while off pressors. Leukocytosis is improving, no more fever. Wound culture still showing gram-negative bacilli, pending final results. Chest x- ray showing COPD, left pleural effusion with bibasilar atelectasis or consolidation. Is still on Zosyn. I spoke with the legal guardian Henna at [phone] and updated her with his medical condition, she confirmed to me his full code as family for concerns about his intubation status, she told me she talk to his doctor and that he had wishes before not to be on long-term admission to keep him alive which is thus different from what he needed and that she was sent to be full code . 01/17/19 pt is in ICU, lethargic, but awake , is a status post surgery for perforated right cecal mass and lateral abdominal abscess, postop day #3. status post extubation. He is off pressors now. He opens eyes and follow commands. is tolerating diet well, has gas , no bowel movement. 01/18/19 pt remains in the ICU , more stable, tolearting clear liquid diet, no bowel movement yet, started on iron pill, anticipate moving out of the icu soon . 01/20/2019 Patient remains in the general medical floor who was transferred out of the ICU. Patient looks awake but lethargic. This morning he was complaining from pain and neck, was provided. I examined the wound and it looks clean and closing. The area of the abdomen surrounding the wound looks soft as well as the other abdominal examination. Patient is starting diet this morning, however he got some abdominal pain which make him more sleepy. We will switch [place] to tramadol. However patient states he is passing gases little bit although he does not have bowel movements.. No leukocytosis and patient is afebrile. Wound is growing E. coli and anaerobic gram-negative bacilli. Infectious disease and pulmonary teamS R following the patient. Objective - Vital Signs Vital signs: Vital Signs Temp 98.8 F 01/20/19 14:46 Pulse 81 01/20/19 15:50 Resp 16 01/20/19 15:50 BP 124/65 01/20/19 14:46 Pulse Ox 98 01/20/19 15:38 Intake & Output 02/01/20/19 01/21/19 06:59 18:59 06:59 Output Total 25 Balance -25 Weight 73.2 kg Output: Drainage 25 Right Abdomen 25 Other: Voiding Method Urinal Urinal Diaper Diaper # Voids 3 - Exam GENERAL: The patient is alert and oriented x3, not in any acute distress. Well developed, well nourished. HEENT: Pupils are round and equally reacting to light. EOMI. No scleral icterus. No conjunctival pallor. Normocephalic, atraumatic. No pharyngeal erythema. No thyromegaly. CARDIOVASCULAR: S1 and S2 present. No murmurs, rubs, or gallops. PULMONARY: Chest is clear to auscultation, no wheezing or crackles. -ABDOMEN: Soft, RLQ severe tendernes, nondistended, normoactive bowel sounds. No palpable organomegaly. MUSCULOSKELETAL: No joint swelling or deformity. EXTREMITIES: No cyanosis, clubbing, or pedal edema. NEUROLOGICAL: Gross neurological examination did not reveal any focal deficits. SKIN: No rashes. - Labs CBC & Chem 7: 01/19/19 04:52 01/19/19 15:34 Labs: Abnormal Lab Results - Last 24 Hours (Table) 01/20/19 Range/Units 06:48 POC Glucose (mg/dL) 237 H (75-99) mg/dL Assessment and Plan Assessment: cecal mass suspicous for cancer Perforated bowel with lateral abdominal abscess Exploratory laparotomy with drainage abdominal wall abscess and right colectomy Septic shock, secondary to above, status post extubation h/o coronoary artery disease essential HTN. Plan: this is a pleasant 73 yo M who presents with abd mass and abscess, continue with anibiotic , and iv fluids, and pain managment , surgical consult is appreciated and plan for surgical intervention , ID team has been consulted as well Labs and medication were reviewed.. Continue same treatment. Continue with symptomatic treatment. Resume home medication. Monitor lytes and vitals. DVT and GI prophylaxis. Further recommendations of the clinical course of the patient DVT prophylaxis: Subcutaneous heparin GI Prophylaxis: protonix Prognosis is guarded
--- NOTE | 2019-01-20 21:57 | PN ---
PROGRESS NOTE DATE OF SERVICE: 01/20/2019. REASON FOR FOLLOWUP: Abdominal abscess. INTERVAL HISTORY: The patient is currently afebrile, has been breathing comfortably. Denies having any chest pain or any cough. No worsening abdominal pain. No nausea, vomiting or any diarrhea reported by the nursing staff. PHYSICAL EXAMINATION: Blood pressure 124/65 with a pulse of 65, temperature 98.8. He is 100% on room air. General description is an elderly male lying in bed in no distress. RESPIRATORY SYSTEM: Unlabored breathing. Clear to auscultation anteriorly. HEART: S1, S2. Regular rate and rhythm. ABDOMEN: Soft. No tenderness. EXTREMITIES: No edema of the feet. LABS: Hemoglobin 8.2, white count 7.8. BUN of 4, creatinine 0.43. DIAGNOSTIC IMPRESSION AND PLAN: Patient with abdominal abscess from perforated colon, status post right hemicolectomy and end-to-end anastomosis. Patient is currently covered with Zosyn; to be continued for now. Hopefully finish therapy with oral Ceftin and Flagyl. The patient does show overall clinical improvement. Continue with supportive care. MMODL / IJN: [id number] /
--- NOTE | 2019-01-20 22:32 | P.PN ---
Subjective Progress Note Date: 01/20/19 Principal diagnosis: Perforated colon cancer Patient doing well today. He says his pain is much improved. Tolerating diet. Good bowel function today. Objective - Vital Signs Vital signs: Vital Signs Temp 98.8 F 01/20/19 14:46 Pulse 84 01/20/19 19:57 Resp 16 01/20/19 19:57 BP 124/65 01/20/19 14:46 Pulse Ox 98 01/20/19 15:38 Intake & Output 01/20/19 01/20/19 01/21/19 06:59 18:59 06:59 Output Total 25 Balance -25 Weight 73.2 kg Output: Drainage 25 Right Abdomen 25 Other: Voiding Method Urinal Urinal Urinal Diaper Diaper Diaper # Voids 3 - Exam Abdomen: Soft, nondistended, incision clean and dry, multiparity, EJ serosanguineous - Labs CBC & Chem 7: 01/19/19 04:52 01/19/19 15:34 Labs: Abnormal Lab Results - Last 24 Hours (Table) 01/20/19 Range/Units 06:48 POC Glucose (mg/dL) 237 H (75-99) mg/dL Assessment and Plan (1) Intra-abdominal abscess Narrative/Plan: Will increase diet this time. Continue ambulation. Keep EJ drain. Continue IV antibiotics. Current Visit: Yes Status: Acute Code(s): K65.1 - PERITONEAL ABSCESS SNOMED Code(s): 19707187
[2019-01-21] MEDS: DEXTROSE 5%-0.45% NACL 1,000 ML IV SCH ×2 (04:57→13:12)
[2019-01-21] MEDS: PIPERACILLIN-TAZOBACTAM 3.375 GM in SODIUM CHLORIDE 0.9% 100 ML IVPB SCH ×3 (04:58→19:42)
[2019-01-21] MEDS: IPRATROPIUM-ALBUTEROL 3 ML NEB INHALATION SCH ×4 (07:33→19:04)
[2019-01-21] MEDS: HEPARIN SODIUM,PORCINE 5,000 UNIT/ML 1 ML VIAL SQ SCH ×2 (09:01→21:33)
[2019-01-21] MEDS: PANTOPRAZOLE 40 MG TABLET PO SCH (09:02)
--- NOTE | 2019-01-21 14:06 | P.PN ---
Subjective Progress Note Date: 01/21/19 Principal diagnosis: Acute abdominal sepsis status post exploratory laparotomy, drainage of abdominal abscess of right colectomy, perforated cecal tumor. This is a 73-year-old white male presented to the ER on 01/12/2019, complaining of right lower quadrant abdominal pain. Apparently his pain has been chronic and going on for a few months. Patient also complained of a 10 pound weight loss over the last few weeks, and he had no other complaints. Patient had no headache no blurred vision no dizziness. No nausea no vomiting, no bilateral hematemesis, he is known to have history of elevated PSA and possibly underlying prostate cancer. At any rate patient was seen by many physicians since admission,. He was seen by surgery on consultation and he was admitted to internal medicine. His other medical problems included hypertension, coronary artery disease, previous OK, degenerative joint disease, CT of the abdomen on presentation showed a cecal tumor with surrounding abscess. He was started on Zosyn, and surgery was performed today. Patient underwent exploratory laparotomy, drainage of abdominal wall abscess right colectomy. Patient was found to have perforated right sided colon cancer and abdominal wall abscess. After the surgery, patient was extubated for a brief period of time in the recovery room, however he was noted to have increased shortness of breath, and struggling to breathe on his own. Patient was reintubated by anesthesia, and waited for made for the patient be transferred to the ICU, and I was called about this consultation. Presently the patient is in the ICU on mechanical ventilation. His assist-control rate is 20 he started volume is 450 he is on a PEEP of 5 and FiO2 of 50%. ABG from earlier today showed a pO2 of 243 pCO2 of 47 pH of 7.19. Hence the patient was given bicarb and he was placed on a bicarb drip, I also recommended increasing his assist-control rate from 16-20. The rest of the labs were reviewed, he had a bit of leukocytosis with WBC count of 13.9 hemoglobin was 9. I's and basic metabolic profile were relatively unremarkable. Patient was reevaluated today on 01/15/2019, I saw him yesterday on consultation after he came back from the operating room. Patient remains on mechanical ventilation, and his ventilator settings where basically unchanged since last night.patient remains on sodium bicarb drip which I have discontinued today after reviewing the ABG. ABG this morning showed a pO2 of 162 pCO2 of 44 pH of 7.42 and this was on 50% FiO2. His CBC showed the PEEP cigar of 12.8 hemoglobin is 8.5.basic metabolic profile was noted to be normal. Chest x- rayshowed a small tiny left pleural effusion, not large enough to consider thoracentesis, felt to be reactive pleural effusion from abdominal sepsis and surgery.urine output remains marginal patient did receive over 3 L of fluids last night, and he was placed on norepinephrine presently at 10 mcg/ m.recommended 20 mg of Lasix to be given at the same time I recommended that we start waking up the patient, discontinue propofol, and I will definitely give the patient a weaning trial. I actually did, and patient was eventually placed on a pressure support of 8 and CPAP, follow-up ABG was excellent, and then I recommended extubating the patient to a nasal cannula. CPAP ABG showed a pO2 of 167 pCO2 of 41 pH of 7.45. And he was now on 40% FiO2. Patient was reevaluated today on 01/16/2019, he was extubated yesterday, and his post extubation course has been relatively uneventful. Patient is doing relatively well, however his main concern seems to be a lot of abdominal pain.seen by surgery today, and address the pain issue.patient denies any shortness of breath, no cough no wheezing.labs were reviewed potassium is a bit low being corrected as per protocol.CBC showed the PEEP cigar of 11.8 hemoglobin is 8.8.patient looks very frail, however not in any form of distress , on few liters nasal cannula.chest x-ray showed mostly mild cardiomegaly, very small tiny left pleural effusion, and minimal patchy atelectasis at the base. Incentive spirometry was ordered On 01/17/2017 patient seen in follow-up in the intensive care unit, this is postoperative day 3, post exploratory laparotomy, drainage of abdominal abscess and right colectomy. Patient was successfully extubated on 01/15/2019, currently on 3 L per nasal cannula his pulse ox is 98%, T-max is 99.4F this morning, axillary, blood pressures 94/48, sinus rhythm with a rate of 80 bPM. he was lethargic, arousable to verbal stimuli briefly, then was back asleep, only able to mumble one-word answer. Today's lab work showed white blood cell count of 11.7, hemoglobin is 7.9, electrolytes are within normal limits, B1 is 5 and creatinine was 0.46. IV fluids include D5 half-normal saline at a rate of 125 ML per hour, and 0.9 at 20 ML per hour, no other drips. Patient's epidural catheter was discontinued this morning. Denies any difficulty breathing, no abdominal discomfort, mid abdominal incision is clean dry and intact, covered with surgical dressing, right-sided EJ drain with small to moderate amount of serosanguineous output. Bowel sounds are hypoactive, no nausea or vomiting, patient is nothing by mouth currently. Urine culture on patient's buttocks showed E. coli, urine culture and blood culture no growth. Antibiotic coverage in the form of Zosyn, and the wound culture E. coli with susceptibility to Zosyn. On 01/18/2019 patient seen in follow-up in the intensive care unit, patient is awake and alert, oriented 3, much more awake and conversant today, denies any distress, denies any difficulty breathing, his postsurgical pain is under good control, he is on room air, with a pulse ox of 100%, afebrile, hemodynamically stable. Lung sounds are positive for a few limited rhonchi. IV fluids include D5 0.45 at a rate of 125 ML per hour. Lozada is in place, and patient has been nonoliguric, producing 100 275 ML per hour of clear yellow urine. Right abdominal EJ drain draining small amount of serosanguineous output, abdomen is nontender, mid abdominal incision is clean dry and intact, covered with a surgical dressing, and there are hypoactive bowel sounds present. On the 01/19/2019 patient seen in follow-up in the intensive care unit, he is awake and alert, oriented 3. He is having some tenderness on the right side of his upper abdomen, EJ drains in place, draining small amount of serosanguineous output. No nausea, no vomiting, patient has been passing gas, has not had a bowel movement. Abdomen is soft, bowel sounds are hypoactive. Patient's lab work has been reviewed, WBC 7.8, hemoglobin 8.2, sodium is 132, there was electrodes were within normal limits, BUN is 4 and creatinine 0.43. He is tolerating clear liquid diet, surgeries plan on advancing his diet to full liquids. 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 Radial margin was negative for involvement by adenocarcinoma, 7 pericolic lymph nodes were negative for involvement by adenocarcinoma. Denies any difficulty breathing, currently on room air, with a pulse ox of 98%, afebrile, hemodynamically stable. Patient is seen today 01/20/2018 in follow-up on the regular medical floor. He is awake and alert in no acute distress. He is currently resting quite comfortably in bed. He did have a large bowel movement today. Abdomen is soft. Abdominal dressing dry and intact. EJ drain in place. No worsening shortness of breath, cough or congestion. Currently maintaining good O2 saturations up to 100% on room air. He is afebrile. Hemodynamically stable. Remains on DuoNeb inhalations, IV Zosyn. The patient is seen today 01/21/2018 in follow-up on the regular medical floor. He was up in a chair earlier this morning. He is awake and alert and doing quite well. He is tolerating his diet. He is having bowel movements. Surgical site pain is subsiding. Dressing remains dry and intact. EJ drain in place. Bowel sounds are present. No pulmonary complaints. Working well with the incentive spirometer. Continue O2 saturations in the 90s on room air. He' s been afebrile. Currently on Zosyn. Objective - Vital Signs Vital signs: Vital Signs Temp 97.3 F L 01/21/19 06:18 Pulse 70 01/21/19 06:18 Resp 17 01/21/19 06:18 BP 118/68 01/21/19 06:18 Pulse Ox 96 01/21/19 06:18 Intake & Output 01/20/19 01/21/19 01/21/19 18:59 06:59 18:59 Output Total 25 330 10 Balance -25 -330 -10 Weight 73.2 kg Output: Drainage 25 30 10 Right Abdomen 25 30 10 Urine 300 Other: Voiding Method Urinal Urinal Diaper Diaper # Voids 2 - Exam GENERAL EXAM: Awake and alert, 73-year-old white male patient, on room air, and the pulse ox of 100%, in no acute distress HEAD: Normocephalic/atraumatic. EYES: Normal reaction of pupils, equal size. Conjunctiva pink, sclera white. NOSE: Clear with pink turbinates. THROAT: No erythema or exudates. NECK: No masses, no JVD, no thyroid enlargement, no adenopathy. CHEST: No chest wall deformity. Symmetrical expansion. LUNGS: Equal air entry with a few scattered rhonchi CVS: Regular rate and rhythm, normal S1 and S2, no gallops, no murmurs, no rubs ABDOMEN: Soft, nontender. At abdominal incision is clean dry and intact, covered with a surgical dressing, right-sided EJ drain with minimal amount of serosanguineous output. EXTREMITIES: No clubbing, no edema, no cyanosis, 2+ pulses and upper and lower extremities. MUSCULOSKELETAL: Muscle strength and tone normal. SPINE: No scoliosis or deformity SKIN: No rashes CENTRAL NERVOUS SYSTEM: Lethargic, focal deficits, tone is normal in all 4 extremities. - Labs CBC & Chem 7: 01/19/19 04:52 01/19/19 15:34 Assessment and Plan Assessment: Assessment: 1 status post exploratory laparotomy with drainage of abdominal wall abscess and right colectomy, postoperative day #6 2 perforated right sided colon cancer 3 abdominal wall abscess 4 acute abdominal sepsis and acute metabolic acidosis secondary to sepsis, doubt ischemic bowel, cultures positive for anaerobic gram-negative bacilli, and E. coli 5 history of underlying coronary artery disease presently stable 6 benign essential hypertension presently under control. 7 postoperative atelectasis, expected. Hence the patient will be given incentive spirometry, and hopefully try to get early ambulation and physical therapy on this patient. Plan: The patient was seen and evaluated by Dr. Blanc. He remains stable from the pulmonary standpoint. Continued bronchodilators. Encouraged increased use the incentive spirometer and cough and deep breathing exercises. He is currently on Zosyn. Increase his activity as tolerated. We'll see the patient on as- needed basis. I, the cosigning physician, performed a history & physical examination of the patient. Lungs sounds with faint crackles in left posterior base.. Maintaining good O2 saturations in the 90s on room air. I discussed the assessment and plan of care with my nurse practitioner, Cora Dillard. I attest to the above note as dictated by her.
[2019-01-21] MEDS: traMADol 50 MG TAB PO PRN (14:21)
--- NOTE | 2019-01-21 14:25 | P.PN ---
Subjective Progress Note Date: 01/21/19 Principal diagnosis: Perforated colon cancer Patient doing well today. Denies abdominal pain. Tolerating diet. He has had additional bowel function. EJ drain serosanguineous Objective - Vital Signs Vital signs: Vital Signs Temp 97.3 F L 01/21/19 06:18 Pulse 70 01/21/19 06:18 Resp 17 01/21/19 06:18 BP 118/68 01/21/19 06:18 Pulse Ox 96 01/21/19 06:18 Intake & Output 01/20/19 01/21/19 01/21/19 18:59 06:59 18:59 Output Total 25 330 10 Balance -25 -330 -10 Weight 73.2 kg Output: Drainage 25 30 10 Right Abdomen 25 30 10 Urine 300 Other: Voiding Method Urinal Urinal Diaper Diaper # Voids 2 - Exam Abdomen: Soft, nondistended, mild tenderness, incision clean and dry - Labs CBC & Chem 7: 01/19/19 04:52 01/19/19 15:34 Assessment and Plan (1) Intra-abdominal abscess Narrative/Plan: Continue low fiber diet. Ambulate. Keep EJ drain for now. Stable for transfer. Current Visit: Yes Status: Acute Code(s): K65.1 - PERITONEAL ABSCESS SNOMED Code(s): 13052125
--- NOTE | 2019-01-21 17:13 | PN ---
PROGRESS NOTE DATE OF SERVICE: 01/21/2019 REASON FOR FOLLOWUP: Abdominal abscess from a perforated colon cancer. INTERVAL HISTORY: The patient is currently afebrile. The patient has been breathing comfortably. The patient remains slightly lethargic. Denies any chest pain or any cough. No nausea, vomiting or diarrhea reported by the nursing staff. PHYSICAL EXAMINATION: Blood pressure 118/68 with a pulse of 70, temperature 97.3. He is 96% on room air. General description is an elderly male lying in bed in no distress. RESPIRATORY SYSTEM: Unlabored breathing. Clear to auscultation anteriorly. HEART: S1, S2. Regular rate and rhythm. ABDOMEN: Soft. No tenderness. LABS: No new labs have been obtained today. His white count was normal at 7.8 on 01/19/2019. Abdominal culture grew E coli and anaerobic gram-negative bacilli. Patient is currently covered. DIAGNOSTIC IMPRESSION AND PLAN: Patient with abdominal abscess from a perforated colon cancer, status post resection of a portion of the colon and anastomosis. Patient is currently covered with Zosyn. Antibiotic will be transitions to Ceftin and Flagyl on discharge for another week to 10 days with close outpatient followup. Continue with supportive care. MMODL / IJN: [id number] /
--- NOTE | 2019-01-21 18:14 | P.CONS ---
History of Present Illness - Reason for Consult Consult date: 01/21/19 colon cancer - History of Present Illness The patient is a 73-year-old white male, who presented to the emergency room on 01/12/18, complaining of right lower quadrant abdominal pain. Apparently the patient had been having some discomfort off and on for the past couple of weeks at least. He had had small amounts of blood in the stool as well as intermittent diarrhea. However the pain had gotten significantly worse over the past 1-2 days, with associated nausea and vomiting. He had a CT of the abdomen and pelvis done which showed a fluid collection with air associated with the cecum, along with a 8.5 x 4.2 cm septated cecal mass highly suggestive of tumor. The patient therefore appeared to have perforation with abscess formation, and was taken to surgery on 01/14/19. This confirmed the findings of a cecal mass, with perforation and abscess formation, with adherence to the right pelvic sidewall. He underwent resection of this area from the pelvic sidewall and right hemicolectomy, revealing adenocarcinoma, 7.3 x 5.5 cm,with penetration through to the visceral peritoneum, and associated abscess formation. 0/17 lymph nodes were involved. The radial margin on the pelvic sidewall side was involved as expected. He has progressed somewhat slowly postop, with some confusion, generalized weakness, and slow return of bowel function. He also had a Doppler of his upper extremity for swelling with no DVT found. Consult was placed for further evaluation and recommendations The patient denied any prior history of cancers. He could not recall if he had had a prior colonoscopy done. Review of Systems Constitutional: Reports fatigue, Reports poor appetite, Reports weakness Eyes: denies blurred vision, denies pain Ears, nose, mouth and throat: Denies headache, Denies sore throat Cardiovascular: Reports decreased exercise tolerance Respiratory: Reports congestion Gastrointestinal: Reports as per HPI, Reports abdominal pain Genitourinary: Reports as per HPI Musculoskeletal: Reports muscle weakness Integumentary: Denies pruritus, Denies rash Neurological: Reports confusion (intermittent), Reports weakness Psychiatric: Reports confusion Endocrine: Reports fatigue Hematologic/Lymphatic: Reports as per HPI Past Medical History Past Medical History: Myocardial Infarction (SD), Osteoarthritis (OA) Additional Past Medical History / Comment(s): alcoholism Last Myocardial Infarction Date:: 1995 History of Any Multi-Drug Resistant Organisms: None Reported Past Surgical History: Orthopedic Surgery Additional Past Surgical History / Comment(s): left shoulder sx (shrapnel was in ) Past Anesthesia/Blood Transfusion Reactions: No Reported Reaction Additional Past Anesthesia/Blood Transfusion Reaction / Comm: no hx of transfusions Past Psychological History: No Psychological Hx Reported, PTSD Smoking Status: Current every day smoker Past Alcohol Use History: Abuse Past Drug Use History: None Reported - Past Family History Father Family Medical History: Cancer Additional Family Medical History / Comment(s): from Lung CA Mother Family Medical History: CVA/TIA, Myocardial Infarction (SD) Additional Family Medical History / Comment(s): from [place] 04/2016 Medications and Allergies Home Medications Medication Instructions Recorded Confirmed Type Acetaminophen Tab [Tylenol Tab] 325 - 650 mg PO QID PRN 01/12/19 01/12/19 History Ferrous Sulfate [Feosol] 325 mg PO DAILY@0800 01/12/19 01/12/19 History Mirtazapine 30 mg PO HS@199901/12/19 01/12/19 History Multivitamins, Thera [Multivitamin 1 tab PO DAILY@0801/12/19 01/12/19 History (formulary)] Thiamine [Vitamin B-1] 100 mg PO DAILY@0800 01/12/19 01/12/19 History Allergies Allergy/AdvReac Type Severity Reaction Status Date / Time adhesive tape Allergy Rash/Hives Verified 01/12/19 16:19 Physical Exam Vitals: Vital Signs Temp Pulse Pulse Pulse Resp BP Pulse Ox 01/21/19 15:00 98.2 F 80 16 111/65 96 01/21/19 06:18 97.3 F L 70 17 118/68 96 01/20/19 22:59 97.5 F L 86 18 120/64 96 01/20/19 19:57 84 16 01/20/19 19:47 81 16 Intake and Output 01/21/19 01/21/19 01/21/19 06:59 14:59 22:59 Intake Total 650 Output Total 30 10 Balance -30 640 Intake: Oral 650 Output: Drainage 30 10 Right Abdomen 30 10 Other: Voiding Method Urinal Diaper # Voids 2 2 # Bowel Movements 2 - Constitutional General appearance: no acute distress - EENT Eyes: EOMI, PERRLA ENT: hearing grossly normal, normal oropharynx - Neck Neck: no lymphadenopathy Thyroid: bilateral: normal size - Respiratory Respiratory: bilateral: diminished - Cardiovascular Rhythm: regular Heart sounds: normal: S1, S2 - Gastrointestinal midline incision with dilma, CDI General gastrointestinal: normal bowel sounds, soft - Integumentary Integumentary: normal - Neurologic responses and affect somewhat slow, but the patient appeared to be oriented at this time Neurologic: CNII-XII intact - Musculoskeletal Musculoskeletal: generalized weakness, strength equal bilaterally - Psychiatric Psychiatric: A&O x's 3 Results CBC & Chem 7: 01/19/19 04:52 01/19/19 15:34 Chest x-ray: report reviewed CT scan - abdomen: report reviewed CT scan - pelvis: report reviewed Venous US: report reviewed Assessment and Plan (1) Cecal cancer Narrative/Plan: The patient is status post right hemicolectomy with pathologic findings as described. The patient has a T4 tumor with obvious perforation. Therefore he would be considered high risk even though he has no lymph node involvement, with adequate lymph node sampling. Radial margin on the pelvic sidewall was involved. He was advised that in this case, adjuvant chemotherapy would definitely be recommended ideally. I would use the FOLFOX regimen, assuming his performance status is satisfactory. However he would need at least a 4 week interval Post surgery, prior to beginning any systemic therapy, assuming performance status has recovered sufficiently. CT of the abdomen and pelvis did not reveal any obvious metastatic disease. As there is concern for residual tumor adherent to the pelvic wall, in this case local radiation after completion of chemotherapy would be reasonable to consider. I will discuss with Dr. Joshua if any clips were left at the site Current Visit: Yes Status: Acute Code(s): C18.0 - MALIGNANT NEOPLASM OF CECUM SNOMED Code(s): 796630551 (2) Anemia Narrative/Plan: Most likely due to blood loss from the tumor. Iron studies will be checked and supplementation started if appropriate Current Visit: No Status: Acute Code(s): D64.9 - ANEMIA, UNSPECIFIED SNOMED Code(s): 471735832 Plan: therefore to the admitting service and other consultants for management of his multiple other medical issues
[2019-01-22] MEDS: DEXTROSE 5%-0.45% NACL 1,000 ML IV SCH ×2 (00:12→13:21)
[2019-01-22] MEDS: PIPERACILLIN-TAZOBACTAM 3.375 GM in SODIUM CHLORIDE 0.9% 100 ML IVPB SCH ×3 (04:50→20:30)
[2019-01-22] MEDS: IPRATROPIUM-ALBUTEROL 3 ML NEB INHALATION SCH ×4 (07:45→23:07)
[2019-01-22] MEDS: HEPARIN SODIUM,PORCINE 5,000 UNIT/ML 1 ML VIAL SQ SCH ×2 (09:01→22:23)
[2019-01-22] MEDS: PANTOPRAZOLE 40 MG TABLET PO SCH (09:02)
[2019-01-22] MEDS: traMADol 50 MG TAB PO PRN ×2 (09:09→14:56)
--- NOTE | 2019-01-22 09:59 | P.PN ---
Subjective Progress Note Date: 01/22/19 Principal diagnosis: Perforated colon cancer Patient doing well today. Denies pain. Tolerating diet. EJ drain output decreased. Objective - Vital Signs Vital signs: Vital Signs Temp 97.9 F 01/22/19 07:07 Pulse 74 01/22/19 07:07 Resp 16 01/22/19 07:07 BP 118/63 01/22/19 07:07 Pulse Ox 96 01/22/19 07:07 Intake & Output 01/21/19 01/22/19 01/22/19 18:59 06:59 18:59 Intake Total 1250 Output Total 25 10 20 Balance 1225 -10 -20 Intake: Oral 1250 Output: Drainage 25 10 20 Right Abdomen 25 10 20 Other: Voiding Method Urinal Urinal Diaper Diaper # Voids 1 3 # Bowel Movements 2 - Exam Abdomen: Soft, nondistended, incision clean and dry, minimal tenderness, EJ serosanguineous - Labs CBC & Chem 7: 01/19/19 04:52 01/19/19 15:34 Assessment and Plan (1) Intra-abdominal abscess Narrative/Plan: Continue diet as tolerated. Keep drain until discharge. We'll remove drain just prior to discharge. Await rehab Current Visit: Yes Status: Acute Code(s): K65.1 - PERITONEAL ABSCESS SNOMED Code(s): 57890279
--- NOTE | 2019-01-22 11:00 | P.PN ---
Subjective Progress Note Date: 01/21/19 73 yo M with pmh of hypertension and coronary artery disease who presents with worsening abdominal pain over two months duration , the pain is in the right lower quadrant , radiating to the surrounding abdominal area and around the umbilicus, non specific in character , quite sever as per pt associated with tenderness but no change in urine or bowel habits. no chest pain of dyspnea. no fever, his bp is on low normal side, but pt deneis dizziness. he has mild leukocytosis at 13.8K, Hb 9.1 and elevated platelets. normal lytes , creatinine and liver enz. on exam he has significant abd tenderness. CT of the abd showing cecal tumor with sorrouding abscess. pt has been evaluated by surgical team and the plan for surgical intervention next day . pt is started on zosyn . 01/21/2018 patient seen in follow-up on the regular medical floor. He was up in a chair earlier this morning. He is awake and alert and doing quite well. He is tolerating his diet. He is having bowel movements. Surgical site pain is subsiding. Dressing remains dry and intact. EJ drain in place. Bowel sounds are present. No pulmonary complaints. Working well with the incentive spirometer. Continue O2 saturations in the 90s on room air. He's been afebrile. Currently on Zosyn. Objective - Vital Signs Vital signs: Vital Signs Temp 97.3 F L 01/21/19 06:18 Pulse 70 01/21/19 06:18 Resp 17 01/21/19 06:18 BP 118/68 01/21/19 06:18 Pulse Ox 96 01/21/19 06:18 Intake & Output 01/20/19 01/21/19 01/21/19 18:59 06:59 18:59 Output Total 25 330 Balance -25 -330 Weight 73.2 kg Output: Drainage 25 30 Right Abdomen 25 30 Urine 300 Other: Voiding Method Urinal Urinal Diaper Diaper # Voids 2 - Exam GENERAL EXAM: Awake and alert, 73-year-old white male patient, on room air, and the pulse ox of 100%, in no acute distress HEAD: Normocephalic/atraumatic. EYES: Normal reaction of pupils, equal size. Conjunctiva pink, sclera white. NOSE: Clear with pink turbinates. THROAT: No erythema or exudates. NECK: No masses, no JVD, no thyroid enlargement, no adenopathy. CHEST: No chest wall deformity. Symmetrical expansion. LUNGS: Equal air entry with a few scattered rhonchi CVS: Regular rate and rhythm, normal S1 and S2, no gallops, no murmurs, no rubs ABDOMEN: Soft, nontender. At abdominal incision is clean dry and intact, covered with a surgical dressing, right-sided EJ drain with minimal amount of serosanguineous output. EXTREMITIES: No clubbing, no edema, no cyanosis, 2+ pulses and upper and lower extremities. MUSCULOSKELETAL: Muscle strength and tone normal. SPINE: No scoliosis or deformity SKIN: No rashes CENTRAL NERVOUS SYSTEM: Lethargic, focal deficits, tone is normal in all 4 extremities. - Labs CBC & Chem 7: 01/19/19 04:52 01/19/19 15:34 Assessment and Plan Assessment: 1. Abdominal wall abscess; - status post exploratory laparotomy with drainage of abdominal wall abscess and right colectomy, postoperative day #6 - Patient remains on low fiber diet; continue to encourage ambulation 2. 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 Abdominal wall abscess; status post laparotomy and abscess drainage - Patient remains on IV Zosyn 4. Sepsis and acute metabolic acidosis secondary to sepsis, doubt ischemic bowel , - Blood cultures positive for anaerobic gram-negative bacilli, and E. coli - Patient currently remains on IV Zosyn; IDs following and recommending transition of antibiotics to Ceftin and Flagyl at the time of discharge for a week to 10 days postdischarge 5. History of Coronary artery disease; presently stable 6. Benign essential hypertension; presently under control. 7. DVT prophylaxis; subcu heparin CODE STATUS; full code
--- NOTE | 2019-01-22 15:17 | P.PN ---
Subjective Progress Note Date: 01/22/19 Principal diagnosis: Perforated colon cancer 73 yo M with pmh of hypertension and coronary artery disease who presents with worsening abdominal pain over two months duration , the pain is in the right lower quadrant , radiating to the surrounding abdominal area and around the umbilicus, non specific in character , quite sever as per pt associated with tenderness but no change in urine or bowel habits. no chest pain of dyspnea. no fever, his bp is on low normal side, but pt deneis dizziness. he has mild leukocytosis at 13.8K, Hb 9.1 and elevated platelets. normal lytes , creatinine and liver enz. on exam he has significant abd tenderness. CT of the abd showing cecal tumor with sorrouding abscess. pt has been evaluated by surgical team and the plan for surgical intervention next day . pt is started on zosyn . 01/21/2019 patient seen in follow-up on the regular medical floor. He was up in a chair earlier this morning. He is awake and alert and doing quite well. He is tolerating his diet. He is having bowel movements. Surgical site pain is subsiding. Dressing remains dry and intact. EJ drain in place. Bowel sounds are present. No pulmonary complaints. Working well with the incentive spirometer. Continue O2 saturations in the 90s on room air. He's been afebrile. Currently on Zosyn. 01/22/2019 Patient is seen in follow-up in the room at bedside; patient has been tolerating diet well; relates he's been ambulating in hallway Vital signs are stable with a temperature of 97.9 and blood pressure 118/63 Abdomen is soft and nondistended; minimal tenderness EJ drain output is decreased; surgery is recommending to continue with the drain up until time of discharge; patient is recommended discharge to rehab Objective - Vital Signs Vital signs: Vital Signs Temp 97.9 F 01/22/19 07:07 Pulse 74 01/22/19 07:07 Resp 16 01/22/19 07:07 BP 118/63 01/22/19 07:07 Pulse Ox 96 01/22/19 07:07 Intake & Output 01/21/19 01/22/19 01/22/19 18:59 06:59 18:59 Intake Total 1250 Output Total 25 10 20 Balance 1225 -10 -20 Intake: Oral 1250 Output: Drainage 25 10 20 Right Abdomen 25 10 20 Other: Voiding Method Urinal Urinal Diaper Diaper # Voids 1 3 # Bowel Movements 2 - Exam GENERAL EXAM: Awake and alert, 73-year-old white male patient, on room air, and the pulse ox of 100%, in no acute distress HEAD: Normocephalic/atraumatic. EYES: Normal reaction of pupils, equal size. Conjunctiva pink, sclera white. NOSE: Clear with pink turbinates. THROAT: No erythema or exudates. NECK: No masses, no JVD, no thyroid enlargement, no adenopathy. CHEST: No chest wall deformity. Symmetrical expansion. LUNGS: Equal air entry with a few scattered rhonchi CVS: Regular rate and rhythm, normal S1 and S2, no gallops, no murmurs, no rubs ABDOMEN: Soft, nontender. At abdominal incision is clean dry and intact, covered with a surgical dressing, right-sided EJ drain with minimal amount of serosanguineous output. EXTREMITIES: No clubbing, no edema, no cyanosis, 2+ pulses and upper and lower extremities. MUSCULOSKELETAL: Muscle strength and tone normal. SPINE: No scoliosis or deformity SKIN: No rashes CENTRAL NERVOUS SYSTEM: Lethargic, focal deficits, tone is normal in all 4 extremities. - Labs CBC & Chem 7: 01/19/19 04:52 01/19/19 15:34 Assessment and Plan Assessment: 1. Abdominal wall abscess; - status post exploratory laparotomy with drainage of abdominal wall abscess and right colectomy, postoperative day #6 - Patient remains on low fiber diet; continue to encourage ambulation 2. 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 Abdominal wall abscess; status post laparotomy and abscess drainage - Patient remains on IV Zosyn 4. Sepsis and acute metabolic acidosis secondary to sepsis, doubt ischemic bowel , - Blood cultures positive for anaerobic gram-negative bacilli, and E. coli - Patient currently remains on IV Zosyn; IDs following and recommending transition of antibiotics to Ceftin and Flagyl at the time of discharge for a week to 10 days postdischarge 5. History of Coronary artery disease; presently stable 6. Benign essential hypertension; presently under control. 7. DVT prophylaxis; subcu heparin CODE STATUS; full code Time with Patient: Greater than 30
[2019-01-22] MEDS ORDERED: Magnesium Replacement Protocol 1 EACH MISC MISCELLANE PRN (17:05)
[2019-01-22 17:25] LABS: Iron Saturation 24.4 (15.00-50.00)
[2019-01-22] MEDS: MAGNESIUM SULFATE-D5W PMX 1 GM in DEXTROSE/WATER 1 100ML.BAG IVPB SCH ×2 (20:25→22:23)
--- NOTE | 2019-01-22 22:35 | PN ---
PROGRESS NOTE DATE OF SERVICE: 01/22/2019 REASON FOR FOLLOWUP: Abdominal abscess. INTERVAL HISTORY: The patient is currently afebrile. The patient is breathing comfortably. Denies any chest pain. No cough. He is more awake, alert. No nausea, vomiting, or any diarrhea reported. PHYSICAL EXAMINATION: Blood pressure 120/55 with a pulse of 84, temperature 98.1, he is 96% on room air. GENERAL DESCRIPTION: An elderly male lying in bed in no distress. RESPIRATORY SYSTEM: Unlabored breathing, clear to auscultation anteriorly. HEART: S1, S2. Regular rate and rhythm. ABDOMEN: Soft, no tenderness. LABS: Hemoglobin 8.8, white count 7.8. BUN 4, creatinine 0.43. DIAGNOSTIC IMPRESSION AND PLAN: Patient with abdominal abscess from perforated colon status post right hemicolectomy. Abdominal culture with E coli and anaerobic gram-negative bacilli and the patient is currently covered with the Zosyn, will continue for now with plan to finish therapy with oral Ceftin and Flagyl for short course and close outpatient followup. Continue supportive care. MMODL / IJN: [id number] /
[2019-01-23] MEDS: DEXTROSE 5%-0.45% NACL 1,000 ML IV SCH ×2 (03:54→16:19)
[2019-01-23] MEDS: PIPERACILLIN-TAZOBACTAM 3.375 GM in SODIUM CHLORIDE 0.9% 100 ML IVPB SCH ×3 (03:54→20:34)
[2019-01-23] MEDS: IPRATROPIUM-ALBUTEROL 3 ML NEB INHALATION SCH ×4 (07:13→19:39)
[2019-01-23 07:55] LABS: Basophils % (A) 0 %; Eosinophils # (A) 0.3 k/uL (0-0.7); Eosinophils % (A) 4 %; HCT 23.8 % (39.0-53.0); HGB 7.6 gm/dL (13.0-17.5); Hypochromasia Moderate; Lymphocytes % (A) 13 %; MCH 27.7 pg (25.0-35.0); MCHC 31.9 g/dL (31.0-37.0); MCV 86.9 fL (80.0-100.0); Mean Platelet Volume 6.5; Monocytes # (A) 0.5 k/uL (0-1.0); Monocytes % (A) 7 %; Neutrophils # (A) 5.6 k/uL (1.3-7.7); Neutrophils % (A) 74 %; Platelet Count 446 k/uL (150-450); RBC 2.74 m/uL (4.30-5.90); RDW 15.1 % (11.5-15.5); WBC 7.5 k/uL (3.8-10.6)
[2019-01-23 08:13] LABS: ALT 23 U/L (21-72); AST 17 U/L (17-59); Albumin 1.8 g/dL (3.5-5.0); Alkaline Phosphatase 76 U/L (38-126); Anion Gap 3 mmol/L; Blood Urea Nitrogen 4 mg/dL (9-20); Calcium 7.5 mg/dL (8.4-10.2); Carbon Dioxide 27 mmol/L (22-30); Chloride 105 mmol/L (98-107); Glucose 92 mg/dL (74-99); Magnesium 1.8 mg/dL (1.6-2.3); Potassium 3.2 mmol/L (3.5-5.1); Sodium 135 mmol/L (137-145); Total Bilirubin 0.3 mg/dL (0.2-1.3); Total Protein 4.5 g/dL (6.3-8.2)
[2019-01-23] MEDS ORDERED: Potassium Replacement Protocol 1 EACH MISC MISCELLANE PRN (08:43)
[2019-01-23] MEDS ORDERED: Magnesium Replacement Protocol 1 EACH MISC MISCELLANE PRN (08:44)
[2019-01-23] MEDS: HEPARIN SODIUM,PORCINE 5,000 UNIT/ML 1 ML VIAL SQ SCH ×2 (08:48→20:33)
[2019-01-23] MEDS: traMADol 50 MG TAB PO PRN ×2 (08:48→20:33)
[2019-01-23] MEDS: PANTOPRAZOLE 40 MG TABLET PO SCH (08:48)
[2019-01-23] MEDS: POTASSIUM CHLORIDE ER 20 MEQ TAB.ER PO SCH (08:58)
[2019-01-23] MEDS: MAGNESIUM SULFATE-D5W PMX 1 GM in DEXTROSE/WATER 1 100ML.BAG IVPB SCH ×2 (10:00→11:58)
--- NOTE | 2019-01-23 11:03 | P.PN ---
Subjective Progress Note Date: 01/23/19 Principal diagnosis: Perforated colon cancer Patient doing well today. Tolerating diet. Minimal pain. Objective - Vital Signs Vital signs: Vital Signs Temp 98.8 F 01/23/19 06:58 Pulse 78 01/23/19 07:25 Resp 16 01/23/19 06:58 BP 110/54 01/23/19 06:58 Pulse Ox 94 L 01/23/19 07:13 Intake & Output 01/22/19 01/23/19 01/23/19 18:59 06:59 18:59 Intake Total 1600 Output Total 40 50 Balance -40 1550 Intake: IV 1400 Dextrose 5%-0.45% NaCl 1, 1200 000 ml @ 75 mls/hr IV . [id number] [facility] Rx#:[id number] Piperacillin-Tazobactam 3 200 .375 gm In Sodium Chloride 0.9% 100 ml @ 25 mls/hr IVPB Q8H [facility] Rx#: [id number] Intake, IV Titration 200 Amount Magnesium Sulfate-D5w Pmx 200 1 gm In Dextrose/Water 1 100ml.bag @ 100 mls/hr IVPB Q1H [facility] Rx#: [id number] Output: Drainage 40 50 Right Abdomen 40 50 Other: Voiding Method Urinal Urinal Diaper Diaper Incontinent Incontinent # Voids 3 # Bowel Movements 0 - Exam Abdomen: Soft, nondistended, nontender, incision clean and dry - Labs CBC & Chem 7: 01/23/19 07:20 01/23/19 07:20 Labs: Abnormal Lab Results - Last 24 Hours (Table) 01/22/19 01/23/19 01/23/19 Range/Units 08:34 07:20 07:20 RBC 2.74 L (4.30-5.90) m/uL Hgb 7.6 L (13.0-17.5) gm/dL Hct 23.8 L (39.0-53.0) % Sodium 135 L (137-145) mmol/L Potassium 3.2 L (3.5-5.1) mmol/L BUN 4 L (9-20) mg/dL Creatinine 0.50 L (0.66-1.25) mg/dL Calcium 7.5 L (8.4-10.2) mg/dL Iron 41 L (65-175) ug/dL TIBC 168 L (228-460) ug/dL Total Protein 4.5 L (6.3-8.2) g/dL Albumin 1.8 L (3.5-5.0) g/dL Vitamin B12 1775.0 H (200.0-944.0) pg/mL Assessment and Plan (1) Intra-abdominal abscess Narrative/Plan: Continue diet as tolerated. Ambulate. Current Visit: Yes Status: Acute Code(s): K65.1 - PERITONEAL ABSCESS SNOMED Code(s): 88937043
[2019-01-24] MEDS: PIPERACILLIN-TAZOBACTAM 3.375 GM in SODIUM CHLORIDE 0.9% 100 ML IVPB SCH ×3 (03:15→20:26)
--- NOTE | 2019-01-24 06:34 | PN ---
PROGRESS NOTE DATE OF SERVICE: 01/23/2019. REASON FOR FOLLOWUP: Abdominal abscess from a perforated colon cancer. INTERVAL HISTORY: The patient is currently afebrile. The patient is breathing comfortably. He is more awake, alert. Denies having any chest pain. No cough. No nausea, vomiting, or any diarrhea. PHYSICAL EXAMINATION: On examination, blood pressure is 103/57 with a pulse of 84, temperature 98.9. He is 97% on room air. General description is an elderly male lying in bed in no distress. RESPIRATORY SYSTEM: Unlabored breathing, clear to auscultation anteriorly. HEART: S1, S2. Regular rate and rhythm. ABDOMEN: Soft, no tenderness. LABS: Hemoglobin 7.3, white count 7.5. BUN of 4, creatinine 0.50. DIAGNOSTIC IMPRESSION AND PLAN: Patient with abdominal abscess from a perforated colon cancer, status post resection and drainage of the abscess. The patient is currently on Zosyn. Will be transitioned to a short course of Ceftin and Flagyl on discharge to finish course of therapy. Continue supportive care. MMODL / IJN: [id number] /
[2019-01-24] MEDS: DEXTROSE 5%-0.45% NACL 1,000 ML IV SCH (06:42)
[2019-01-24] MEDS: HEPARIN SODIUM,PORCINE 5,000 UNIT/ML 1 ML VIAL SQ SCH ×2 (08:31→20:26)
[2019-01-24] MEDS: PANTOPRAZOLE 40 MG TABLET PO SCH (08:31)
[2019-01-24] MEDS: IPRATROPIUM-ALBUTEROL 3 ML NEB INHALATION SCH ×4 (09:45→20:33)
[2019-01-24] MEDS: traMADol 50 MG TAB PO PRN (09:47)
[2019-01-24 10:13] LABS: Anion Gap 3 mmol/L; Blood Urea Nitrogen 3 mg/dL (9-20); Calcium 7.9 mg/dL (8.4-10.2); Carbon Dioxide 27 mmol/L (22-30); Chloride 104 mmol/L (98-107); Glucose 93 mg/dL (74-99); Potassium 3.8 mmol/L (3.5-5.1); Sodium 134 mmol/L (137-145)
--- NOTE | 2019-01-24 12:10 | P.PN ---
Subjective Progress Note Date: 01/23/19 Principal diagnosis: Perforated colon cancer 73 yo M with pmh of hypertension and coronary artery disease who presents with worsening abdominal pain over two months duration , the pain is in the right lower quadrant , radiating to the surrounding abdominal area and around the umbilicus, non specific in character , quite sever as per pt associated with tenderness but no change in urine or bowel habits. no chest pain of dyspnea. no fever, his bp is on low normal side, but pt deneis dizziness. he has mild leukocytosis at 13.8K, Hb 9.1 and elevated platelets. normal lytes , creatinine and liver enz. on exam he has significant abd tenderness. CT of the abd showing cecal tumor with sorrouding abscess. pt has been evaluated by surgical team and the plan for surgical intervention next day . pt is started on zosyn . 01/21/2019 patient seen in follow-up on the regular medical floor. He was up in a chair earlier this morning. He is awake and alert and doing quite well. He is tolerating his diet. He is having bowel movements. Surgical site pain is subsiding. Dressing remains dry and intact. EJ drain in place. Bowel sounds are present. No pulmonary complaints. Working well with the incentive spirometer. Continue O2 saturations in the 90s on room air. He's been afebrile. Currently on Zosyn. 01/22/2019 Patient is seen in follow-up in the room at bedside; patient has been tolerating diet well; relates he's been ambulating in hallway Vital signs are stable with a temperature of 97.9 and blood pressure 118/63 Abdomen is soft and nondistended; minimal tenderness EJ drain output is decreased; surgery is recommending to continue with the drain up until time of discharge; patient is recommended discharge to rehab 01/23/2019 Patient continues to tolerate diet without; fair control of pain; vital signs stable with a temperature of 98.9 blood pressure 103/57 Labs are reviewed showing slight decline in hemoglobin from 8.2-7.6; potassium down to 3.2 this morning; we will supplement and monitor H&H; we will start patient on iron supplement Objective - Vital Signs Vital signs: Vital Signs Temp 98.9 F 01/23/19 14:08 Pulse 84 01/23/19 14:08 Resp 18 01/23/19 14:08 BP 103/57 01/23/19 14:08 Pulse Ox 97 01/23/19 14:08 Intake & Output 01/22/19 01/23/19 01/23/19 18:59 06:59 18:59 Intake Total 1600 200 Output Total 40 50 10 Balance -40 1550 190 Intake: IV 1400 Dextrose 5%-0.45% NaCl 1, 1200 000 ml @ 75 mls/hr IV . [id number] [facility] Rx#:[id number] Piperacillin-Tazobactam 3 200 .375 gm In Sodium Chloride 0.9% 100 ml @ 25 mls/hr IVPB Q8H [facility] Rx#: [id number] Intake, IV Titration 200 Amount Magnesium Sulfate-D5w Pmx 200 1 gm In Dextrose/Water 1 100ml.bag @ 100 mls/hr IVPB Q1H [facility] Rx#: [id number] Oral 200 Output: Drainage 40 50 10 Right Abdomen 40 50 10 Other: Voiding Method Urinal Urinal Urinal Diaper Diaper Diaper Incontinent Incontinent Incontinent # Voids 3 4 # Bowel Movements 0 1 - Exam GENERAL EXAM: Awake and alert, 73-year-old white male patient, on room air, and the pulse ox of 100%, in no acute distress HEAD: Normocephalic/atraumatic. EYES: Normal reaction of pupils, equal size. Conjunctiva pink, sclera white. NOSE: Clear with pink turbinates. THROAT: No erythema or exudates. NECK: No masses, no JVD, no thyroid enlargement, no adenopathy. CHEST: No chest wall deformity. Symmetrical expansion. LUNGS: Equal air entry with a few scattered rhonchi CVS: Regular rate and rhythm, normal S1 and S2, no gallops, no murmurs, no rubs ABDOMEN: Soft, nontender. At abdominal incision is clean dry and intact, covered with a surgical dressing, right-sided EJ drain with minimal amount of serosanguineous output. EXTREMITIES: No clubbing, no edema, no cyanosis, 2+ pulses and upper and lower extremities. MUSCULOSKELETAL: Muscle strength and tone normal. SPINE: No scoliosis or deformity SKIN: No rashes CENTRAL NERVOUS SYSTEM: Lethargic, focal deficits, tone is normal in all 4 extremities. - Labs CBC & Chem 7: 01/23/19 07:20 01/24/19 09:42 Labs: Abnormal Lab Results - Last 24 Hours (Table) 01/22/19 01/23/19 01/23/19 Range/Units 08:34 07:20 07:20 RBC 2.74 L (4.30-5.90) m/uL Hgb 7.6 L (13.0-17.5) gm/dL Hct 23.8 L (39.0-53.0) % Sodium 135 L (137-145) mmol/L Potassium 3.2 L (3.5-5.1) mmol/L BUN 4 L (9-20) mg/dL Creatinine 0.50 L (0.66-1.25) mg/dL Calcium 7.5 L (8.4-10.2) mg/dL Iron 41 L (65-175) ug/dL TIBC 168 L (228-460) ug/dL Total Protein 4.5 L (6.3-8.2) g/dL Albumin 1.8 L (3.5-5.0) g/dL Vitamin B12 1775.0 H (200.0-944.0) pg/mL Assessment and Plan Assessment: 1. Abdominal wall abscess; - status post exploratory laparotomy with drainage of abdominal wall abscess and right colectomy, postoperative day #6 - Patient remains on low fiber diet; continue to encourage ambulation 2. 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 Abdominal wall abscess; status post laparotomy and abscess drainage - Patient remains on IV Zosyn 4. Sepsis and acute metabolic acidosis secondary to sepsis, doubt ischemic bowel , - Blood cultures positive for anaerobic gram-negative bacilli, and E. coli - Patient currently remains on IV Zosyn; IDs following and recommending transition of antibiotics to Ceftin and Flagyl at the time of discharge for a week to 10 days postdischarge 5. History of Coronary artery disease; presently stable 6. Benign essential hypertension; presently under control. 7. DVT prophylaxis; subcu heparin CODE STATUS; full code Time with Patient: Greater than 30
--- NOTE | 2019-01-24 12:12 | P.PN ---
<Genesis Garcia A - Last Filed: 01/24/19 12:07> Subjective Progress Note Date: 01/24/19 CHIEF COMPLAINT: abdominal pain HISTORY OF PRESENT ILLNESS: Patient examined at the bedside. Patient is s/p exploratory laparotomy with drainage of abdominal wall abscess and right colectomy on 01/14/2018. Patient is tolerable low fiber diet. Reports passing flatus. Reports bowel movement yesterday. PHYSICAL EXAM: VITAL SIGNS: Currently stable. GENERAL: Well-developed, thin male, in no acute distress. HEENT: No sclera icterus. Extraocular movements grossly intact. Moist buccal mucosa. Head is atraumatic, normocephalic. Hears conversational speech. No nasal drainage. NECK: Supple without lymphadenopathy. CHEST: Non-labored respirations and equal bilateral excursions. CARDIOVASCULAR: Regular rate with regular rhythm. Palpable 2+ radial pulses. ABDOMEN: Soft. Nondistended. Vick to midline incision. EJ with serous drainage. MUSCULOSKELETAL: No clubbing, cyanosis or edema. NEUROLOGIC: No focal or lateralizing signs. Cranial nerves II through XII grossly intact. PSYCH: Appropriate affect. Alert and oriented to person. SKIN: Well perfused. Good skin turgor. ASSESSMENT: 1. 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 S/P exploratory laparotomy with drainage of abdominal wall abscess and right colectomy 3. Leukocytosis, resolved PLAN: 1. Continue low fiber diet 2. Discontinue EJ drain 3. Remove every other staple today Nurse practitioner note has been reviewed by physician. Signing provider agrees with the documented findings, assessment, and plan of care. Objective - Vital Signs Vital signs: Vital Signs Temp 98.6 F 01/24/19 06:34 Pulse 72 01/24/19 06:34 Resp 16 01/24/19 06:34 BP 121/62 01/24/19 06:34 Pulse Ox 95 01/24/19 06:34 Intake & Output 01/23/19 01/24/19 01/24/19 18:59 06:59 18:59 Intake Total 200 Output Total 10 710 Balance 190 -710 Weight 73.2 kg Intake: Oral 200 Output: Drainage 10 10 Right Abdomen 10 10 Urine 700 Other: Voiding Method Urinal Urinal Diaper Incontinent # Voids 4 1 # Bowel Movements 1 - Labs CBC & Chem 7: 01/23/19 07:20 01/24/19 09:42 Labs: Abnormal Lab Results - Last 24 Hours (Table) 01/24/19 Range/Units 09:42 Sodium 134 L (137-145) mmol/L BUN 3 L (9-20) mg/dL Creatinine 0.58 L (0.66-1.25) mg/dL Calcium 7.9 L (8.4-10.2) mg/dL <Ezequiel Joshua - Last Filed: 01/24/19 16:12> Subjective As above. Patient doing well. One half vick and drain removed today. Tolerating diet. Await transfer to rehab. Objective - Vital Signs Vital signs: Vital Signs Temp 98.6 F 01/24/19 06:34 Pulse 72 01/24/19 06:34 Resp 16 01/24/19 06:34 BP 121/62 01/24/19 06:34 Pulse Ox 95 01/24/19 06:34 Intake & Output 01/23/19 01/24/19 01/24/19 18:59 06:59 18:59 Intake Total 200 Output Total 10 710 Balance 190 -710 Weight 73.2 kg Intake: Oral 200 Output: Drainage 10 10 Right Abdomen 10 10 Urine 700 Other: Voiding Method Urinal Urinal Diaper Incontinent # Voids 4 1 # Bowel Movements 1 - Labs CBC & Chem 7: 01/23/19 07:20 01/24/19 09:42 Labs: Abnormal Lab Results - Last 24 Hours (Table) 01/22/19 01/24/19 Range/Units 08:34 09:42 Sodium 134 L (137-145) mmol/L BUN 3 L (9-20) mg/dL Creatinine 0.58 L (0.66-1.25) mg/dL Calcium 7.9 L (8.4-10.2) mg/dL RBC Folate 1,235 H (280 - 791) ng/mL Assessment and Plan (1) Intra-abdominal abscess Current Visit: Yes Status: Acute Code(s): K65.1 - PERITONEAL ABSCESS SNOMED Code(s): 42905607
--- NOTE | 2019-01-24 14:38 | P.DS ---
Providers Date of admission: 01/12/19 20:00 Expected date of discharge: 01/24/19 Attending physician: Agustín Gloria Consults: 01/12/19 19:59 Consult Physician Routine Consulting Provider: Ezequiel Joshua Consult Reason/Comments: abscess Do you want consulting provider notified?: Yes 01/13/19 07:58 Consult Physician Routine Consulting Provider: Aracelis Mendez Consult Reason/Comments: Colonic abscess Do you want consulting provider notified?: Yes 01/14/19 16:41 Consult Physician Stat Consulting Provider: Minerva Segundo Consult Reason/Comments: VENT AND ICU MANAGEMENT Do you want consulting provider notified?: Yes 01/21/19 12:56 Consult Physician Routine Consulting Provider: Higinio Khanna Consult Reason/Comments: CA colon Do you want consulting provider notified?: Yes Primary care physician: [facility] Hospital Course: 73 yo M with pmh of hypertension and coronary artery disease who presents with worsening abdominal pain over two months duration , the pain is in the right lower quadrant , radiating to the surrounding abdominal area and around the umbilicus, non specific in character , quite sever as per pt associated with tenderness but no change in urine or bowel habits. no chest pain of dyspnea. no fever, his bp is on low normal side, but pt deneis dizziness. he has mild leukocytosis at 13.8K, Hb 9.1 and elevated platelets. normal lytes , creatinine and liver enz. on exam he has significant abd tenderness. CT of the abd showing cecal tumor with sorrouding abscess. pt has been evaluated by surgical team and the plan for surgical intervention next day . pt is started on zosyn . 01/21/2019 patient seen in follow-up on the regular medical floor. He was up in a chair earlier this morning. He is awake and alert and doing quite well. He is tolerating his diet. He is having bowel movements. Surgical site pain is subsiding. Dressing remains dry and intact. EJ drain in place. Bowel sounds are present. No pulmonary complaints. Working well with the incentive spirometer. Continue O2 saturations in the 90s on room air. He's been afebrile. Currently on Zosyn. 01/22/2019 Patient is seen in follow-up in the room at bedside; patient has been tolerating diet well; relates he's been ambulating in hallway Vital signs are stable with a temperature of 97.9 and blood pressure 118/63 Abdomen is soft and nondistended; minimal tenderness EJ drain output is decreased; surgery is recommending to continue with the drain up until time of discharge; patient is recommended discharge to rehab 01/23/2019 Patient continues to tolerate diet without; fair control of pain; vital signs stable with a temperature of 98.9 blood pressure 103/57 Labs are reviewed showing slight decline in hemoglobin from 8.2-7.6; potassium down to 3.2 this morning; we will supplement and monitor H&H; we will start patient on iron supplement Patient is tolerating a low fiber diet; ambulating well and reports a bowel movement ; EJ drain is discontinued and every other staple was removed by surgery we will [facility] Patient Condition at Discharge: Fair Plan - Discharge Summary Discharge Rx Participant: Yes New Discharge Prescriptions: New Cefuroxime Axetil [Ceftin] 500 mg PO BID #14 tab metroNIDAZOLE [Flagyl] 500 mg PO Q8HR #21 tab Pantoprazole [Protonix] 40 mg PO AC-BRKFST #30 tablet. traMADol HCl [Ultram] 50 mg PO QID PRN #10 tab PRN Reason: Pain Continue Multivitamins, Thera [Multivitamin (formulary)] 1 tab PO DAILY@0800 Ferrous Sulfate [Feosol] 325 mg PO DAILY@0800 Acetaminophen Tab [Tylenol] 325 - 650 mg PO QID PRN PRN Reason: Fever And/ Or Pain Mirtazapine 30 mg PO HS@1999 Thiamine [Vitamin B-1] 100 mg PO DAILY@0800 Discharge Medication List Acetaminophen Tab [Tylenol] 325 - 650 mg PO QID PRN 01/12/19 [History] Ferrous Sulfate [Feosol] 325 mg PO DAILY@0800 01/12/19 [History] Mirtazapine 30 mg PO HS@199901/12/19 [History] Multivitamins, Thera [Multivitamin (formulary)] 1 tab PO DAILY@0800 01/12/19 [ History] Thiamine [Vitamin B-1] 100 mg PO DAILY@0800 01/12/19 [History] Cefuroxime Axetil [Ceftin] 500 mg PO BID #14 tab 01/24/19 [Rx] Pantoprazole [Protonix] 40 mg PO AC-BRKFST #30 tablet. 01/24/19 [Rx] metroNIDAZOLE [Flagyl] 500 mg PO Q8HR #21 tab 01/24/19 [Rx] traMADol HCl [Ultram] 50 mg PO QID PRN #10 tab 01/24/19 [Rx] Follow up Appointment(s)/Referral(s): Ezequiel Joshua MD [Medical Doctor] - 1 Week Higinio Khanna MD [STAFF PHYSICIAN] - 3 Weeks (Post op f/u to discuss treatment of cecal cancer) Aracelis Mendez MD [STAFF PHYSICIAN] - 1 Week [facility] [Primary Care Provider] - 1-2 days Activity/Diet/Wound Care/Special Instructions: every other staple removed today 01-24-2019 Remove remaining dilma on ThursdayJanuary 28. Low fiber diet Discharge Disposition: TRANSFER TO SNF/ECF
--- NOTE | 2019-01-24 15:19 | PN ---
PROGRESS NOTE DATE OF SERVICE: 01/24/2019 REASON FOR FOLLOWUP: Abdominal abscess. INTERVAL HISTORY: The patient is currently afebrile. The patient denies having any chest pain or shortness of breath or cough. No nausea, vomiting or worsening abdominal pain. PHYSICAL EXAMINATION: Blood pressure is 120/52 with a pulse of 72, temperature 98.6. He is 95% on room air. General description is an elderly male up in the chair in no distress. RESPIRATORY SYSTEM: Unlabored breathing clear to auscultation anteriorly. HEART S1, S2. Regular rate and rhythm. ABDOMEN: Soft, no tenderness. EXTREMITIES: No edema of the feet. LABS: BUN of 20, creatinine 0.5. DIAGNOSTIC IMPRESSION AND PLAN: Patient with abdominal abscess colon tumor, status post surgery. Plan at this time is to finish therapy with oral Ceftin, Flagyl for 1 week and close outpatient follow up. Continue supportive care. MMODL / IJN: [id number] /
[2019-01-25 04:49] LABS: Methylmalonic Acid 0.14 umol/L (<0.40)
[2019-01-25] MEDS: PIPERACILLIN-TAZOBACTAM 3.375 GM in SODIUM CHLORIDE 0.9% 100 ML IVPB SCH ×3 (04:49→20:24)
[2019-01-25] MEDS: IPRATROPIUM-ALBUTEROL 3 ML NEB INHALATION SCH ×4 (07:29→21:42)
[2019-01-25] MEDS: HEPARIN SODIUM,PORCINE 5,000 UNIT/ML 1 ML VIAL SQ SCH ×2 (07:35→21:03)
[2019-01-25] MEDS: PANTOPRAZOLE 40 MG TABLET PO SCH (07:35)
--- NOTE | 2019-01-25 11:12 | P.PN ---
<Genesis Garcia A - Last Filed: 01/25/19 11:09> Subjective Progress Note Date: 01/25/19 CHIEF COMPLAINT: abdominal pain HISTORY OF PRESENT ILLNESS: Patient examined at the bedside. Patient is s/p exploratory laparotomy with drainage of abdominal wall abscess and right colectomy on 01/14/2018. Patient is tolerating low fiber diet. Reports passing flatus and having BMs. EJ drain removed yesterday. Half of midline abdominal vick removed yesterday with Steri-Strips applied. PHYSICAL EXAM: VITAL SIGNS: Currently stable. GENERAL: Well-developed, thin male, in no acute distress. HEENT: No sclera icterus. Extraocular movements grossly intact. Moist buccal mucosa. Head is atraumatic, normocephalic. Hears conversational speech. No nasal drainage. NECK: Supple without lymphadenopathy. CHEST: Non-labored respirations and equal bilateral excursions. CARDIOVASCULAR: Regular rate with regular rhythm. Palpable 2+ radial pulses. ABDOMEN: Soft. Nondistended. Vick to midline incision. MUSCULOSKELETAL: No clubbing, cyanosis or edema. NEUROLOGIC: No focal or lateralizing signs. Cranial nerves II through XII grossly intact. PSYCH: Appropriate affect. Alert and oriented to person. SKIN: Well perfused. Good skin turgor. ASSESSMENT: 1. 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 S/P exploratory laparotomy with drainage of abdominal wall abscess and right colectomy 3. Leukocytosis, resolved PLAN: 1. Continue low fiber diet 2. Remove remaining vick on January 28. Steri strips to midline incision. 3. Increase activity as tolerated 4. Stable for discharge from a surgical perspective 5. Patient may follow-up with Dr. Joshua one week post discharge Nurse practitioner note has been reviewed by physician. Signing provider agrees with the documented findings, assessment, and plan of care. Objective - Vital Signs Vital signs: Vital Signs Temp 98.0 F 01/25/19 07:00 Pulse 72 01/25/19 07:00 Resp 16 01/25/19 07:00 BP 110/58 01/25/19 07:00 Pulse Ox 95 01/25/19 07:00 Intake & Output 02/25/19 02/26/19 02/26/19 18:59 06:59 18:59 Intake Total 650 Output Total 700 Balance 650 -700 Weight 73.2 kg Intake: Oral 650 Output: Urine 700 Other: # Voids 3 - Labs CBC & Chem 7: 01/23/19 07:20 01/24/19 09:42 Labs: Abnormal Lab Results - Last 24 Hours (Table) 01/22/19 Range/Units 08:34 RBC Folate 1,235 H (280 - 791) ng/mL <Ezequiel Joshua - Last Filed: 01/25/19 16:59> Subjective Patient doing well today. No new complaints. Tolerating diet. Await transfer to [facility]. Objective - Vital Signs Vital signs: Vital Signs Temp 99.4 F 01/25/19 15:00 Pulse 82 01/25/19 15:00 Resp 16 01/25/19 15:00 BP 118/54 01/25/19 15:00 Pulse Ox 98 01/25/19 15:00 Intake & Output 01/24/19 01/25/19 01/25/19 18:59 06:59 18:59 Intake Total 650 Output Total 700 Balance 650 -700 Weight 73.2 kg Intake: Oral 650 Output: Urine 700 Other: # Voids 3 3 # Bowel Movements 1 - Labs CBC & Chem 7: 01/23/19 07:20 01/24/19 09:42 Assessment and Plan (1) Intra-abdominal abscess Current Visit: Yes Status: Acute Code(s): K65.1 - PERITONEAL ABSCESS SNOMED Code(s): 23717938
--- NOTE | 2019-01-25 15:15 | P.PN ---
Progress Note - Text Progress Note Date: 01/25/19 Plan is for patient to follow up with Dr. Khanna in 3 weeks, that appointment is documented in the patient's medical record. At that time treatment options will be discussed. Encourage participation in rehabilitation. This will strengthen patient in the postoperative setting. And place him in a better position to initiate treatment. No treatment will be initiated until patient is discharged from rehabilitation. Recommend CBC monitoring.
--- NOTE | 2019-01-25 19:17 | P.PN ---
Subjective History of present illness, from records this is pleasant 73 yo M with pmh of hypertension and coronary artery disease who presents with worsening abdominal pain over two months duration , the pain is in the right lower quadrant , radiating to the surrounding abdominal area and around the umbilicus, non specific in character , quite sever as per pt associated with tenderness but no change in urine or bowel habits. no chest pain of dyspnea. no fever, his bp is on low normal side, but pt deneis dizziness. he has mild leukocytosis at 13.8K, Hb 9.1 and elevated platelets. normal lytes , creatinine and liver enz. on exam he has significant abd tenderness. CT of the abd showing cecal tumor with sorrouding abscess. pt has been evaluated by surgical team and the plan for surgical intervention next day . pt is started on zosyn . 01/14/2019 Patient was lying in bed not in distress, is fully awake and alert and oriented. Still have right lower quadrant abdominal pain and tenderness. He has no nausea vomiting, is nothing by mouth now. On IV fluids 75 mg/h. Also undertaken Zosyn for her abdominal abscess. No fever. Vitas looks stable. Lap showing WBC 13.9 K, hemoglobin 9.0, platelets 479. And BMP was unremarkable. Patient is planned to have surgery today for surgical team following the patient closely 01/15/2019 Patient he got complicated surgery yesterday for his perforated right cecal mass and lateral abdominal abscess. After the surgery patient needed reintubation again and he was just her to the ICU. His blood pressure was on the low side that he needed levophed overnight. pt was doing well regarding his respiratory status , he got extubated today , he is awake and was able to take some ice chips. Vital showing respiratory rate 89, respiratory rate 10/m, blood pressure 91/63 and sat 96% on 3 L via nasal cannula. WBC 12.8 K. BX 7.4, pCO2 167 and pO2 29. Creatinine 0.5. Culture results are still pending. Chest x- ray: No change in bibasilar opacity. Patient got several boluses of IV fluids for patient had low urine output. Several services are following the patient including surgery, infectious disease and pulmonary critical care. Patient remains in critical condition. 01/16/2019 Patient remains in the ICU, is a status post surgery for perforated right cecal mass and lateral abdominal abscess, postop day #2. status post extubation. He is off pressors now. He opens eyes and follow commands. His blood pressure 97/ 56, while off pressors. Leukocytosis is improving, no more fever. Wound culture still showing gram-negative bacilli, pending final results. Chest x- ray showing COPD, left pleural effusion with bibasilar atelectasis or consolidation. Is still on Zosyn. I spoke with the legal guardian Henna at [phone] and updated her with his medical condition, she confirmed to me his full code as family for concerns about his intubation status, she told me she talk to his doctor and that he had wishes before not to be on long-term admission to keep him alive which is thus different from what he needed and that she was sent to be full code . 01/17/19 pt is in ICU, lethargic, but awake , is a status post surgery for perforated right cecal mass and lateral abdominal abscess, postop day #3. status post extubation. He is off pressors now. He opens eyes and follow commands. is tolerating diet well, has gas , no bowel movement. 01/18/19 pt remains in the ICU , more stable, tolearting clear liquid diet, no bowel movement yet, started on iron pill, anticipate moving out of the icu soon . 01/20/2019 Patient remains in the general medical floor who was transferred out of the ICU. Patient looks awake but lethargic. This morning he was complaining from pain and neck, was provided. I examined the wound and it looks clean and closing. The area of the abdomen surrounding the wound looks soft as well as the other abdominal examination. Patient is starting diet this morning, however he got some abdominal pain which make him more sleepy. We will switch Severn to tramadol. However patient states he is passing gases little bit although he does not have bowel movements.. No leukocytosis and patient is afebrile. Wound is growing E. coli and anaerobic gram-negative bacilli. Infectious disease and pulmonary teamS R following the patient. Subjective This is a pleasant 73 years old male status post resection of perforated right colon cancer and abdominal abscess, that is been treated with antibiotics. Patient developed septic shock and went to the intensive care unit, after stabilization patient was transferred to the general medical floor. Patient currently lying in bed comfortable not in distress. Tolerating diet. Has small bowel movements which is performed this morning. His abdominal wound is closed and healing with no signs symptoms of cellulitis and abdominal pain is minimum. Patient remains a little bit lethargic which looks related to his baseline of dementia. However his clinically stable for discharge. Patient is supposed to go to assisted today however he got rejected again , pending placing in another assisted for now Oncology team evaluated the patient and recommended to start the patient on FOLFOX after 4 weeks from surgery Objective - Vital Signs Vital signs: Vital Signs Temp 99.4 F 01/25/19 15:00 Pulse 82 01/25/19 15:00 Resp 16 01/25/19 15:00 BP 118/54 01/25/19 15:00 Pulse Ox 98 01/25/19 15:00 Intake & Output 01/25/19 01/25/19 01/26/19 06:59 18:59 06:59 Output Total 700 Balance -700 Output: Urine 700 Other: # Voids 3 # Bowel Movements 1 - Exam GENERAL: The patient is alert and oriented x3, not in any acute distress. Well developed, well nourished. HEENT: Pupils are round and equally reacting to light. EOMI. No scleral icterus. No conjunctival pallor. Normocephalic, atraumatic. No pharyngeal erythema. No thyromegaly. CARDIOVASCULAR: S1 and S2 present. No murmurs, rubs, or gallops. PULMONARY: Chest is clear to auscultation, no wheezing or crackles. -ABDOMEN: Soft, right side abdominal wound is closed and healing, dilma in place. No cellulitis., nondistended, normoactive bowel sounds. No palpable organomegaly. MUSCULOSKELETAL: No joint swelling or deformity. EXTREMITIES: No cyanosis, clubbing, or pedal edema. NEUROLOGICAL: Gross neurological examination did not reveal any focal deficits. SKIN: No rashes. - Labs CBC & Chem 7: 01/23/19 07:20 01/24/19 09:42 Assessment and Plan Assessment: cecal mass . Pathology: Cecal adenocarcinoma Perforated bowel with lateral abdominal abscess, resolving. Currently patient on oral antibiotics Status post Exploratory laparotomy with drainage abdominal wall abscess and right colectomy Status post Septic shock, secondary to above, status post extubation h/o coronoary artery disease essential HTN. Plan: this is a pleasant 73 yo M who presents with right colonic adenocarcinoma mass and abdominal abscess. continue with anibiotic , patient is tolerating diet and having formed bowel movements with minimal abdominal pain and tenderness. Patient is cleared medically for discharge pending placement.. Patient will need oncology follow-up as an outpatient Other than that Labs and medication were reviewed.. Continue same treatment. Continue with symptomatic treatment. Resume home medication. Monitor lytes and vitals. DVT and GI prophylaxis. Further recommendations of the clinical course of the patient DVT prophylaxis: Subcutaneous heparin GI Prophylaxis: protonix Prognosis is guarded
--- NOTE | 2019-01-25 23:56 | PN ---
PROGRESS NOTE DATE OF SERVICE: 01/25/2019 REASON FOR FOLLOWUP: Abdominal abscess, E coli. INTERVAL HISTORY: The patient is afebrile. The patient is currently breathing comfortably. Denies having any chest pain or any cough. No worsening abdominal pain. No nausea, vomiting or any diarrhea per the nursing staff. PHYSICAL EXAMINATION: Blood pressure 113/44 with a pulse of 75, temperature 98.5. He is 96% on room air. General description is an elderly male up in the chair in no distress. RESPIRATORY SYSTEM: Unlabored breathing. Clear to auscultation anteriorly. HEART: S1, S2. Regular rate and rhythm. ABDOMEN: Soft. No tenderness. LABS: No new labs have been obtained today. DIAGNOSTIC IMPRESSION AND PLAN: Patient with abdominal abscess from a ruptured colon tumor, status post drainage of the abscess. Culture with E coli and anaerobic gram-negative bacilli, currently on Zosyn and may be able to finish therapy on oral Ceftin and Flagyl. Continue with supportive care. MMODL / IJN: [id number] /
[2019-01-26 01:03] LABS: Anisocytosis Slight; Basophils # (A) 0.1 k/uL (0-0.2); Basophils % (A) 1 %; Eosinophils # (A) 0.2 k/uL (0-0.7); Eosinophils % (A) 3 %; HCT 23.9 % (39.0-53.0); HGB 7.2 gm/dL (13.0-17.5); Hypochromasia Marked; Lymphocytes % (A) 18 %; MCH 27.1 pg (25.0-35.0); MCHC 30.2 g/dL (31.0-37.0); MCV 89.6 fL (80.0-100.0); Mean Platelet Volume 7.2; Monocytes # (A) 0.4 k/uL (0-1.0); Monocytes % (A) 7 %; Neutrophils # (A) 3.8 k/uL (1.3-7.7); Neutrophils % (A) 69 %; Platelet Count 427 k/uL (150-450); RBC 2.66 m/uL (4.30-5.90); RDW 16.4 % (11.5-15.5); WBC 5.5 k/uL (3.8-10.6)
[2019-01-26] MEDS: PIPERACILLIN-TAZOBACTAM 3.375 GM in SODIUM CHLORIDE 0.9% 100 ML IVPB SCH ×3 (07:07→20:23)
[2019-01-26] MEDS: HEPARIN SODIUM,PORCINE 5,000 UNIT/ML 1 ML VIAL SQ SCH ×2 (07:24→21:10)
[2019-01-26] MEDS: PANTOPRAZOLE 40 MG TABLET PO SCH (07:24)
[2019-01-26] MEDS: IPRATROPIUM-ALBUTEROL 3 ML NEB INHALATION SCH ×4 (07:49→21:07)
--- NOTE | 2019-01-26 16:27 | P.PN ---
Subjective History of present illness, from records this is pleasant 73 yo M with pmh of hypertension and coronary artery disease who presents with worsening abdominal pain over two months duration , the pain is in the right lower quadrant , radiating to the surrounding abdominal area and around the umbilicus, non specific in character , quite sever as per pt associated with tenderness but no change in urine or bowel habits. no chest pain of dyspnea. no fever, his bp is on low normal side, but pt deneis dizziness. he has mild leukocytosis at 13.8K, Hb 9.1 and elevated platelets. normal lytes , creatinine and liver enz. on exam he has significant abd tenderness. CT of the abd showing cecal tumor with sorrouding abscess. pt has been evaluated by surgical team and the plan for surgical intervention next day . pt is started on zosyn . 01/14/2019 Patient was lying in bed not in distress, is fully awake and alert and oriented. Still have right lower quadrant abdominal pain and tenderness. He has no nausea vomiting, is nothing by mouth now. On IV fluids 75 mg/h. Also undertaken Zosyn for her abdominal abscess. No fever. Vitas looks stable. Lap showing WBC 13.9 K, hemoglobin 9.0, platelets 479. And BMP was unremarkable. Patient is planned to have surgery today for surgical team following the patient closely 01/15/2019 Patient he got complicated surgery yesterday for his perforated right cecal mass and lateral abdominal abscess. After the surgery patient needed reintubation again and he was just her to the ICU. His blood pressure was on the low side that he needed levophed overnight. pt was doing well regarding his respiratory status , he got extubated today , he is awake and was able to take some ice chips. Vital showing respiratory rate 89, respiratory rate 10/m, blood pressure 91/63 and sat 96% on 3 L via nasal cannula. WBC 12.8 K. BX 7.4, pCO2 167 and pO2 29. Creatinine 0.5. Culture results are still pending. Chest x- ray: No change in bibasilar opacity. Patient got several boluses of IV fluids for patient had low urine output. Several services are following the patient including surgery, infectious disease and pulmonary critical care. Patient remains in critical condition. 01/16/2019 Patient remains in the ICU, is a status post surgery for perforated right cecal mass and lateral abdominal abscess, postop day #2. status post extubation. He is off pressors now. He opens eyes and follow commands. His blood pressure 97/ 56, while off pressors. Leukocytosis is improving, no more fever. Wound culture still showing gram-negative bacilli, pending final results. Chest x- ray showing COPD, left pleural effusion with bibasilar atelectasis or consolidation. Is still on Zosyn. I spoke with the legal guardian Henna at [phone] and updated her with his medical condition, she confirmed to me his full code as family for concerns about his intubation status, she told me she talk to his doctor and that he had wishes before not to be on long-term admission to keep him alive which is thus different from what he needed and that she was sent to be full code . 01/17/19 pt is in ICU, lethargic, but awake , is a status post surgery for perforated right cecal mass and lateral abdominal abscess, postop day #3. status post extubation. He is off pressors now. He opens eyes and follow commands. is tolerating diet well, has gas , no bowel movement. 01/18/19 pt remains in the ICU , more stable, tolearting clear liquid diet, no bowel movement yet, started on iron pill, anticipate moving out of the icu soon . 01/20/2019 Patient remains in the general medical floor who was transferred out of the ICU. Patient looks awake but lethargic. This morning he was complaining from pain and neck, was provided. I examined the wound and it looks clean and closing. The area of the abdomen surrounding the wound looks soft as well as the other abdominal examination. Patient is starting diet this morning, however he got some abdominal pain which make him more sleepy. We will switch [place] to tramadol. However patient states he is passing gases little bit although he does not have bowel movements.. No leukocytosis and patient is afebrile. Wound is growing E. coli and anaerobic gram-negative bacilli. Infectious disease and pulmonary teamS R following the patient. Subjective This is a pleasant 73 years old male status post resection of perforated right colon cancer and abdominal abscess, that is been treated with antibiotics. Patient developed septic shock and went to the intensive care unit, after stabilization patient was transferred to the general medical floor. Patient currently lying in bed comfortable not in distress. Tolerating diet. Has small bowel movements which is performed this morning. His abdominal wound is closed and healing with no signs symptoms of cellulitis and abdominal pain is minimum. Patient remains a little bit lethargic which looks related to his baseline of dementia. However his clinically stable for discharge. Patient is supposed to go to skilled nursing today however he got rejected again , pending placing in another skilled nursing for now Oncology team evaluated the patient and recommended to start the patient on FOLFOX after 4 weeks from surgery 01/26/2019 Patient was sitting in the chair, not in distress, still tolerating diet and has an bowel movement. I reminded the patient about his diagnosis and need to follow-up with oncologist in 3 weeks for possible chemotherapy and he verbalized understanding and acceptance. Patient is medically stable for discharge, pending placement. shortage worker the case Objective - Vital Signs Vital signs: Vital Signs Temp 98.2 F 01/26/19 15:06 Pulse 84 01/26/19 15:06 Resp 16 01/26/19 15:06 BP 100/57 01/26/19 15:06 Pulse Ox 94 L 01/26/19 15:06 Intake & Output 01/25/19 01/26/19 01/26/19 18:59 06:59 18:59 Other: # Voids 3 4 3 # Bowel Movements 1 0 - Exam GENERAL: The patient is alert and oriented x3, not in any acute distress. Well developed, well nourished. HEENT: Pupils are round and equally reacting to light. EOMI. No scleral icterus. No conjunctival pallor. Normocephalic, atraumatic. No pharyngeal erythema. No thyromegaly. CARDIOVASCULAR: S1 and S2 present. No murmurs, rubs, or gallops. PULMONARY: Chest is clear to auscultation, no wheezing or crackles. -ABDOMEN: Soft, right side abdominal wound is closed and healing, dilma in place. No cellulitis., nondistended, normoactive bowel sounds. No palpable organomegaly. MUSCULOSKELETAL: No joint swelling or deformity. EXTREMITIES: No cyanosis, clubbing, or pedal edema. NEUROLOGICAL: Gross neurological examination did not reveal any focal deficits. SKIN: No rashes. - Labs CBC & Chem 7: 01/25/19 23:56 01/24/19 09:42 Labs: Abnormal Lab Results - Last 24 Hours (Table) 01/25/19 Range/Units 23:56 RBC 2.66 L (4.30-5.90) m/uL Hgb 7.2 L (13.0-17.5) gm/dL Hct 23.9 L (39.0-53.0) % MCHC 30.2 L (31.0-37.0) g/dL RDW 16.4 H (11.5-15.5) % Assessment and Plan Assessment: cecal mass . Pathology: Cecal adenocarcinoma Perforated bowel with lateral abdominal abscess, resolving. Currently patient on oral antibiotics Status post Exploratory laparotomy with drainage abdominal wall abscess and right colectomy Status post Septic shock, secondary to above, status post extubation h/o coronoary artery disease essential HTN. Plan: this is a pleasant 73 yo M who presents with right colonic adenocarcinoma mass and abdominal abscess. continue with anibiotic , patient is tolerating diet and having formed bowel movements with minimal abdominal pain and tenderness. Patient is cleared medically for discharge pending placement.. Patient will need oncology follow-up as an outpatient Other than that Labs and medication were reviewed.. Continue same treatment. Continue with symptomatic treatment. Resume home medication. Monitor lytes and vitals. DVT and GI prophylaxis. Further recommendations of the clinical course of the patient DVT prophylaxis: Subcutaneous heparin GI Prophylaxis: protonix Prognosis is guarded
--- NOTE | 2019-01-26 17:09 | PN ---
PROGRESS NOTE DATE OF SERVICE: 01/26/2019. REASON FOR FOLLOWUP: Abdominal abscess. INTERVAL HISTORY: The patient is currently afebrile. The patient is breathing comfortably. The patient denies having any chest pain or shortness of breath or cough. No abdominal pain or any diarrhea. PHYSICAL EXAMINATION: Blood pressure is 136/66, pulse of 74, temperature 97.8. He is 99% on room air. General description is an elderly male up in the bed in no distress. RESPIRATORY SYSTEM: Unlabored breathing with decreased breath sounds at the base. No wheeze. HEART: S1, S2. Regular rate and rhythm. ABDOMEN: Soft. No tenderness. LABS: No new labs have been obtained today. DIAGNOSTIC IMPRESSION AND PLAN: Patient with abdominal abscess, status post laparotomy and drainage of the abscess and resection of a portion of the bowel. Patient seems to have shown clinical improvement. He has received of the IV Zosyn. A short course of oral Ceftin discharge. Continue with supportive care. MMODL / IJN: [id number] /
[2019-01-26] MEDS: traMADol 50 MG TAB PO PRN (21:11)
[2019-01-27 07:30] VITALS: BP 128/62; PULSE 74; RESP 18; TEMP 98
[2019-01-27] MEDS ORDERED: FERROUS SULFATE 325 MG TAB PO SCH (07:30)
[2019-01-27] MEDS: PANTOPRAZOLE 40 MG TABLET PO SCH (07:55)
[2019-01-27] MEDS: HEPARIN SODIUM,PORCINE 5,000 UNIT/ML 1 ML VIAL SQ SCH (07:56)
[2019-01-27] MEDS: IPRATROPIUM-ALBUTEROL 3 ML NEB INHALATION SCH ×2 (09:52→12:22)
[2019-01-27 10:04] LABS: Anisocytosis Slight; Basophils % (A) 0 %; Eosinophils # (A) 0.1 k/uL (0-0.7); Eosinophils % (A) 1 %; HCT 25.8 % (39.0-53.0); HGB 7.7 gm/dL (13.0-17.5); Hypochromasia Marked; Lymphocytes # (A) 1.1 k/uL (1.0-4.8); Lymphocytes % (A) 16 %; MCH 26.8 pg (25.0-35.0); MCHC 29.9 g/dL (31.0-37.0); MCV 89.7 fL (80.0-100.0); Mean Platelet Volume 6.9; Monocytes # (A) 0.5 k/uL (0-1.0); Monocytes % (A) 8 %; Neutrophils % (A) 72 %; Platelet Count 466 k/uL (150-450); RBC 2.88 m/uL (4.30-5.90); RDW 17.3 % (11.5-15.5)
--- NOTE | 2019-01-27 15:31 | PN ---
PROGRESS NOTE DATE OF SERVICE: 01/27/2019 REASON FOR FOLLOWUP: Abdominal abscess. INTERVAL HISTORY: The patient is currently afebrile. The patient is breathing comfortably. Denies having any chest pain. No shortness of breath or cough. No abdominal pain or any diarrhea. PHYSICAL EXAMINATION: Blood pressure is 128/60 with a pulse of 74, temperature 98, he is 98% on room air. General description is an elderly male, up in the bed in no distress. RESPIRATORY SYSTEM: Unlabored breathing, clear to auscultation anteriorly. HEART: S1, S2. Regular rate and rhythm. ABDOMEN: Soft, no tenderness. LABS: Hemoglobin is 7.7, white count 7.0, creatinine 0.58. DIAGNOSTIC IMPRESSION AND PLAN: Patient with abdominal abscess from a perforated colon tumor, status post resection, drainage of the abscess. Cultures with an E coli, anaerobic gram-negative for which the patient received about 2 weeks of IV antibiotic that should be more than enough. Antibiotic discontinued. Patient monitored closely off antibiotic therapy. Continue supportive care. MMODL / IJN: [id number] /
== END 2019-01-27 14:29 | DRG 329 ==
LOC: EC 15:23 → 4SSUR 20:00 → 2SICU 01-14 16:45 → 4MS4W 01-19 18:12
PROVIDERS: ADMIT Hospitalist; ATTEND Hospitalist
PROC: 0W9F0ZX Drainage of Abdominal Wall, Open Approach, Diagnostic (ICD-10-PCS; 2019-01-14)
PROC: 0BH17EZ Insertion of Endotracheal Airway into Trachea, Via Natural or Artificial Opening (ICD-10-PCS; 2019-01-14)
PROC: 5A1935Z Respiratory Ventilation, Less than 24 Consecutive Hours (ICD-10-PCS; 2019-01-14)
PROC: 0DTF0ZZ Resection of Right Large Intestine, Open Approach (ICD-10-PCS; principal; 2019-01-14 07:30)
DX: C18.0 Malignant neoplasm of cecum (principal); K65.1 Peritoneal abscess; K63.1 Perforation of intestine (nontraumatic); A41.9 Sepsis, unspecified organism; R65.21 Severe sepsis with septic shock; J96.00 Acute respiratory failure, unspecified whether with hypoxia or hypercapnia; E87.2 Acidosis; K92.1 Melena; J98.11 Atelectasis; J90 Pleural effusion, not elsewhere classified; R64 Cachexia; J44.9 Chronic obstructive pulmonary disease, unspecified; F03.90 Unspecified dementia, unspecified severity, without behavioral disturbance, psychotic disturbance, mood disturbance, and anxiety; D64.9 Anemia, unspecified; R31.9 Hematuria, unspecified; I10 Essential (primary) hypertension; F10.20 Alcohol dependence, uncomplicated; F43.10 Post-traumatic stress disorder, unspecified; I25.10 Atherosclerotic heart disease of native coronary artery without angina pectoris; M19.90 Unspecified osteoarthritis, unspecified site; I25.2 Old myocardial infarction; R32 Unspecified urinary incontinence; F17.210 Nicotine dependence, cigarettes, uncomplicated; Z71.6 Tobacco abuse counseling; Z68.21 Body mass index [BMI] 21.0-21.9, adult; Z79.899 Other long term (current) drug therapy; Z91.048 Other nonmedicinal substance allergy status; Z87.828 Personal history of other (healed) physical injury and trauma; Z80.1 Family history of malignant neoplasm of trachea, bronchus and lung; Z82.49 Family history of ischemic heart disease and other diseases of the circulatory system; Z82.3 Family history of stroke
CPT/HCPCS: 36415; 36600; 51798; 71045; 74177; 80048; 80053; 81001; 82150; 82378; 82607; 82728; 82747; 82805; 83540; 83550; 83605; 83690; 83735; 83921; 84100; 84132; 85025; 85027; 85610; 86850; 86900; 86901; 87040; 87070; 87075; 87077; 87086; 87186; 87205; 88309; 94002; 94003; 94640; 94760; 96365; 96375; 99285

== ENCOUNTER → 2019-03-05 | Outpatient (CLI) | payer OTHER, MEDICARE ==
--- NOTE | 2019-03-06 12:55 | PE ---
EXAMINATION TYPE: PET CT fusion skull to thigh DATE OF EXAM: 03/05/2019 COMPARISON: CT abdomen pelvis 01/12/2019 Prior PET/CT: None HISTORY: Cancer of colon and cecum TECHNIQUE: Following the intravenous administration of 14.313 mCi of F-18 FDG, whole body images are performed from the skull base to the midthigh. Images are reviewed on the computer in the coronal, axial, and sagittal planes. Reconstructed rotating images are created on independent workstation and reviewed on the computer. A localization and attenuation correction CT is performed in conjunction with the PET scan. DLP: 327.95 mGycm SCAN: Initial Blood glucose: 88 mg/dL Average Mediastinum SUV: 1.04 Average Liver SUV: 1.41 FINDINGS: NECK: No suspicious uptake. There is some mild paraspinal muscle uptake. THORAX: No suspicious uptake. Some mild uptake likely related to degenerative changes at the shoulder are in the anterior medial right shoulder with an SUV value 1.9. Uptake anterior to the glenoid is a lso present measuring 2.33, similar uptake is at the left shoulder glenoid. There is a subtle nodular area of uptake adjacent to the left heart border. PET image 33. This has an SUV value 2.83 and could be a metastatic lesion. This corresponds to a nodular density on the CT tera g windows. ABDOMEN: No abnormal uptake PELVIS: There is intense uptake within the region of the cecum. This has an SUV value measuring up to 9.4 compatible with the patient's known neoplasm. A lobular density extending to the anterior latera l abdominal wall is present which has an SUV value 5.9. This may be direct extension, a subtle fat pl ane appears to be present on both PET images and on CT images suggesting a metastatic lesion at the p eritoneal wall should be considered. PET Image 194. This area corresponds to prior abscess. No suspi cious adenopathy is identified. OSSEOUS STRUCTURES: No abnormal uptake LOCALIZATION CT: Scattered small lymph nodes are within the mediastinum. No abnormal uptake is eviden t. Ascending thoracic aorta at the level the main pulmonary artery is 4.5 cm the main pulmonary arter y the bifurcation is 2.8 cm. RF on lung windows there is a 1.0 x 1.4 cm nodular density along the lef t heart border conjunction with the major fissure. Series 3 image 134. This is hyperintense on the PE T images suggestive for metastatic lesion. COMPARISON: The area of intense uptake in the abdominal wall appears to be prior abscess. The uptake could be resolving abscess on the PET. IMPRESSION: 1. Marked uptake within the region of the cecum compatible with the patient's known colon cancer. 2. Nodular density within the anterior lateral right abdominal wall is uptake not typical for a neopl astic process. However, inflammatory change also be considered given recent abscess within this regio n. 3. Nodular density within the left heart border mediastinal border with uptake which could indicate n eoplastic process such as metastasis. 4. Ascending thoracic aortic aneurysm of 4.5 cm.
== END | disposition home or self-care (01) ==
LOC: RADPETMAIN 15:41
PROVIDERS: ATTEND Internal Medicine Hematology & Oncology
DX: C18.0 Malignant neoplasm of cecum (principal); I71.2 Thoracic aortic aneurysm, without rupture; R93.3 Abnormal findings on diagnostic imaging of other parts of digestive tract
CPT/HCPCS: 78815; A9552